=== PATIENT | female | born 1935 ===

== ENCOUNTER 2016-10-23 12:41 | Observation (INO) | payer MEDICARE ==
[2016-10-23 12:57] VITALS: BMI 21.4
[2016-10-23 13:02] VITALS: RESP 18; TEMP 98
--- NOTE | 2016-10-23 13:14 | ED PDOC ---
Arrival/HPI - General Historian: Patient - History of Present Illness Time/Duration: < week Symptom Onset: Gradual Symptom Course: Unchanged <Rikki White Jr. - Last Filed: 10/23/16 19:00> <Favian Nunes - Last Filed: 10/23/16 23:51> - General Chief Complaint: GI Problem Time Seen by Provider: 10/23/16 12:51 - History of Present Illness Narrative History of Present Illness (Text): 10/23/16 13:11 Patient is a 81 year old female whose past medical history includes hypertension , diabetes, hypothyroidism, neuropathy, anemia, and DVT presenting to the emergency department c/o nausea for the past two days. Patient also c/o having a decreased appetite. Denies vomiting, diarrhea, abdominal pain, chest pain, or fever. Patient also reports lower back pain; patient has a history of herniated discs (had surgery in the 1980s for the herniated discs). PMD: None (Rikki White Jr.) Modifying Factors (Text): None (Rikki White Jr.) Associated Symptoms (Text): None (Rikki White Jr.) Past Medical History - Provider Review Nursing Documentation Reviewed: Yes - Infectious Disease Hx of Infectious Diseases: None - Tetanus Immunization Tetanus Immunization: Unknown - Cardiac Hx Cardiac Disorders: Yes Hx Hypertension: Yes - Pulmonary Hx Respiratory Disorders: Yes Hx Chronic Obstructive Pulmonary Disease (COPD): Yes - Neurological Hx Neurological Disorder: Yes (NEUROPATHY, pain to both feet) Other/Comment: hand tremors - HEENT Hx HEENT Disorder: No - Renal Hx Renal Disorder: Yes Hx Renal Failure: Yes (CKD III) - Endocrine/Metabolic Hx Endocrine Disorders: Yes Hx Diabetes Mellitus Type 2: Yes Hx Hypothyroidism: Yes - Hematological/Oncological Hx Blood Disorders: Yes Hx Anemia: Yes - Integumentary Hx Dermatological Disorder: No - Musculoskeletal/Rheumatological Hx Musculoskeletal Disorders: Yes Hx Falls: Yes - Gastrointestinal Hx Gastrointestinal Disorders: Yes (gastroparesis/ constipation) Hx Gastroesophageal Reflux: Yes - Genitourinary/Gynecological Hx Genitourinary Disorders: No Hx Reproductive Disorders: No - Psychiatric Hx Psychophysiologic Disorder: Yes Hx Anxiety: Yes Hx Depression: No Hx Emotional Abuse: No Hx Physical Abuse: No Hx Substance Use: No - Surgical History Hx Appendectomy: Yes Hx Orthopedic Surgery: Yes (R/T HERNIATED DISC) - Anesthesia Hx Anesthesia: No Hx Anesthesia Reactions: No Hx Malignant Hyperthermia: No - Suicidal Assessment Feels Threatened In Home Enviroment: No <Rikki White Jr. - Last Filed: 10/23/16 19:00> Family/Social History - Physician Review Nursing Documentation Reviewed: Yes Family/Social History: Diabetes Smoking Status: Former Smoker Hx Alcohol Use: No Hx Substance Use: No Hx Substance Use Treatment: No <Rikki Wihte Jr. - Last Filed: 10/23/16 19:00> Allergies/Home Meds <Rikki White Jr. - Last Filed: 10/23/16 19:00> <Favian Nunes - Last Filed: 10/23/16 23:51> Allergies/Adverse Reactions: Allergies naproxen Allergy (Verified 10/23/16 13:00) RASH Home Medications: Home Meds Medication Instructions Recorded Confirmed Aspirin [Aspirin Chewable] 81 mg PO DAILY 08/28/16 08/28/16 Atorvastatin Calcium [Atorvastatin 10 mg PO DAILY 08/28/16 08/28/16 Calcium] Folic Acid [Folic Acid] 1 mg PO DAILY 08/28/16 08/28/16 Gabapentin [Neurontin] 400 mg PO HS 08/28/16 08/28/16 Levothyroxine [Synthroid] 75 mcg PO DAILY 08/28/16 08/28/16 Omeprazole [Omeprazole] 40 mg PO DAILY 08/28/16 08/28/16 Saxagliptin HCl/Metformin HCl 1 tab PO BID 08/28/16 08/28/16 [Kombiglyze Xr 2.5-1,000 mg Tab] Review of Systems - Physician Review All systems were reviewed & negative as marked: Yes - Review of Systems Constitutional: absent: Fevers Respiratory: absent: SOB Cardiovascular: absent: Chest Pain Gastrointestinal: Nausea. absent: Abdominal Pain, Diarrhea, Vomiting <Rikki White Jr. - Last Filed: 10/23/16 19:00> Physical Exam Vital Signs Reviewed: Yes Temperature: Afebrile Blood Pressure: Normal Pulse: Bradycardic Respiratory Rate: Normal Appearance: Positive for: Well-Appearing, Non-Toxic, Comfortable Pain Distress: None Mental Status: Positive for: Alert and Oriented X 3 - Systems Exam Head: Present: Atraumatic, Normocephalic Pupils: Present: PERRL Extroacular Muscles: Present: EOMI Conjunctiva: Present: Normal Mouth: Present: Moist Mucous Membranes Pharnyx: Present: Normal Nose (External): Present: Atraumatic Neck: Present: Normal Range of Motion Respiratory/Chest: Present: Clear to Auscultation, Good Air Exchange. No: Respiratory Distress, Accessory Muscle Use Cardiovascular: Present: Regular Rate and Rhythm, Normal S1, S2. No: Murmurs Abdomen: Present: Normal Bowel Sounds. No: Tenderness, Distention, Peritoneal Signs, Rebound, Guarding Back: Present: Normal Inspection Upper Extremity: Present: Normal Inspection. No: Cyanosis, Edema Lower Extremity: Present: Normal Inspection. No: Edema Neurological: Present: GCS=15, Speech Normal, Motor Func Grossly Intact, Normal Sensory Function Skin: Present: Warm, Dry, Normal Color. No: Rashes Psychiatric: Present: Alert, Oriented x 3, Normal Insight, Normal Concentration <Rikki White Jr. - Last Filed: 10/23/16 19:00> Vital Signs Temp Pulse Resp BP Pulse Ox 10/23/16 17:15 66 18 158/70 H 96 10/23/16 17:14 75 18 158/70 H 97 10/23/16 15:20 60 18 144/67 100 10/23/16 13:55 56 L 18 150/64 100 10/23/16 13:01 98.0 F 55 L 18 154/80 H 96 Medical Decision Making - RAD Interpretation [employer] Manager: Radiologist - EKG Interpretation Interpreted by ED Physician: Yes Type: 12 lead EKG <Rikki White Jr. - Last Filed: 10/23/16 19:00> <Favian Nunes - Last Filed: 10/23/16 23:51> ED Course and Treatment: Impression: Nausea Differential Diagnosis include but are not limited to: Dehydration, infection, electrolyte imbalance. Plan: -- Pepcid -- Labs -- Reassess and disposition -- Xrays Prior Visits: Notes and results from previous visits were reviewed. Patient last seen in ED on 08/28/16 for nausea/vomiting and discharged home. Pt has had CT scan in the past for her abdominal symptoms. Will not repeat CT right now; however, will order plain films. Progress Notes: 10/23/16 14:[address] Cabezas. He is familiar w/ the patient. He recommends treating in ED for hyperkalemia and he will come and evaluate the patient after his office hours. (Rikki White Jr.) - Lab Interpretations Lab Results: 10/23/16 13:40 10/23/16 14:22 Lab Results 10/23/16 14:22: Sodium 128 L, Potassium 5.8 H*, Chloride 97 L, Carbon Dioxide 21 , Anion Gap 16, BUN 19, Creatinine 1.7 H, Est GFR ( Amer) 35, Est GFR ( Non-Af Amer) 29, Random Glucose 84, Calcium 9.4 10/23/16 14:00: Urine Color Yellow, Urine Appearance Clear, Urine pH 6.5, Ur Specific Howe 1.010, Urine Protein Negative, Urine Glucose (UA) Negative, Urine Ketones Negative, Urine Blood Negative, Urine Nitrate Negative, Urine Bilirubin Negative, Urine Urobilinogen 0.2, Ur Leukocyte Esterase Negative 10/23/16 13:40: WBC 6.6, RBC 3.57, Hgb 11.6 L, Hct 33.3 L, MCV 93.3, MCH 32.5, MCHC 34.8, RDW 12.6, Plt Count 236, MPV 10.0, Gran % 53.4, Lymph % (Auto) 33.6, [place] % (Auto) 7.7 H, Eos % (Auto) 4.7, Baso % (Auto) 0.6, Gran # 3.53, Lymph # 2.2, [place] # 0.5, Eos # 0.3, Baso # 0.04, PT 11.3, INR 1.05, APTT 27.7, Sodium 131 L, Potassium 6.3 H* D, Chloride 95 L, Carbon Dioxide 25, Anion Gap 17, BUN 20, Creatinine 1.7 H, Est GFR ( Amer) 35, Est GFR (Non-Af Amer) 29, Random Glucose 85, Calcium 9.8, Total Bilirubin 0.6, AST 35, ALT 30, Alkaline Phosphatase 92, Lactate Dehydrogenase 431, Total Creatine Kinase 27 L, Troponin I < 0.01, Total Protein 8.6 H, Albumin 4.6, Globulin 4.0, Albumin/Globulin Ratio 1.2, Amylase 72, Lipase 56 - RAD Interpretation Narrative RAD Interpretations (Text): XR Abdomen Music Education Adjunct Professor: Tom Upton MD IMPRESSION: No active disease (Rikki White Jr.) Radiology Orders: 10/23/16 13:29 obstructive series [ABD 2 VIEWS (FLAT/UP OR DECUB)] [RAD] Stat - EKG Interpretation EKG Interpretation (Text): EKG shows sinus bradycardia at 52 BPM with sinus arrhythmia, no ST/T wave changes (Rikki White Jr.) - Medication Orders Current Medication Orders: Sodium Chloride (Sodium Chloride 0.9%) 1,000 mls @ 500 mls/hr IV .Q2H DIANA Last Admin: 10/23/16 14:45 Dose: 500 MLS/HR eMAR Start Stop Document 10/23/16 14:45 MMA (Rec: 10/23/16 14:45 MMA [email or web address] Intravenous Solution Start Date 10/23/16 Start Time 14:45 End Date 10/23/16 End time 16:45 Total Infusion Time 120 Discontinued Medications Albuterol Sulfate (Albuterol 0.083% Inhal Regina (2.5 Mg/3 Ml) Ud) 2.5 mg IH STAT STA Stop: 10/23/16 14:37 Last Admin: 10/23/16 15:00 Dose: 2.5 MG Dextrose (Dextrose 50% Inj) 50 ml IVP STAT STA Stop: 10/23/16 14:40 Last Admin: 10/23/16 15:00 Dose: 50 ML IVP Administration Document 10/23/16 15:00 MMA (Rec: 10/23/16 15:00 MMA [email or web address] Charges for Administration # of IVP Administrations 1 Famotidine (Pepcid) 20 mg IVP STAT STA Stop: 10/23/16 12:58 Last Admin: 10/23/16 13:32 Dose: 20 MG IVP Administration Document 10/23/16 13:32 MMA (Rec: 10/23/16 13:32 MMA [email or web address] Charges for Administration # of IVP Administrations 1 Sodium Chloride (Sodium Chloride 0.9%) 1,000 mls @ 100 mls/hr IV .Q10H DIANA Insulin Human Regular (Humulin R) 5 units IV STAT STA Stop: 10/23/16 14:40 Last Admin: 10/23/16 14:59 Dose: 5 UNITS eMAR Start Stop Document 10/23/16 14:59 MMA (Rec: 10/23/16 15:00 [email or web address]) Intravenous Solution Start Date 10/23/16 Start Time 14:59 End Date 10/23/16 End time 15:01 Total Infusion Time 2 Sodium Bicarbonate (Sodium Bicarbonate (8.4%) 50 Meq Syringe) 50 meq IVP ONCE ONE Stop: 10/23/16 14:39 Last Admin: 10/23/16 15:00 Dose: 50 MEQ IVP Administration Document 10/23/16 15:00 [facility] (Rec: 10/23/16 15:00 [email or web address]) Charges for Administration # of IVP Administrations 1 Sodium Polystyrene Sulfonate (Kayexalate Oral Susp) 15 gm PO STAT STA Stop: 10/23/16 14:18 Last Admin: 10/23/16 14:24 Dose: 15 GM Tramadol HCl (Ultram) 50 mg PO STAT STA Stop: 10/23/16 22:07 Last Admin: 10/23/16 22:45 Dose: 50 MG ED OBSERVATION Date of observation admission: 10/23/16 Time of observation admission: 14:41 <Rikki White Jr. - Last Filed: 10/23/16 19:00> Discharge: Yes <Favian Nunes - Last Filed: 10/23/16 23:51> - Observation admission statement Patient is being placed in observation because:: Pt's potassium is high. Will need to bring down potassium prior to sending the pt home. (Rikki White Jr.) - Goals of Observation Goals of observation are:: Improvement of hyperkalemia (Rikki White Jr.) - Progress Note Progress Note: 10/23/16 19:00 Case endorsed to me by Dr. White, pending re-evaluation by Dr. Cabezas. 10/23/16 22:[address] Cabezas, who states there is no reason to keep pt in hospital, potassium is now corrected. States he will follow-up outpt in his office tomorrow morning. (Favian Nunes) - Scribe Statement The provider has reviewed the documentation as recorded by the Scribe <Rikki Whtie Jr. - Last Filed: 10/23/16 19:00> <Favian Nunes - Last Filed: 10/23/16 23:51> - Scribe Statement Priyank Denton Provider Scribe Attestation: All medical record entries made by the Scribe were at my direction and personally dictated by me. I have reviewed the chart and agree that the record accurately reflects my personal performance of the history, physical exam, medical decision making, and the department course for this patient. I have also personally directed, reviewed, and agree with the discharge instructions and disposition. (Rikki White Jr.) Disposition/Present on Arrival - Present on Arrival Any Indicators Present on Arrival: No History of DVT/PE: No History of Uncontrolled Diabetes: No Urinary Catheter: No History of Decub. Ulcer: No History Surgical Site Infection Following: None - Disposition Have Diagnosis and Disposition been Completed?: Yes Disposition Time: 14:26 <Rikki White Jr. - Last Filed: 10/23/16 19:00> - Present on Arrival Any Indicators Present on Arrival: No - Disposition Have Diagnosis and Disposition been Completed?: Yes Disposition Time: 23:51 Patient Plan: Discharge <Favian Nunes - Last Filed: 10/23/16 23:51> - Disposition Diagnosis: Hyperkalemia, Nausea alone, Anorexia Disposition: HOME/ ROUTINE Patient Problems: Current Active Problems Problem Status Diagnosed Anorexia Acute Hyperkalemia Acute Nausea alone Acute Condition: GOOD Physician Patient Turnover - . Patient Signed Over To: Favian Nunes Handoff Comments: Pt s/o to Dr. Nunes at 7PM. Signout is to follow the recommendations of Dr. Cabezas. The plan is for Dr. Cabezas to come to the ED to assess the patient. <Rikki White Jr. - Last Filed: 10/23/16 19:00>
[2016-10-23 13:42] LABS: ADD MANUAL DIFF? NO
[2016-10-23 13:47] LABS: BASO # 0.04 K/mm3 (0.0-2.0); BASO % 0.6 % (0.0-3.0); EOS # 0.3 (0.0-0.7); EOS % 4.7 % (1.5-5.0); GRAN # 3.53 (1.4-6.5); GRAN % 53.4 % (50.0-68.0); HEMATOCRIT 33.3 % (36.0-48.0); LYMPH # 2.2 (1.2-3.4); LYMPH % 33.6 % (22.0-35.0); MEAN CELL VOLUME 93.3 fL (80.0-105.0); MEAN CORPUSCULAR HEMOGLOBIN 32.5 pg (25.0-35.0); MEAN CORPUSCULAR HGB CONC 34.8 g/dl (31.0-37.0); MONO # 0.5 (0.1-0.6); MONO % 7.7 % (1.0-6.0); PLATELET COUNT 236 10^3/uL (120.0-450.0); RED CELL DISTRIBUTION WIDTH 12.6 % (11.5-14.5); WHITE BLOOD COUNT 6.6 10^3/ul (4.5-11.0)
--- NOTE | 2016-10-23 13:54 | RAD ---
HISTORY: Pt c/o nausea COMPARISON: No prior. FINDINGS: BOWEL: Normal. No obstruction. No free air. Mild constipation left-sided: BONES: Normal. OTHER FINDINGS: None. IMPRESSION: No active disease.
[2016-10-23 13:57] LABS: INR 1.05 (0.93-1.08); PARTIAL THROMBOPLASTIN TIME 27.7 Seconds (23.7-30.8)
[2016-10-23 14:00] LABS: ALB/GLOB RATIO 1.2 (1.1-1.8); ALKALINE PHOSPHATASE 92 U/L (38-133); ALT/SGPT 30 U/L (7-56); AMYLASE 72 U/L (35-125); AST/SGOT 35 U/L (15-39); BILIRUBIN,TOTAL 0.6 mg/dL (0.2-1.3); BLOOD UREA NITROGEN 20 mg/dL (7-21); CALCIUM 9.8 mg/dL (8.4-10.5); CARBON DIOXIDE 25 mmol/L (21-33); CHLORIDE 95 mmol/L (98-107); GFR AFRICAN-AMERICAN 35; GLUCOSE,RANDOM 85 mg/dL (70-110); LIPASE 56 U/L (23-300); SODIUM 131 mmol/L (132-148); TOTAL PROTEIN 8.6 g/dL (5.8-8.3)
[2016-10-23 14:11] LABS: TROPONIN I < 0.01 ng/mL
[2016-10-23] MEDS ORDERED: Sod Polystyrene Sulf 15 gm/60 ml Oral Susp PO STA (14:17)
[2016-10-23 14:19] LABS: POTASSIUM 6.3 mmol/L (3.6-5.0)
[2016-10-23 14:26] LABS: PH,URINE 6.5 (4.7-8.0); URINE BILIRUBIN NEGATIVE (NEGATIVE); URINE BLOOD NEGATIVE (NEGATIVE); URINE GLUCOSE (UA) NEGATIVE (NEGATIVE); URINE KETONE NEGATIVE (NEGATIVE); URINE LEUKOCYTE ESTERASE NEGATIVE Leu/uL (NEGATIVE); URINE PROTEIN NEGATIVE mg/dL (<30 mg/dL); URINE UROBILINOGEN 0.2 E.U./dL (<1 E.U./dL)
[2016-10-23] MEDS ORDERED: Sodium Chloride 0.9% 1,000 ML IV SCH ×2 (14:30→14:37)
[2016-10-23] MEDS ORDERED: Albuterol 0.083% Inhal Sol (2.5 mg/3 mL) UD IH STA (14:36)
[2016-10-23] MEDS ORDERED: Sodium Bicarbonate (8.4%) 50 Meq Syringe IVP ONE (14:38)
[2016-10-23 14:39] LABS: URINE APPEARANCE CLEAR (CLEAR); URINE COLOR YELLOW (YELLOW)
[2016-10-23] MEDS ORDERED: Insulin Regular 1 UNITS/0.01 ML ML IV STA (14:39)
[2016-10-23] MEDS ORDERED: Dextrose 50% SYRINGE Inj (50 ml) IVP STA (14:39)
[2016-10-23 14:48] LABS: CALCIUM 9.4 mg/dL (8.4-10.5)
[2016-10-23 14:51] LABS: POTASSIUM 5.8 mmol/L (3.6-5.0)
[2016-10-23 17:16] VITALS: PULSE 66
[2016-10-23 17:27] LABS: BLOOD UREA NITROGEN 18 mg/dL (7-21); CALCIUM 9.1 mg/dL (8.4-10.5); CARBON DIOXIDE 24 mmol/L (21-33); CHLORIDE 99 mmol/L (98-107); GFR AFRICAN-AMERICAN 38; GLUCOSE,RANDOM 79 mg/dL (70-110); POTASSIUM 4.8 mmol/L (3.6-5.0); SODIUM 135 mmol/L (132-148)
[2016-10-23 17:40] LABS: TROPONIN I < 0.01 ng/mL
[2016-10-24 00:43] VITALS: BP 164/72; O2SAT 95
--- NOTE | 2016-10-24 08:59 | CARD ---
APPROVED REPORT EKG Measurement Heart [id number] <Conclusion> Sinus bradycardia with sinus arrhythmia Inferior infarct, age undetermined Abnormal ECG
== END 2016-10-23 23:51 | disposition home or self-care (01) ==
LOC: ED 12:41 → EROBSV 14:40
PROVIDERS: ADMIT Emergency Medicine; ATTEND Emergency Medicine
DX: K31.84 Gastroparesis (principal); E87.5 Hyperkalemia; R63.0 Anorexia; Z87.891 Personal history of nicotine dependence; I12.9 Hypertensive chronic kidney disease with stage 1 through stage 4 chronic kidney disease, or unspecified chronic kidney disease; N18.3 Chronic kidney disease, stage 3 (moderate); E11.9 Type 2 diabetes mellitus without complications
CPT/HCPCS: 74020; 80053; 81003; 82150; 82550; 82948; 83615; 83690; 84132; 84484; 85025; 85610; 85730; 93005; 94640; 96361; 96374; 96375; 99285; G0378; J7040

== ENCOUNTER 2017-01-25 09:21 | Emergency (ER) | payer MEDICARE ==
[2017-01-25 09:34] VITALS: BMI 23.4
[2017-01-25 09:36] VITALS: TEMP 98.7; O2SAT 99
--- NOTE | 2017-01-25 09:55 | ED PDOC ---
Arrival/HPI - General Chief Complaint: Hip Pain Time Seen by Provider: 01/25/17 09:47 Historian: Patient - History of Present Illness Narrative History of Present Illness (Text): 01/25/17 09:48 Mirela Guadalupe is a 81 year old female, with a history of CAD, COPD, hypertension , diabetes, hypothyroidism, and neuropathy, presents to the emergency department complaining of 1 week duration of intermittent right hip pain radiating down right leg. Describes symptoms as "sticking with needle." Patient used to be on Gabapentin for neuropathy, but is currently not taking it. States she took Tramadol for minimal symptomatic relief. Denies any numbness/weakness of extremity. No history of trauma. Denies any fever, chills, headache, chest pain, shortness of breath, abdominal pain, nausea, vomiting, diarrhea, or any other complaints at this time. Time/Duration: 1 week Symptom Onset: Gradual Symptom Course: Intermittent Severity Level: Mild Activities at Onset: Light Past Medical History - Provider Review Nursing Documentation Reviewed: Yes - Infectious Disease Hx of Infectious Diseases: None - Tetanus Immunization Tetanus Immunization: Unknown - Cardiac Hx Cardiac Disorders: Yes Hx Hypertension: Yes - Pulmonary Hx Respiratory Disorders: Yes Hx Chronic Obstructive Pulmonary Disease (COPD): Yes - Neurological Hx Neurological Disorder: Yes (NEUROPATHY, pain to both feet) Other/Comment: hand tremors - HEENT Hx HEENT Disorder: No - Renal Hx Renal Disorder: Yes Hx Renal Failure: Yes (CKD III) - Endocrine/Metabolic Hx Endocrine Disorders: Yes Hx Diabetes Mellitus Type 2: Yes Hx Hypothyroidism: Yes - Hematological/Oncological Hx Blood Disorders: Yes Hx Anemia: Yes - Integumentary Hx Dermatological Disorder: No - Musculoskeletal/Rheumatological Hx Musculoskeletal Disorders: Yes Hx Falls: Yes - Gastrointestinal Hx Gastrointestinal Disorders: Yes (gastroparesis/ constipation) Hx Gastroesophageal Reflux: Yes - Genitourinary/Gynecological Hx Genitourinary Disorders: No Hx Reproductive Disorders: No - Psychiatric Hx Psychophysiologic Disorder: Yes Hx Anxiety: Yes Hx Depression: No Hx Emotional Abuse: No Hx Physical Abuse: No Hx Substance Use: No - Surgical History Hx Appendectomy: Yes Hx Orthopedic Surgery: Yes (R/T HERNIATED DISC) - Anesthesia Hx Anesthesia: No Hx Anesthesia Reactions: No Hx Malignant Hyperthermia: No - Suicidal Assessment Feels Threatened In Home Enviroment: No Family/Social History - Physician Review Nursing Documentation Reviewed: Yes Family/Social History: No Known Family HX Smoking Status: Former Smoker Hx Alcohol Use: No Hx Substance Use: No Hx Substance Use Treatment: No Allergies/Home Meds Allergies/Adverse Reactions: Allergies naproxen Allergy (Verified 01/25/17 09:31) RASH Home Medications: Home Meds Medication Instructions Recorded Confirmed Aspirin [Aspirin Chewable] 81 mg PO DAILY 08/28/16 01/25/17 Folic Acid [Folic Acid] 1 mg PO DAILY 08/28/16 01/25/17 Gabapentin [Neurontin] 400 mg PO HS 08/28/16 01/25/17 Levothyroxine [Synthroid] 75 mcg PO DAILY 08/28/16 01/25/17 Omeprazole [Omeprazole] 40 mg PO DAILY 08/28/16 01/25/17 Atorvastatin Calcium 10 mg PO DAILY 01/25/17 01/25/17 Saxagliptin HCl/Metformin HCl 1 ter PO DAILY 01/25/17 01/25/17 [Kombiglyze Xr 1000 mg-2.5 mg] traMADol [Ultram] 50 mg PO TID PRN 01/25/17 01/25/17 Review of Systems - Physician Review All systems were reviewed & negative as marked: Yes - Review of Systems Constitutional: Normal. absent: Fatigue, Fevers Respiratory: Normal. absent: SOB, Cough, Sputum Cardiovascular: Normal. absent: Chest Pain, Palpitations Gastrointestinal: Normal. absent: Abdominal Pain, Diarrhea, Nausea Genitourinary Female: Normal Musculoskeletal: Other (Right hip pain radiating down right leg ) Neurological: Normal. absent: Headache, Dizziness Psychiatric: Normal Physical Exam Vital Signs Reviewed: Yes Vital Signs Temp Pulse Resp BP Pulse Ox 01/25/17 10:52 62 18 179/74 H 99 01/25/17 09:35 98.7 F 60 17 185/85 H 99 Temperature: Afebrile Blood Pressure: Hypertensive Pulse: Regular Respiratory Rate: Normal Appearance: Positive for: Well-Appearing, Non-Toxic, Comfortable Pain Distress: None Mental Status: Positive for: Alert and Oriented X 3 - Systems Exam Head: Present: Atraumatic, Normocephalic Pupils: Present: PERRL Extroacular Muscles: Present: EOMI Conjunctiva: Present: Normal Mouth: Present: Moist Mucous Membranes Respiratory/Chest: Present: Clear to Auscultation, Good Air Exchange. No: Respiratory Distress, Accessory Muscle Use Cardiovascular: Present: Regular Rate and Rhythm, Normal S1, S2. No: Murmurs Abdomen: Present: Normal Bowel Sounds. No: Tenderness, Distention, Peritoneal Signs, Rebound, Guarding Upper Extremity: Present: Normal Inspection. No: Cyanosis, Edema Lower Extremity: Present: Normal Inspection, NORMAL PULSES, Normal ROM, Neurovascularly Intact, Capillary Refill < 2 s. No: Edema, CALF TENDERNESS, Cyanosis, Tenderness, Swelling, Erythema, Deformity, Temperature Abnormalties Neurological: Present: GCS=15, CN II-XII Intact, Speech Normal Skin: Present: Warm, Dry, Normal Color. No: Rashes Psychiatric: Present: Alert, Oriented x 3, Normal Insight, Normal Concentration Medical Decision Making ED Course and Treatment: 01/25/17 09:57 Impression: A 81 year old female who presents to the emergency department complaining of 1 week duration intermittent right hip pain radiating down right leg. Differential Diagnosis included but are not limited to: Plan: -- Tylenol -- R.Hip X-ray -- Reassess and disposition Progress Notes: 01/25/17 11:20 Patient's blood glucose level was elevated in the emergency department. She admits she is not compliant with her diabetic medication at home. Denies any fever, polydipsia, polyuria, or polyphagia. Will discharge patient home with pain medication for right hip pain and diabetic medication that is on the computer system. Patient is stable for discharge. Advised to f/u with PMD within 3-4 days and present to emergency department for new/worsening symptoms. - RAD Interpretation Radiology Orders: 01/25/17 09:54 HIP MIN 2V W/ PELVIS RT [RAD] Stat - Medication Orders Current Medication Orders: Discontinued Medications Acetaminophen (Tylenol 325mg Tab) 975 mg PO STAT STA Stop: 01/25/17 09:55 Last Admin: 01/25/17 10:04 Dose: 975 mg Metformin HCl (Glucophage) 500 mg PO STAT STA Stop: 01/25/17 10:36 Last Admin: 01/25/17 10:49 Dose: 500 mg - Scribe Statement The provider has reviewed the documentation as recorded by the Kay Domingo Provider Attestation: Provider Scribe Attestation: All medical record entries made by the Kay were at my direction and personally dictated by me. I have reviewed the chart and agree that the record accurately reflects my personal performance of the history, physical exam, medical decision making, and the department course for this patient. I have also personally directed, reviewed, and agree with the discharge instructions and disposition. Disposition/Present on Arrival - Present on Arrival Any Indicators Present on Arrival: Yes History of DVT/PE: No History of Uncontrolled Diabetes: Yes Urinary Catheter: No History of Decub. Ulcer: No History Surgical Site Infection Following: None - Disposition Have Diagnosis and Disposition been Completed?: Yes Diagnosis: Osteoarthritis (arthritis due to wear and tear of joints), Hyperglycemia due to type 2 diabetes mellitus Disposition: HOME/ ROUTINE Disposition Time: 10:45 Condition: IMPROVED Discharge Instructions (ExitCare): Osteoarthritis (ED), Diabetic Hyperglycemia (ED) Additional Instructions: Thank you for letting us take care of you today. Your provider was Dr. Avery. You were treated for arthritis of the hip and elevated blood sugar. The emergency medical care you received today was directed at your acute symptoms. If you were prescribed any medication, please fill it and take as directed. It may take several days for your symptoms to resolve. Return to the Emergency Department if your symptoms worsen, do not improve, or if you have any other problems. Please contact your doctor or call one of the physicians/clinics you have been referred to that are listed on the Patient Visit Information form that is included in your discharge packet. Bring any paperwork you were given at discharge with you along with any medications you are taking to your follow up visit. Our treatment cannot replace ongoing medical care by a primary care provider (PCP) outside of the emergency department. Thank you for allowing the [facility] team to be part of your care today. Take the prescription medications as directed. Follow up with your primary doctor in 2-3 days for re-evaluation and management. Prescriptions: Gabapentin [Neurontin] 300 mg PO DAILY #7 capsule metFORMIN [glucOPHAGE] 500 mg PO DAILY #10 tab traMADol [Ultram] 50 mg PO Q6 PRN #15 tab PRN Reason: Pain, Severe (8-10) Referrals: PCP,NO [Primary Care Provider] - Follow up with primary
--- NOTE | 2017-01-25 10:41 | RAD ---
PROCEDURE: Radiographs of the Pelvis and right hip INDICATION: COMPARISON: None. FINDINGS: AP view of the pelvis and frog-lateral view of the right hip were obtained. The pelvic ring is intact. There is no evidence of fracture, dislocation or other significant bony abnormality. There is mild degenerative osteoarthrosis in the hip joints. The sacroiliac joints are normal. . There is diffuse bone demineralization.. The visualized soft tissues are unremarkable. IMPRESSION: No acute displaced fracture or dislocation. Please note occult fractures cannot be excluded on plain radiographs. If there is a persistent clinical concern, an MRI of the hip may be performed for further evaluation.
[2017-01-25 10:59] VITALS: BP 179/74; PULSE 62; RESP 18
== END 2017-01-25 12:00 | disposition home or self-care (01) ==
LOC: ED 09:21
DX: E11.65 Type 2 diabetes mellitus with hyperglycemia (principal); M19.90 Unspecified osteoarthritis, unspecified site; I12.9 Hypertensive chronic kidney disease with stage 1 through stage 4 chronic kidney disease, or unspecified chronic kidney disease; N18.3 Chronic kidney disease, stage 3 (moderate); E03.9 Hypothyroidism, unspecified; J44.9 Chronic obstructive pulmonary disease, unspecified

== ENCOUNTER 2017-08-30 11:58 | Emergency (ER) | payer MEDICARE ==
[2017-08-30 12:01] VITALS: BMI 23.6
[2017-08-30] MEDS ORDERED: Famotidine 20mg/50ml 20 MG/50 ML BAG IVPB STA (12:34)
--- NOTE | 2017-08-30 12:41 | ED PDOC ---
Arrival/HPI - General Chief Complaint: GI Problem Time Seen by Provider: 08/30/17 12:23 Historian: Patient - History of Present Illness Narrative History of Present Illness (Text): 08/30/17 12:37 82 year old female, with past medical history of CAD, COPD, hypertension, diabetes, hypothyroidism and neuropathy, presents to the Emergency department complaining of abdominal discomfort since few days. Patient informs burning sensation in her stomach, making it difficult to comply with her diet. Patient denies any stomach ulcer in the past. Patient additionally informs associated chronic bilateral leg discomfort and diarrhea. Patient denies any fever, chills , nausea, vomiting, hematochezia, chest pain, shortness of breath or any other complaints. PMD: NO PMD Time/Duration: < week Symptom Onset: Gradual Symptom Course: Unchanged Quality: Burning Activities at Onset: Light Context: Home Past Medical History - Provider Review Nursing Documentation Reviewed: Yes - Infectious Disease Hx of Infectious Diseases: None - Tetanus Immunization Tetanus Immunization: Unknown - Cardiac Hx Cardiac Disorders: Yes Hx Hypertension: Yes - Pulmonary Hx Respiratory Disorders: Yes Hx Chronic Obstructive Pulmonary Disease (COPD): Yes - Neurological Hx Neurological Disorder: Yes (NEUROPATHY, pain to both feet) Other/Comment: hand tremors - HEENT Hx HEENT Disorder: No - Renal Hx Renal Disorder: Yes Hx Renal Failure: Yes (CKD III) - Endocrine/Metabolic Hx Endocrine Disorders: Yes Hx Diabetes Mellitus Type 2: Yes Hx Hypothyroidism: Yes - Hematological/Oncological Hx Blood Disorders: Yes Hx Anemia: Yes - Integumentary Hx Dermatological Disorder: No - Musculoskeletal/Rheumatological Hx Musculoskeletal Disorders: Yes Hx Falls: Yes - Gastrointestinal Hx Gastrointestinal Disorders: Yes (gastroparesis/ constipation) Hx Gastroesophageal Reflux: Yes - Genitourinary/Gynecological Hx Genitourinary Disorders: No Hx Reproductive Disorders: No - Psychiatric Hx Psychophysiologic Disorder: Yes Hx Anxiety: Yes Hx Depression: No Hx Emotional Abuse: No Hx Physical Abuse: No Hx Substance Use: No - Surgical History Hx Appendectomy: Yes Hx Orthopedic Surgery: Yes (R/T HERNIATED DISC) - Anesthesia Hx Anesthesia: Yes Hx Anesthesia Reactions: No Hx Malignant Hyperthermia: No - Suicidal Assessment Feels Threatened In Home Enviroment: No Family/Social History - Physician Review Nursing Documentation Reviewed: Yes Family/Social History: No Known Family HX Smoking Status: Former Smoker Hx Alcohol Use: No Hx Substance Use: No Hx Substance Use Treatment: No Allergies/Home Meds Allergies/Adverse Reactions: Allergies naproxen Allergy (Verified 01/25/17 09:31) RASH Home Medications: Home Meds Medication Instructions Recorded Confirmed Aspirin [Aspirin Chewable] 81 mg PO DAILY 08/28/16 08/30/17 Levothyroxine [Synthroid] 75 mcg PO DAILY 08/28/16 08/30/17 Omeprazole [Omeprazole] 40 mg PO DAILY 08/28/16 08/30/17 traMADol [Ultram] 50 mg PO TID PRN 01/25/17 08/30/17 ALPRAZolam [Xanax] 1 tab PO QID 08/30/17 08/30/17 Gabapentin [Neurontin] 300 mg PO TID 08/30/17 08/30/17 GlipiZIDE [Glucotrol] 1 tab PO BID 08/30/17 08/30/17 Metoprolol Tartrate [Lopressor] 1 tab PO BID 08/30/17 08/30/17 Mirtazapine [Remeron] 1 tab PO HS 08/30/17 08/30/17 Multivitamin [Honey Bears] 1 tab PO DAILY 08/30/17 08/30/17 SITagliptin [Januvia] 1 tab PO DAILY 08/30/17 08/30/17 Zolpidem [Ambien] 1 tab PO HS 08/30/17 08/30/17 metFORMIN [glucOPHAGE] 1,000 mg PO BID 08/30/17 08/30/17 Review of Systems - Physician Review All systems were reviewed & negative as marked: Yes - Review of Systems Constitutional: Normal. absent: Fevers Eyes: Normal ENT: Normal Respiratory: Normal. absent: SOB Cardiovascular: Normal. absent: Chest Pain Gastrointestinal: Abdominal Pain (burning sensation of stomach), Diarrhea, Appetite Changes. absent: Nausea, Vomiting, Hematochezia Genitourinary Female: Normal Musculoskeletal: Other (chronic bilateral leg discomfort) Skin: Normal Neurological: Normal Endocrine: Normal Hemo/Lymphatic: Normal Psychiatric: Normal Physical Exam Vital Signs Reviewed: Yes Vital Signs Temp Pulse Resp BP Pulse Ox 08/30/17 15:41 97.8 F 63 19 130/57 L 96 08/30/17 14:19 59 L 18 122/72 97 08/30/17 12:04 97.5 F L 66 18 157/93 H 100 Temperature: Afebrile Blood Pressure: Hypertensive Pulse: Regular Respiratory Rate: Normal Appearance: Positive for: Non-Toxic, Comfortable, Other (pale) Pain Distress: None Mental Status: Positive for: Alert and Oriented X 3 - Systems Exam Head: Present: Atraumatic, Normocephalic Pupils: Present: PERRL Extroacular Muscles: Present: EOMI Conjunctiva: Present: Normal Mouth: Present: Moist Mucous Membranes Neck: Present: Normal Range of Motion Respiratory/Chest: Present: Clear to Auscultation, Good Air Exchange. No: Respiratory Distress, Accessory Muscle Use Cardiovascular: Present: Regular Rate and Rhythm, Normal S1, S2. No: Murmurs Abdomen: Present: Normal Bowel Sounds. No: Tenderness, Distention, Peritoneal Signs Back: Present: Normal Inspection Upper Extremity: Present: Normal Inspection. No: Cyanosis, Edema Lower Extremity: Present: Normal Inspection, Other (mild discomfort upon elevation of right leg). No: Edema Neurological: Present: GCS=15, CN II-XII Intact, Speech Normal Skin: Present: Warm, Dry, Pale. No: Rashes Psychiatric: Present: Alert, Oriented x 3, Normal Insight, Normal Concentration Medical Decision Making ED Course and Treatment: 08/30/17 12:44 Impression: 82 year old female presents to the Emergency department for burning sensation to stomach. Plan: -- Labs -- Famotidine -- Reassess and disposition Progress Notes: 08/30/17 17:21 labs much better; feels better; stable for discharge - Lab Interpretations Lab Results: 08/30/17 12:30 08/30/17 15:55 Lab Results 08/30/17 15:55: Potassium 4.3 08/30/17 15:36: POC Glucose (mg/dL) 132 H 08/30/17 12:30: Sodium 130 L, Potassium 5.6 H*, Chloride 91 L, Carbon Dioxide 23 , Anion Gap 22 H, BUN 22 H, Creatinine 1.6 H, Est GFR ( Amer) 38, Est GFR (Non-Af Amer) 31, Random Glucose 303 H* D, Calcium 9.8, Total Bilirubin 0.3 , AST 27, ALT 28, Alkaline Phosphatase 78, Total Protein 7.5, Albumin 4.1, Globulin 3.5, Albumin/Globulin Ratio 1.2, Amylase 46, Lipase 84 08/30/17 12:30: WBC 7.8, RBC 3.76, Hgb 11.0 L, Hct 33.7 L, MCV 89.6, MCH 29.3, MCHC 32.6, RDW 14.0, Plt Count 267, MPV 10.4, Gran % 67.6, Lymph % (Auto) 24.6, [place] % (Auto) 5.3, Eos % (Auto) 2.2, Baso % (Auto) 0.3, Gran # 5.26, Lymph # ( Auto) 1.9, [place] # (Auto) 0.4, Eos # (Auto) 0.2, Baso # (Auto) 0.02 - Medication Orders Current Medication Orders: Discontinued Medications Famotidine (Pepcid 20mg/50ml Premix) 20 mg in 50 mls @ 100 mls/hr IVPB STAT STA Stop: 08/30/17 13:03 Last Admin: 08/30/17 12:58 Dose: 100 mls/hr eMAR Start Stop Document 08/30/17 12:58 EAR (Rec: 08/30/17 12:59 EAR [id number]) Intravenous Solution Start Date 08/30/17 Start Time 12:58 End Date 08/30/17 End time 13:25 Total Infusion Time 27 Sodium Chloride (Sodium Chloride 0.9%) 1,000 mls @ 999 mls/hr IV .Q1H1M STA Stop: 08/30/17 14:23 Last Admin: 08/30/17 14:13 Dose: 999 mls/hr eMAR Start Stop Document 08/30/17 14:13 EAR (Rec: 08/30/17 14:14 EAR [id number]) Intravenous Solution Start Date 08/30/17 Start Time 14:13 End Date 08/30/17 End time 15:15 Total Infusion Time 62 Insulin Human Regular (Humulin R) 10 units SC STAT STA Stop: 08/30/17 13:25 Last Admin: 08/30/17 14:09 Dose: 10 units Subcutaneous Administrations Document 08/30/17 14:09 EAR (Rec: 08/30/17 14:10 EAR [id number]) Injection Site MAR Injection Site Left Deltoid Charges for Administration # of Subcutaneous Administrations 1 Sodium Polystyrene Sulfonate (Kayexalate Susp) 15 gm PO STAT STA Stop: 08/30/17 13:25 Last Admin: 08/30/17 14:11 Dose: 15 gm - Scribe Statement The provider has reviewed the documentation as recorded by the Scribe Wilmer Melo. All medical record entries made by the Scribe were at my direction and personally dictated by me. I have reviewed the chart and agree that the record accurately reflects my personal performance of the history, physical exam, medical decision making, and the department course for this patient. I have also personally directed, reviewed, and agree with the discharge instructions and disposition. Disposition/Present on Arrival - Present on Arrival Any Indicators Present on Arrival: No History of DVT/PE: No History of Uncontrolled Diabetes: Yes Urinary Catheter: No History of Decub. Ulcer: No History Surgical Site Infection Following: None - Disposition Have Diagnosis and Disposition been Completed?: Yes Diagnosis: Hyperglycemia, Hyperkalemia, Gastritis Disposition: HOME/ ROUTINE Disposition Time: 17:30 Patient Plan: Discharge Condition: IMPROVED Discharge Instructions (ExitCare): Gastritis, Hyperglycemia, Adult, Hyperkalemia Referrals: Shellcatchjose g Dunbar, [Primary Care Provider] - Follow up with primary Forms: [employer] (Setswana)
[2017-08-30 13:20] LABS: ALB/GLOB RATIO 1.2 (1.1-1.8)
[2017-08-30] MEDS ORDERED: Sodium Chloride 0.9% 1,000 ML IV STA (13:23)
[2017-08-30] MEDS ORDERED: Insulin Regular 1 UNITS/0.01 ML ML SC STA (13:24)
[2017-08-30] MEDS ORDERED: Sod Polystyrene Sulf 15 gm/60 ml Susp PO STA (13:24)
[2017-08-30 13:29] LABS: BASO # 0.02 K/mm3 (0.0-2.0); BASO % 0.3 % (0.0-3.0); EOS # 0.2 (0.0-0.7); EOS % 2.2 % (1.5-5.0); GRAN # 5.26 (1.4-6.5); GRAN % 67.6 % (50.0-68.0); LYMPH # 1.9 (1.2-3.4); LYMPH % 24.6 % (22.0-35.0); MEAN CELL VOLUME 89.6 fl (80.0-105.0); MEAN CORPUSCULAR HEMOGLOBIN 29.3 pg (25.0-35.0); MEAN CORPUSCULAR HGB CONC 32.6 g/dl (31.0-37.0); MEAN PLATELET VOLUME 10.4 fl (7.0-11.0); MONO # 0.4 (0.1-0.6); MONO % 5.3 % (1.0-6.0); RBC 3.76 10^6/uL (3.5-6.1); WHITE BLOOD COUNT 7.8 10^3/ul (4.5-11.0)
[2017-08-30 13:38] LABS: ALBUMIN 4.1 g/dL (3.0-4.8); CALCIUM 9.8 mg/dL (8.4-10.5)
[2017-08-30 15:42] VITALS: BP 130/57; PULSE 63; RESP 19; TEMP 97.8
[2017-08-30 17:48] VITALS: O2SAT 99
== END 2017-08-30 17:48 | disposition home or self-care (01) ==
LOC: ED 11:58
DX: K29.70 Gastritis, unspecified, without bleeding (principal); E11.65 Type 2 diabetes mellitus with hyperglycemia; E87.5 Hyperkalemia; I25.10 Atherosclerotic heart disease of native coronary artery without angina pectoris; I12.9 Hypertensive chronic kidney disease with stage 1 through stage 4 chronic kidney disease, or unspecified chronic kidney disease; E11.22 Type 2 diabetes mellitus with diabetic chronic kidney disease; N18.3 Chronic kidney disease, stage 3 (moderate); Z87.891 Personal history of nicotine dependence
CPT/HCPCS: 80053; 82150; 82948; 83690; 84132; 85025; 96361; 96365; 99284; J7040

== ENCOUNTER 2017-10-14 12:16 | Emergency (ER) | payer MEDICARE ==
[2017-10-14 12:17] VITALS: BMI 23.6
[2017-10-14 12:28] VITALS: TEMP 98.3
[2017-10-14 12:40] VITALS: RESP 18
[2017-10-14] MEDS ORDERED: Famotidine 20mg/50ml 20 MG in Premixed IV 50 EA IVPB STA (12:42)
[2017-10-14] MEDS ORDERED: Alum-Mag Hydrox-Simethicone Susp (30 mL) PO STA (12:50)
[2017-10-14] MEDS ORDERED: Famotidine 20mg/50ml 20 MG/50 ML BAG IVPB STA (12:51)
--- NOTE | 2017-10-14 12:56 | ED PDOC ---
Arrival/HPI - General Chief Complaint: Abdominal Pain Time Seen by Provider: 10/14/17 12:22 Historian: Patient - History of Present Illness Narrative History of Present Illness (Text): 10/14/17 12:50 A 82 year old female presents to the emergency department complaining of epigastric burning radiating into the since last night. She reports that she has a sour taste in her mouth. Patient notes 1 episode of vomiting this morning. Patient was seen 3 weeks ago for same symptoms and was instructed to see a cost estimating manager. She reports that she made the initial appt but when she called today for a follow-up appt, because he was on vacation she came to the ED instead. Denies any new symptoms. Denies abdominal pain. Denies urinary complaints. Reports normal bowel and bladder habits. Denies chest pain or shortness of breath. Denies fever. reports that symptoms are always related to food intake. 10/14/17 16:24 Time/Duration: Other (last night) Symptom Course: Unchanged Quality: Burning Context: Home Past Medical History - Provider Review Nursing Documentation Reviewed: Yes - Infectious Disease Hx of Infectious Diseases: None - Tetanus Immunization Tetanus Immunization: Unknown - Cardiac Hx Cardiac Disorders: Yes Hx Hypertension: Yes - Pulmonary Hx Respiratory Disorders: Yes Hx Chronic Obstructive Pulmonary Disease (COPD): Yes - Neurological Hx Neurological Disorder: Yes (NEUROPATHY) Other/Comment: hand tremors - HEENT Hx HEENT Disorder: No - Renal Hx Renal Disorder: Yes Hx Renal Failure: Yes (CKD III) - Endocrine/Metabolic Hx Endocrine Disorders: Yes Hx Diabetes Mellitus Type 2: Yes Hx Hypothyroidism: Yes - Hematological/Oncological Hx Blood Disorders: Yes Hx Anemia: Yes - Integumentary Hx Dermatological Disorder: No - Musculoskeletal/Rheumatological Hx Musculoskeletal Disorders: Yes Hx Falls: Yes - Gastrointestinal Hx Gastrointestinal Disorders: Yes (gastroparesis/ constipation) Hx Gastroesophageal Reflux: Yes - Genitourinary/Gynecological Hx Genitourinary Disorders: No Hx Reproductive Disorders: No - Psychiatric Hx Psychophysiologic Disorder: Yes Hx Anxiety: Yes Hx Depression: No Hx Emotional Abuse: No Hx Physical Abuse: No Hx Substance Use: No - Surgical History Hx Appendectomy: Yes Hx Orthopedic Surgery: Yes (R/T HERNIATED DISC) - Anesthesia Hx Anesthesia: Yes Hx Anesthesia Reactions: No Hx Malignant Hyperthermia: No - Suicidal Assessment Feels Threatened In Home Enviroment: No Family/Social History - Physician Review Nursing Documentation Reviewed: Yes Family/Social History: No Known Family HX Smoking Status: Former Smoker Hx Alcohol Use: No Hx Substance Use: No Hx Substance Use Treatment: No Allergies/Home Meds Allergies/Adverse Reactions: Allergies naproxen Allergy (Verified 10/14/17 12:21) RASH Home Medications: Home Meds Medication Instructions Recorded Confirmed Aspirin [Aspirin Chewable] 81 mg PO DAILY 08/28/16 10/14/17 Levothyroxine [Synthroid] 75 mcg PO DAILY 08/28/16 10/14/17 Omeprazole [Omeprazole] 40 mg PO DAILY 08/28/16 10/14/17 traMADol [Ultram] 50 mg PO TID PRN 01/25/17 10/14/17 ALPRAZolam [Xanax] 1 tab PO QID 08/30/17 10/14/17 Gabapentin [Neurontin] 300 mg PO TID 08/30/17 10/14/17 GlipiZIDE [Glucotrol] 1 tab PO BID 08/30/17 10/14/17 Metoprolol Tartrate [Lopressor] 1 tab PO BID 08/30/17 10/14/17 Mirtazapine [Remeron] 1 tab PO HS 08/30/17 10/14/17 Multivitamin [Honey Bears] 1 tab PO DAILY 08/30/17 10/14/17 SITagliptin [Januvia] 1 tab PO DAILY 08/30/17 10/14/17 Zolpidem [Ambien] 1 tab PO HS 08/30/17 10/14/17 metFORMIN [glucOPHAGE] 1,000 mg PO BID 08/30/17 10/14/17 Review of Systems - Physician Review All systems were reviewed & negative as marked: Yes - Review of Systems Constitutional: absent: Fevers, Night Sweats Respiratory: absent: SOB, Cough, Sputum, Wheezing Cardiovascular: absent: Chest Pain, Palpitations, Edema, Calf Pain, LOPEZ, Orthopnea, Syncope Gastrointestinal: Abdominal Pain (epigastric burning after food intake), Vomiting. absent: Constipation, Diarrhea Genitourinary Female: absent: Dysuria, Frequency, Hematuria Skin: absent: Rash Neurological: absent: Headache, Dizziness Physical Exam Vital Signs Reviewed: Yes Vital Signs Temp Pulse Resp BP Pulse Ox 10/14/17 15:52 72 18 164/82 H 99 10/14/17 14:00 68 18 162/69 H 100 10/14/17 13:30 65 18 168/75 H 100 10/14/17 12:39 98.3 F 67 18 178/81 H 100 10/14/17 12:24 98.3 F 67 17 178/81 H 99 Temperature: Afebrile Blood Pressure: Hypertensive Pulse: Regular Respiratory Rate: Normal Appearance: Positive for: Well-Appearing, Non-Toxic, Comfortable Pain Distress: None Mental Status: Positive for: Alert and Oriented X 3 - Systems Exam Head: Present: Atraumatic, Normocephalic Pupils: Present: PERRL Extroacular Muscles: Present: EOMI Conjunctiva: Present: Normal Mouth: Present: Moist Mucous Membranes Neck: Present: Normal Range of Motion Respiratory/Chest: Present: Clear to Auscultation, Good Air Exchange. No: Respiratory Distress, Accessory Muscle Use Cardiovascular: Present: Regular Rate and Rhythm, Normal S1, S2. No: Murmurs Abdomen: No: Tenderness, Distention, Peritoneal Signs Back: Present: Normal Inspection Upper Extremity: Present: Normal Inspection. No: Cyanosis, Edema Lower Extremity: Present: Normal Inspection. No: Edema Neurological: Present: GCS=15, CN II-XII Intact, Speech Normal Skin: Present: Warm, Dry, Normal Color. No: Rashes Psychiatric: Present: Alert, Oriented x 3, Normal Insight, Normal Concentration Medical Decision Making ED Course and Treatment: 10/14/17 12:50 Impression: A 82 year old female with epigastric burning with sour taste in mouth, related to food intake. Abdomen soft NT/ND. Plan: -- EKG -- Labs -- Maalox and pepcid -- Reassess and disposition Progress Notes: 10/14/17 14:18 Labs show baseline anemia. 10/14/17 15:29 Patient tolerating po and continues to have soft NT/ND abdomen. Patient has had similar presentation in the past and has GI follow-up. Patient requesting additional GI referral and medicine referral. Patient aware of need to follow- up for endoscopy - Lab Interpretations Lab Results: 10/14/17 13:25 10/14/17 13:25 Lab Results 10/14/17 13:26: POC Glucose (mg/dL) 194 H 10/14/17 13:25: Sodium 139, Potassium 5.2 H, Chloride 100, Carbon Dioxide 25, Anion Gap 19, BUN 14, Creatinine 1.3 H, Est GFR ( Amer) 48, Est GFR (Non- Af Amer) 39, Random Glucose 214 H, Calcium 10.3, Phosphorus 3.6, Magnesium 1.7, Total Bilirubin 0.4, AST 33, ALT 36, Alkaline Phosphatase 78, Troponin I < 0.01 , Total Protein 7.6, Albumin 4.2, Globulin 3.5, Albumin/Globulin Ratio 1.2, Lipase 117 10/14/17 13:25: WBC 7.3, RBC 3.50, Hgb 10.2 L, Hct 31.3 L, MCV 89.4, MCH 29.1, MCHC 32.6, RDW 14.2, Plt Count 223, MPV 10.0, Gran % 64.0, Lymph % (Auto) 26.4, [place] % (Auto) 5.3, Eos % (Auto) 3.8, Baso % (Auto) 0.5, Gran # 4.69, Lymph # ( Auto) 1.9, [place] # (Auto) 0.4, Eos # (Auto) 0.3, Baso # (Auto) 0.04 I have reviewed the lab results: Yes - Medication Orders Current Medication Orders: Discontinued Medications Al Hydrox/Mg Hydrox/Simethicone (Maalox Plus 30 Ml) 30 ml PO STAT STA Stop: 10/14/17 12:51 Last Admin: 10/14/17 13:21 Dose: 30 ml Famotidine 20 mg/ (Miscellaneous) 50 mls @ 100 mls/hr IVPB STAT STA Stop: 10/14/17 13:11 Last Admin: 10/14/17 13:30 Dose: Famotidine (Pepcid 20mg/50ml Premix) 20 mg in 50 mls @ 100 mls/hr IVPB STAT STA Stop: 10/14/17 13:11 Last Admin: 10/14/17 13:21 Dose: 100 mls/hr eMAR Start Stop Document 10/14/17 13:21 HI (Rec: 10/14/17 13:21 HI [id number]) Intravenous Solution Start Date 10/14/17 Start Time 13:21 - Scribe Statement The provider has reviewed the documentation as recorded by the Duyiblotus Aldridge Provider Scribe Attestation: All medical record entries made by the Scribe were at my direction and personally dictated by me. I have reviewed the chart and agree that the record accurately reflects my personal performance of the history, physical exam, medical decision making, and the department course for this patient. I have also personally directed, reviewed, and agree with the discharge instructions and disposition. Disposition/Present on Arrival - Present on Arrival Any Indicators Present on Arrival: No History of DVT/PE: No History of Uncontrolled Diabetes: Yes Urinary Catheter: No History of Decub. Ulcer: No History Surgical Site Infection Following: None - Disposition Have Diagnosis and Disposition been Completed?: Yes Diagnosis: Anemia, Hyperglycemia, Gastritis Disposition: HOME/ ROUTINE Disposition Time: 15:30 Patient Plan: Discharge Condition: GOOD Discharge Instructions (ExitCare): Gastritis, Hyperglycemia, Adult (DC), Diabetes and Diet Additional Instructions: Follow-up with GI for recurrent gastritis. Return to ED if condition worsens. Follow-up with PMD within 2 days. Follow-up with GI within 1 week Referrals: Nancy Penn MD [Staff Provider] - Follow up with primary Dimas Cabrera MD [Medical Doctor] - Follow up with primary Forms: [employer] (Swedish)
[2017-10-14 13:41] LABS: BASO # 0.04 K/mm3 (0.0-2.0); BASO % 0.5 % (0.0-3.0); EOS # 0.3 (0.0-0.7); EOS % 3.8 % (1.5-5.0); GRAN # 4.69 (1.4-6.5); HEMOGLOBIN 10.2 g/dL (12.0-16.0); LYMPH # 1.9 (1.2-3.4); LYMPH % 26.4 % (22.0-35.0); MEAN CELL VOLUME 89.4 fl (80.0-105.0); MEAN CORPUSCULAR HEMOGLOBIN 29.1 pg (25.0-35.0); MEAN CORPUSCULAR HGB CONC 32.6 g/dl (31.0-37.0); MONO # 0.4 (0.1-0.6); MONO % 5.3 % (1.0-6.0); RBC 3.5 10^6/uL (3.5-6.1); RED CELL DISTRIBUTION WIDTH 14.2 % (11.5-14.5); WHITE BLOOD COUNT 7.3 10^3/ul (4.5-11.0)
[2017-10-14 13:52] LABS: ALB/GLOB RATIO 1.2 (1.1-1.8); ALBUMIN 4.2 g/dL (3.0-4.8); ALT/SGPT 36 U/L (7-56); AST/SGOT 33 U/L (14-36); BLOOD UREA NITROGEN 14 mg/dL (7-21); CALCIUM 10.3 mg/dL (8.4-10.5); GFR AFRICAN-AMERICAN 48; GFR NON-AFRICAN AMERICAN 39; LIPASE 117 U/L (23-300)
[2017-10-14 14:08] LABS: TROPONIN I < 0.01 ng/mL
--- NOTE | 2017-10-14 14:16 | CARD ---
APPROVED REPORT EKG Measurement Heart [id number] <Conclusion> Sinus rhythm with 1st degree AV block Possible inferior infarct, age undetermined
[2017-10-14 15:54] VITALS: BP 164/82; PULSE 72; O2SAT 99
== END 2017-10-14 15:52 | disposition home or self-care (01) ==
LOC: ED 12:16
DX: E11.65 Type 2 diabetes mellitus with hyperglycemia (principal); K29.70 Gastritis, unspecified, without bleeding; D64.9 Anemia, unspecified; I12.9 Hypertensive chronic kidney disease with stage 1 through stage 4 chronic kidney disease, or unspecified chronic kidney disease; E11.22 Type 2 diabetes mellitus with diabetic chronic kidney disease; N18.3 Chronic kidney disease, stage 3 (moderate); Z87.891 Personal history of nicotine dependence

== ENCOUNTER 2018-02-07 08:47 | Inpatient (IN) | payer MEDICARE ==
[2018-02-07] MEDS ORDERED: MethylPREDNISolone Depo 40 mg/ml Inj IM STA (09:15)
--- NOTE | 2018-02-07 09:19 | ED PDOC ---
Arrival/HPI - General Chief Complaint: Back Pain Time Seen by Provider: 02/07/18 09:09 Historian: Patient - History of Present Illness Narrative History of Present Illness (Text): 02/07/18 09:15 Mirela Guadalupe is an 82 year old female, whose past medical history includes CAD, COPD, hypertension, diabetes, hypothyroidism, hypercholesterolemia, neuropathy, appendectomy, ovarian cyst, and back surgery for r/t herniated disc in 1988, who presents to the emergency department complaining of intermittent sharp, aching lower back pain for 1 month, worse last night. Patient notes she had intermittent pain after the back surgery that would go away, but the intermittent pain that began 1 month ago has not gone away. Patient states pain worsened last night and she could not sleep. Patient notes she saw her PMD ([employer]) who gave her Tramadol, with no significant relief. Patient notes she takes Ambien for sleep, Tramadol for pain, and does not know names of other medications. Patient denies drinking or smoking. Patient denies any fever, chills, chest pain, shortness of breath, nausea, vomiting, diarrhea, urinary symptoms, neck pain, headache, dizziness, or any other complaints. Time/Duration: < month (intermittent back pain) Symptom Onset: Gradual Symptom Course: Unchanged Quality: Aching, Other (Sharp) Activities at Onset: Light Context: Home Past Medical History - Provider Review Nursing Documentation Reviewed: Yes - Infectious Disease Hx of Infectious Diseases: None - Tetanus Immunization Tetanus Immunization: Unknown - Cardiac Hx Cardiac Disorders: Yes Hx Hypertension: Yes - Pulmonary Hx Respiratory Disorders: Yes Hx Chronic Obstructive Pulmonary Disease (COPD): Yes - Neurological Hx Neurological Disorder: Yes (NEUROPATHY) Other/Comment: hand tremors - HEENT Hx HEENT Disorder: No - Renal Hx Renal Disorder: Yes Hx Renal Failure: Yes (CKD III) - Endocrine/Metabolic Hx Endocrine Disorders: Yes Hx Diabetes Mellitus Type 2: Yes Hx Hypothyroidism: Yes - Hematological/Oncological Hx Blood Disorders: Yes Hx Anemia: Yes - Integumentary Hx Dermatological Disorder: No - Musculoskeletal/Rheumatological Hx Musculoskeletal Disorders: Yes Hx Falls: Yes - Gastrointestinal Hx Gastrointestinal Disorders: Yes (gastroparesis/ constipation) Hx Gastroesophageal Reflux: Yes - Genitourinary/Gynecological Hx Genitourinary Disorders: No Hx Reproductive Disorders: No - Psychiatric Hx Psychophysiologic Disorder: Yes Hx Anxiety: Yes Hx Depression: No Hx Emotional Abuse: No Hx Physical Abuse: No Hx Substance Use: No - Surgical History Hx Appendectomy: Yes Hx Orthopedic Surgery: Yes (R/T HERNIATED DISC) - Anesthesia Hx Anesthesia: Yes Hx Anesthesia Reactions: No Hx Malignant Hyperthermia: No - Suicidal Assessment Feels Threatened In Home Enviroment: No Family/Social History - Physician Review Nursing Documentation Reviewed: Yes Family/Social History: Unknown Family HX Smoking Status: Former Smoker Hx Alcohol Use: No Hx Substance Use: No Hx Substance Use Treatment: No Allergies/Home Meds Allergies/Adverse Reactions: Allergies naproxen Allergy (Verified 02/07/18 15:20) RASH Home Medications: Home Meds Medication Instructions Recorded Confirmed Aspirin [Aspirin Chewable] 81 mg PO DAILY 08/28/16 02/07/18 Levothyroxine [Synthroid] 100 mcg PO ACB 08/28/16 02/07/18 Omeprazole [Omeprazole] 40 mg PO DAILY 08/28/16 02/07/18 traMADol [Ultram] 50 mg PO TID PRN 01/25/17 02/07/18 ALPRAZolam [Xanax] 0.25 mg PO TID 08/30/17 02/07/18 Gabapentin [Neurontin] 300 mg PO TID 08/30/17 02/07/18 GlipiZIDE [Glucotrol] 10 mg PO BID 08/30/17 02/07/18 Metoprolol Tartrate [Lopressor] 25 mg PO BID 08/30/17 02/07/18 Mirtazapine [Remeron] 15 mg PO HS 08/30/17 02/07/18 Multivitamin [Honey Bears] 1 tab PO DAILY 08/30/17 02/07/18 SITagliptin [Januvia] 100 mg PO DAILY 08/30/17 02/07/18 Zolpidem [Ambien] 10 mg pe PO HS 08/30/17 02/07/18 metFORMIN [glucOPHAGE] 1,000 mg PO BID 08/30/17 02/07/18 ALPRAZolam [Xanax] 0.25 mg PO HS 02/07/18 02/07/18 Lisinopril [Zestril] 10 mg PO DAILY 02/07/18 02/07/18 Ranitidine HCl [Zantac] 150 mg PO DAILY 02/07/18 02/07/18 Review of Systems - Physician Review All systems were reviewed & negative as marked: Yes - Review of Systems Constitutional: Normal. absent: Fevers Eyes: Normal ENT: Normal Respiratory: Normal. absent: SOB, Cough Cardiovascular: Normal. absent: Chest Pain Gastrointestinal: Normal. absent: Diarrhea, Nausea, Vomiting Genitourinary Female: Normal Musculoskeletal: Back Pain (intermittent aching, sharp lower back pain for 1 month), Other (intermittent back pain radiating to right hip and right leg) Skin: Normal Neurological: Normal. absent: Headache, Dizziness, Gait Changes (ambulates normally with walker) Endocrine: Normal. absent: Diaphoresis Hemo/Lymphatic: Normal Psychiatric: Normal Physical Exam Vital Signs Reviewed: Yes Vital Signs Temp Pulse Resp BP Pulse Ox 02/07/18 14:00 98 F 72 20 180/88 H 98 02/07/18 13:40 98.4 F 70 18 144/74 96 02/07/18 11:21 98.5 F 62 20 132/65 96 02/07/18 09:04 98.9 F 92 H 18 179/74 H 95 Temperature: Afebrile Blood Pressure: Hypertensive (at 179/74) Pulse: Tachycardic (at 92) Respiratory Rate: Normal Appearance: Positive for: Well-Appearing, Non-Toxic Pain Distress: Mild Mental Status: Positive for: Alert and Oriented X 3 - Systems Exam Head: Present: Atraumatic, Normocephalic Pupils: Present: PERRL Extroacular Muscles: Present: EOMI Conjunctiva: Present: Normal Mouth: Present: Moist Mucous Membranes Respiratory/Chest: Present: Clear to Auscultation, Good Air Exchange. No: Respiratory Distress, Accessory Muscle Use Cardiovascular: Present: Regular Rate and Rhythm, Normal S1, S2. No: Murmurs Back: Present: Other (Some tenderness to muscles in lumbar area and pain at palpation of sciatic notch). No: Normal Inspection Upper Extremity: Present: Normal Inspection. No: Cyanosis, Edema Lower Extremity: Present: Normal Inspection. No: Edema Neurological: Present: GCS=15, CN II-XII Intact, Speech Normal, Motor Func Grossly Intact, Normal Sensory Function Skin: Present: Warm, Dry, Normal Color. No: Rashes Psychiatric: Present: Alert, Oriented x 3, Normal Insight, Normal Concentration Medical Decision Making ED Course and Treatment: 02/07/18 09:15 Impression: Mirela Guadalupe is an 82 year old female who presents to the emergency department for intermittent lower back pain for 1 month, radiating to right hip and right leg. Plan: -- CT Lumbar Spine w/o contrast -- DEPO-Medrol -- Toradol -- Reassess and disposition Prior Visits: Notes and results from previous visits were reviewed. Progress Notes: 02/07/18 12:[address] Jade, who has previously admitted patient many times before, for admission of patient. Dr. Jade is aware of and agrees with plan. Patient admitted for out of control diabetes and hyperglycemia. - Lab Interpretations Lab Results: 02/07/18 11:15 02/07/18 11:15 Lab Results 02/07/18 11:15: pO2 78 H, VBG pH 7.32, VBG pCO2 53.0, VBG HCO3 27.3, VBG Total CO2 28.9 H, VBG O2 Sat (Calc) 95.2 H, VBG Base Excess 0.3, VBG Potassium 6.1 H, Sodium 132.0, Chloride 98.0, Glucose 588 H*, Lactate 3.0 H, FiO2 21.0, Venous Blood Potassium 6.1 H 02/07/18 11:15: Sodium 133, Chloride 97 L, Potassium 5.9 H*, Carbon Dioxide 24, Anion Gap 18, BUN 13, Creatinine 1.3 H, Est GFR ( Amer) 48, Est GFR (Non- Af Amer) 39, Random Glucose 551 H* D, Calcium 8.7, Total Bilirubin 0.2, AST 30, ALT 26, Alkaline Phosphatase 91, Lactate Dehydrogenase 378, Total Creatine Kinase 31 L, Troponin I < 0.01, Total Protein 6.6, Albumin 3.7, Globulin 2.9, Albumin/Globulin Ratio 1.3, Lipase 71 02/07/18 11:15: PT 13.3 H, INR 1.15, APTT 27.5 02/07/18 11:15: WBC 6.5, RBC 3.29 L, Hgb 9.2 L, Hct 29.1 L, MCV 88.4, MCH 28.0, MCHC 31.6, RDW 14.1, Plt Count 208, MPV 10.1, Gran % 66.7, Lymph % (Auto) 24.7, [place] % (Auto) 4.9, Eos % (Auto) 3.5, Baso % (Auto) 0.2, Gran # 4.33, Lymph # ( Auto) 1.6, [place] # (Auto) 0.3, Eos # (Auto) 0.2, Baso # (Auto) 0.01 02/07/18 10:34: POC Glucose (mg/dL) 448 H* - RAD Interpretation Radiology Orders: 02/07/18 09:12 LUMBAR SPINE W/O CONTRAST [CT] Stat - Medication Orders Current Medication Orders: Alprazolam (Xanax) 0.25 mg PO HS DIANA PRN Reason: Protocol Stop: 02/14/18 22:01 Alprazolam (Xanax) 0.25 mg PO BID DIANA PRN Reason: Protocol Stop: 02/14/18 18:01 Aspirin (Aspirin Chewable) 81 mg PO DAILY DIANA Gabapentin (Neurontin) 300 mg PO TID DIANA PRN Reason: Protocol Glipizide (Glucotrol) 10 mg PO BID DIANA Heparin Sodium (Porcine) (Heparin) 5,000 units SC Q12 DIANA PRN Reason: Protocol Sodium Chloride (Sodium Chloride 0.9%) 1,000 mls @ 100 mls/hr IV .Q10H DIANA Last Admin: 02/07/18 13:37 Dose: 100 mls/hr eMAR Start Stop Document 02/07/18 13:37 LA (Rec: 02/07/18 13:37 ITA [id number]) Intravenous Solution Start Date 02/07/18 Start Time 13:37 Insulin Detemir (Levemir) 10 unit SC HS [facility] Insulin Human Regular (Humulin R Med) 0 units SC ACHS DIANA PRN Reason: Protocol Levothyroxine Sodium (Synthroid) 100 mcg PO ACB DIANA Lidocaine (Lidoderm) 1 ea TD DAILY DIANA Lisinopril (Zestril) 10 mg PO DAILY DIANA Metoprolol Tartrate (Lopressor) 25 mg PO BID DIANA Mirtazapine (Remeron) 15 mg PO HS [facility] Morphine Sulfate (Morphine) 1 mg IVP Q4H PRN PRN Reason: Pain, severe (8-10) Non-Formulary Medication (Multivitamin [Honey Bears]) 1 tab PO DAILY [facility] Pantoprazole Sodium (Protonix Ec Tab) 40 mg PO 0600 DIANA Zolpidem Tartrate (Ambien) 5 mg PO HS DIANA PRN Reason: Protocol Discontinued Medications Alprazolam (Xanax) 0.25 mg PO TID DIANA PRN Reason: Protocol Stop: 02/14/18 18:01 Alprazolam (Xanax) 0.25 mg PO STAT STA PRN Reason: Protocol Stop: 02/07/18 15:07 Last Admin: 02/07/18 15:21 Dose: 0.25 mg Behavioural Document 02/07/18 15:21 [facility] [place] (Rec: 02/07/18 15:22 [id number][facility] Maintenance Maintenance Dose No Nonmedicinal Nonmedicinal Interventions See nurse's notes Comment pre MRI Behavior Behavior for Medication: Anxiety Hydralazine HCl (Apresoline) 5 mg IVP ONCE ONE Stop: 02/07/18 15:09 Last Admin: 02/07/18 15:22 Dose: 5 mg IVP Administration Document 02/07/18 15:22 [facility] [place] (Rec: 02/07/18 15:22 [id number]) Charges for Administration # of IVP Administrations 1 MAR Pulse and Blood Pressure Document 02/07/18 15:22 [facility] [place] (Rec: 02/07/18 15:22 [id number]) Blood Pressure Blood Pressure (100/60-150/90) 180/88 Sodium Chloride (Sodium Chloride 0.9%) 1,000 mls @ 999 mls/hr IV .Q1H1M STA Stop: 02/07/18 12:07 Last Admin: 02/07/18 11:17 Dose: 999 mls/hr eMAR Start Stop Document 02/07/18 11:17 GMD (Rec: 02/07/18 11:17 GMD [id number]) Intravenous Solution Start Date 02/07/18 Start Time 11:17 End Date 02/07/18 End time 12:18 Total Infusion Time 61 Sodium Chloride (Sodium Chloride 0.9%) 1,000 mls @ 999 mls/hr IV .Q1H1M STA Stop: 02/07/18 12:07 Last Admin: 02/07/18 12:04 Dose: 999 mls/hr eMAR Start Stop Document 02/07/18 12:04 LA (Rec: 02/07/18 12:04 LA [id number]) Intravenous Solution Start Date 02/07/18 Start Time 12:04 End Date 02/07/18 End time 13:05 Total Infusion Time 61 Calcium Gluconate 1,000 mg/ (Sodium Chloride) 110 mls @ 110 mls/hr IVPB ONCE ONE Stop: 02/07/18 13:40 Last Admin: 02/07/18 12:53 Dose: 110 mls/hr eMAR Start Stop Document 02/07/18 12:53 LA (Rec: 02/07/18 12:54 LA [id number]) Intravenous Solution Start Date 02/07/18 Start Time 12:53 End Date 02/07/18 End time 13:53 Total Infusion Time 60 Insulin Human Regular (Humulin R) 3 units SC STAT STA Stop: 02/07/18 12:42 Last Admin: 02/07/18 12:55 Dose: 3 units MAR Blood Glucose Document 02/07/18 12:55 LA (Rec: 02/07/18 12:55 LA [id number]) Blood Glucose Finger Stick Blood Glucose (70-120) 340 Subcutaneous Administrations Document 02/07/18 12:55 LA (Rec: 02/07/18 12:55 LA [id number]) Injection Site MAR Injection Site Left Deltoid Charges for Administration # of Subcutaneous Administrations 1 Ketorolac Tromethamine (Toradol) 15 mg IM STAT STA Stop: 02/07/18 09:16 Last Admin: 02/07/18 09:31 Dose: 15 mg MAR Pain Assessment Document 02/07/18 09:31 GMD (Rec: 02/07/18 09:31 GMD [id number]) Pain Reassessment Is this a pain reassessment? No Presence of Pain Presence of Pain Yes Location Left, Right or Bilateral Right Upper or Lower Lower Pain Location Body Site Back IM Administration Charges Document 02/07/18 09:31 GMD (Rec: 02/07/18 09:31 GMD [id number]) Injection Site MAR Injection Site Left Deltoid Charges for Administration # of IM Administrations 1 Re-Assess: CINDA Pain Assessment Document 02/07/18 10:31 LA (Rec: 02/07/18 12:30 LA [id number]) Pain Reassessment Is this a pain reassessment? Yes Sleep Is patient sleeping during reassessment? No Presence of Pain Presence of Pain Yes Pain Scale Used Pain Scale Used Numeric Location Pain Location Body Site Back Description Description Intermittent Intensity of Pain at present 4 Methylprednisolone Acetate (Depo-Medrol) 40 mg IM STAT STA Stop: 02/07/18 09:16 Last Admin: 02/07/18 09:31 Dose: 40 mg IM Administration Charges Document 02/07/18 09:31 GMD (Rec: 02/07/18 09:31 GMD [id number]) Injection Site MAR Injection Site Right Deltoid Charges for Administration # of IM Administrations 1 Morphine Sulfate (Morphine) 1 mg IM Q4H PRN PRN Reason: Pain, severe (8-10) Sodium Bicarbonate (Sodium Bicarbonate 8.4% (50 Meq) Syringe) 50 meq IVP ONCE ONE Stop: 02/07/18 12:42 Last Admin: 02/07/18 13:06 Dose: 50 meq IVP Administration Document 02/07/18 13:06 LA (Rec: 02/07/18 13:06 LA [id number]) Charges for Administration # of IVP Administrations 1 - Scribe Statement The provider has reviewed the documentation as recorded by the Scribe Lisa Mominh All medical record entries made by the Scribe were at my direction and personally dictated by me. I have reviewed the chart and agree that the record accurately reflects my personal performance of the history, physical exam, medical decision making, and the department course for this patient. I have also personally directed, reviewed, and agree with the discharge instructions and disposition. Disposition/Present on Arrival - Present on Arrival Any Indicators Present on Arrival: Yes History of DVT/PE: No History of Uncontrolled Diabetes: Yes Urinary Catheter: No History of Decub. Ulcer: No History Surgical Site Infection Following: None - Disposition Have Diagnosis and Disposition been Completed?: Yes Diagnosis: Uncontrolled diabetes mellitus, Hyperkalemia Disposition: HOSPITALIZED Disposition Time: 12:00 Patient Plan: Admission Condition: FAIR
--- NOTE | 2018-02-07 10:10 | CT ---
Date of service: 02/07/2018 PROCEDURE: CT Lumbar Spine without contrast HISTORY: Right Sided Radiculopathy L4-5 COMPARISON: None available. TECHNIQUE: Axial computed tomography images were obtained of the lumbar spine without the use of intravenous contrast. Coronal and sagittal reformatted images were created and reviewed. Radiation dose: Total exam DLP = 384 mGy-cm. This CT exam was performed using one or more of the following dose reduction techniques: Automated exposure control, adjustment of the mA and/or kV according to patient size, and/or use of iterative reconstruction technique. FINDINGS: VERTEBRAE: Unremarkable. No fracture. Normal alignment. DISCS/SPINAL CANAL/NEURAL FORAMINA: L1-2: Unremarkable. L2-3: Unremarkable. L3-4: Mild disc degeneration and disc bulging L4-5: There is severe disc degeneration. There is a Schmorl's node on the left that is filled with air. There is mild foraminal stenosis L5-S1: There is a right-sided hemilaminectomy. PARASPINAL SOFT TISSUES: Unremarkable. OTHER FINDINGS: None. IMPRESSION: Multilevel degenerative changes with no significant central stenosis or focal herniation. No evidence of vertebral compression fracture
[2018-02-07] MEDS ORDERED: Sodium Chloride 0.9% 1,000 ML IV STA ×2 (11:07)
[2018-02-07 11:26] LABS: VENOUS BLOOD GAS BASE EXCESS 0.3 mmol/L (0.0-2.0); VENOUS BLOOD GAS PO2 78 mm/Hg (30-55); VENOUS BLOOD PH 7.32 (7.32-7.43)
[2018-02-07 11:28] LABS: BASO # 0.01 K/mm3 (0.0-2.0); BASO % 0.2 % (0.0-3.0); EOS # 0.2 (0.0-0.7); EOS % 3.5 % (1.5-5.0); GRAN # 4.33 (1.4-6.5); GRAN % 66.7 % (50.0-68.0); HEMOGLOBIN 9.2 g/dL (12.0-16.0); LYMPH # 1.6 (1.2-3.4); LYMPH % 24.7 % (22.0-35.0); MEAN CELL VOLUME 88.4 fl (80.0-105.0); MEAN CORPUSCULAR HGB CONC 31.6 g/dl (31.0-37.0); MEAN PLATELET VOLUME 10.1 fl (7.0-11.0); MONO # 0.3 (0.1-0.6); MONO % 4.9 % (1.0-6.0); RBC 3.29 10^6/uL (3.5-6.1); RED CELL DISTRIBUTION WIDTH 14.1 % (11.5-14.5); WHITE BLOOD COUNT 6.5 10^3/ul (4.5-11.0)
[2018-02-07 11:37] LABS: INR 1.15; PROTHROMBIN TIME 13.3 SECONDS (9.4-12.5)
[2018-02-07 11:40] LABS: PARTIAL THROMBOPLASTIN TIME 27.5 Seconds (25.1-36.5)
[2018-02-07 11:48] LABS: TROPONIN I < 0.01 ng/mL
[2018-02-07 11:59] LABS: ALB/GLOB RATIO 1.3 (1.1-1.8); ALBUMIN 3.7 g/dL (3.0-4.8); ALT/SGPT 26 U/L (7-56); AST/SGOT 30 U/L (14-36); BLOOD UREA NITROGEN 13 mg/dL (7-21); CALCIUM 8.7 mg/dL (8.4-10.5); GFR AFRICAN-AMERICAN 48; GFR NON-AFRICAN AMERICAN 39; LIPASE 71 U/L (23-300)
--- NOTE | 2018-02-07 12:36 | CP.PCM.HP ---
History of Present Illness - History of Present Illness History of Present Illness: PGY-[address] Jade Admitted: intractable back pain with radiation; out of control diabetes and hyperglycemia. Ms Guadalupe, 82F, PMHx of CAD/HTN/HLD, COPD, DM and diabetic neuropathy, herniated discs, CKD3, and back surgery for r/t herniated disc in 1988, C/O intermittent sharp, aching lower back pain for 1 month, worse last night. Patient notes she had intermittent pain after the back surgery more than 10 years ago that would go away, but the intermittent pain that began 1 month ago has not gone away. The pain started lower back, radiating to R hip, R thigh, R leg, and R dorsal foot. The pain 8-9/10 in the morning. Then she take tramadol which only brings mild relief to 6/10. Patient states pain worsened at night and just waking up and she could not sleep. For her diabetes, she could not afford januvia and did not take it in 2 days. She prepare her own food which sometimes rich in carbohydrates. She enjoys her candies too, some of which are sugar free. ROS - denies any trauma, falls, incontinent, fever, chills, chest pain, shortness of breath, nausea, vomiting, diarrhea, urinary symptoms, neck pain, headache, dizziness, or any other complaints. PMH HTN/HLD DM 2, A1C___7.8 (3 years ago)___, diabetic neuropathy, gastroparesis/ constipation CKD 3 Anemia GERD herniated discs anxiety hypothyroidism, Ovarian cyst Hx falls (last fall 4 years ago) PSH appendectomy back surgery for r/t herniated disc in 1988 x 2 FH - brother [place], mom [place], dad - etoh/tobacco abuse, stomach cancer SH - live alone, [id number] live upstairs, who help sort her meds. denies ever drink, smoke, drugs All Naproxen-rash Med: reviewed PMD; Dr Clif Tolentino Present on Admission - Present on Admission Any Indicators Present on Admission: Yes History of Uncontrolled Diabetes: Yes Past Patient History - Infectious Disease Hx of Infectious Diseases: None - Tetanus Immunizations Tetanus Immunization: Unknown - Past Social History Smoking Status: Former Smoker - CARDIAC Hx Cardiac Disorders: Yes Hx Hypertension: Yes - PULMONARY Hx Respiratory Disorders: Yes Hx Chronic Obstructive Pulmonary Disease (COPD): Yes - NEUROLOGICAL Hx Neurological Disorder: Yes (NEUROPATHY) Other/Comment: hand tremors - HEENT Hx HEENT Problems: No - RENAL Hx Chronic Kidney Disease: Yes Hx Renal Failure: Yes (CKD III) - ENDOCRINE/METABOLIC Hx Endocrine Disorders: Yes Hx Diabetes Mellitus Type 2: Yes Hx Hypothyroidism: Yes - HEMATOLOGICAL/ONCOLOGICAL Hx Blood Disorders: Yes Hx Anemia: Yes - INTEGUMENTARY Hx Dermatological Problems: No - MUSCULOSKELETAL/RHEUMATOLOGICAL Hx Musculoskeletal Disorders: Yes Hx Falls: Yes - GASTROINTESTINAL Hx Gastrointestinal Disorders: Yes (gastroparesis/ constipation) Hx Gastroesophageal Reflux: Yes - GENITOURINARY/GYNECOLOGICAL Hx Genitourinary Disorders: No Hx Reproductive Disorders: No - PSYCHIATRIC Hx Psychophysiologic Disorder: Yes Hx Anxiety: Yes Hx Depression: No Hx Emotional Abuse: No Hx Physical Abuse: No Hx Substance Use: No - SURGICAL HISTORY Hx Appendectomy: Yes Hx Orthopedic Surgery: Yes (R/T HERNIATED DISC) - ANESTHESIA Hx Anesthesia: Yes Hx Anesthesia Reactions: No Hx Malignant Hyperthermia: No Meds Allergies/Adverse Reactions: Allergies Allergy/AdvReac Type Severity Reaction Status Date / Time naproxen Allergy RASH Verified 02/07/18 15:20 Physical Exam - Constitutional Appears: No Acute Distress - Head Exam Head Exam: ATRAUMATIC, NORMAL INSPECTION, NORMOCEPHALIC - Eye Exam Eye Exam: EOMI, Normal appearance, PERRL. absent: Scleral icterus Pupil Exam: NORMAL ACCOMODATION - ENT Exam ENT Exam: Mucous Membranes Moist - Neck Exam Additional comments: supple - Respiratory Exam Respiratory Exam: Clear to Auscultation Bilateral. absent: Rales, Rhonchi, Wheezes - Cardiovascular Exam Cardiovascular Exam: REGULAR RHYTHM, +S1, +S2 - GI/Abdominal Exam GI & Abdominal Exam: Normal Bowel Sounds, Soft. absent: Rigid, Tenderness - Back Exam Back exam: vertebral tenderness (L4-5; Tenderness R hip, thigh, leg, foot.). absent: CVA tenderness (L), CVA tenderness (R), paraspinal tenderness - Neurological Exam Neurological exam: Alert, Oriented x3 Additional comments: No saddle anesthesia No B&B incontinent - Psychiatric Exam Psychiatric exam: Normal Affect, Normal Mood - Skin Skin Exam: Dry, Warm Results - Vital Signs Recent Vital Signs: Last Vital Signs Temp 98.5 F 02/07/18 11:21 Pulse 62 02/07/18 11:21 Resp 20 02/07/18 11:21 BP 132/65 02/07/18 11:21 Pulse Ox 96 02/07/18 11:21 - Labs Result Diagrams: 02/07/18 11:15 02/07/18 11:15 Assessment & Plan - Assessment and Plan (Free Text) Plan: Ms Dietz is admitted for intractable back pain with radiation and HHS Intractable hip/lower back pain. Had ruled out obstruction/stenosis from CT lumbar. Need to r/o entrapment - f/u MRI hip and lumbar spine to r/o entrapment - Gabapentin. Lidoderm patch. morphine PRN. Physical therapy - Add occupation therapy for essential tremors of hands HHS, hyperglycemia 500s, uncontrolled DM, likely due to food non-compliance, skip meds due to cost, r/o ischemia/infection - Follow EKG, culture to r/o ischemic or infectious causes - Levemir 10 HS, ISSS-med, A1C, Diabetic education/recipes - Continue glipizide 10 BID. Hold Januvia/metfomin - Due to elevated Cre, elevated lactate, and cost, consider switching hypoglycemic regimen and off metformin Hyperkalemia at 5.9, Asymptomatic - Current insulin regimen suffice. Will recheck tomorrow. Lactate elevated at 3, likely from hip/back/muscle problem/may be lactic acidosis from metformin GERD - Use protonix. Hold home med (ranitidine and omeprazole) HTN - Continue lisinopril, metoprolol, ASA, for CV risk reduction. hydralazine IV x 1 for SBP > 180. hypothyrodism - continue Synthroid Anxiety - During the day, Decreased Xanax from home TID to BID; observe mood; During the night, Xanax/Ambien/Remeron HS Anemia likely from CKD - Creatinine 1.3 - continue to trend, follow Fe study s/r/d/w Dr Jade
[2018-02-07] MEDS ORDERED: Sodium Bicarbonate (8.4%) 50 Meq Syringe IVP ONE ×2 (12:41→13:06)
[2018-02-07] MEDS ORDERED: Insulin Regular 1 UNITS/0.01 ML ML SC STA (12:41)
[2018-02-07] MEDS: Sodium Chloride 0.9% 1,000 ML IV SCH (13:37)
[2018-02-07 14:07] LABS: URINE BILIRUBIN NEGATIVE (NEGATIVE); URINE BLOOD NEGATIVE (NEGATIVE); URINE GLUCOSE (UA) >=1000 mg/dL (NEGATIVE); URINE LEUKOCYTE ESTERASE TRACE Leu/uL (NEGATIVE); URINE PROTEIN TRACE mg/dL (<30 mg/dL); URINE UROBILINOGEN 0.2 E.U./dL (<1 E.U./dL)
[2018-02-07 14:09] LABS: URINE APPEARANCE SL CLOUDY (CLEAR); URINE COLOR YELLOW (YELLOW)
[2018-02-07 14:10] LABS: URINE RBC NEGATIVE /hpf (0-2)
[2018-02-07] MEDS ORDERED: Morphine 2 mg/ml ISec IM PRN (15:07)
[2018-02-07 16:00] LABS: VENOUS BLOOD GAS BASE EXCESS 0.6 mmol/L (0.0-2.0); VENOUS BLOOD GAS PO2 49 mm/Hg (30-55); VENOUS BLOOD PH 7.33 (7.32-7.43)
[2018-02-07] MEDS: Insulin Reg-MEDIUM-Coverage SC SCH (17:13)
[2018-02-07] MEDS: Lidocaine 5% Patch TD SCH (17:14)
--- NOTE | 2018-02-07 18:04 | MRI ---
EXAM: MR Lumbar Spine Without Intravenous Contrast CLINICAL HISTORY: 82 years old, female; Pain; back pain and lumbago with sciatica; Right; Additional info: R/O nerve entrapment TECHNIQUE: Magnetic resonance images of the lumbar spine without intravenous contrast in multiple planes. COMPARISON: MR - SPINAL LUMBAR W/WO FER 2015-06-20 12:28 FINDINGS: Vertebrae: See below. Spinal cord: Unremarkable. Normal signal. Soft tissues: Unremarkable. DISCS/SPINAL CANAL/NEURAL FORAMINA: L1-L2: Unremarkable. No significant disc disease. No stenosis. L2-L3: Unremarkable. No significant disc disease. No stenosis. L3-L4: There is mild disc bulging. Disc bulging extends into both neural foramen causing mild bilateral neural foraminal narrowing, right worse than left. There is facet arthropathy and ligamentum flavum hypertrophy. There is mild transverse spinal canal stenosis. L4-L5: There is disc space narrowing and desiccation. There are moderate degenerative end plate changes at this level. There is moderate disc bulging. Disc bulging extends into both neural foramen causing moderate bilateral neural foraminal narrowing. There is evidence of prior laminectomy at this level, please correlate with surgical history. L5-S1: Unremarkable. No significant disc disease. No stenosis. IMPRESSION: 1. Mild degenerative changes at the L3/4 and L4/5 levels as described above. 2. Postsurgical changes as described above.
[2018-02-07 19:50] VITALS: BMI 20.5
[2018-02-07] MEDS ORDERED: Pneumococcal 23-Valent Vaccine IM ONE (19:50)
[2018-02-07] MEDS ORDERED: Insulin Detemir 100 units/ml Vial (Levemir) SC SCH (22:00)
[2018-02-08] MEDS: Morphine 2 mg/ml ISec IVP PRN ×3 (01:45→16:35)
[2018-02-08] MEDS: Insulin Reg-MEDIUM-Coverage SC SCH ×5 (03:37→21:55)
[2018-02-08] MEDS: Sodium Chloride 0.9% 1,000 ML IV SCH ×2 (04:28→17:23)
[2018-02-08] MEDS: Pantoprazole 40 mg EC Tab PO SCH (06:31)
[2018-02-08] MEDS: Levothyroxine 100 MCG TAB PO SCH (06:31)
[2018-02-08 07:51] LABS: BASO # 0.02 K/mm3 (0.0-2.0); BASO % 0.3 % (0.0-3.0); EOS # 0.2 (0.0-0.7); EOS % 2.4 % (1.5-5.0); GRAN # 4.65 (1.4-6.5); GRAN % 65.5 % (50.0-68.0); LYMPH % 27.7 % (22.0-35.0); MEAN CELL VOLUME 86.5 fl (80.0-105.0); MEAN CORPUSCULAR HEMOGLOBIN 27.6 pg (25.0-35.0); MEAN CORPUSCULAR HGB CONC 31.9 g/dl (31.0-37.0); MEAN PLATELET VOLUME 10.2 fl (7.0-11.0); MONO # 0.3 (0.1-0.6); MONO % 4.1 % (1.0-6.0); RBC 3.62 10^6/uL (3.5-6.1); RED CELL DISTRIBUTION WIDTH 14.1 % (11.5-14.5); WHITE BLOOD COUNT 7.1 10^3/ul (4.5-11.0)
[2018-02-08 07:57] LABS: IRON 40 ug/dL (45-180)
[2018-02-08 08:06] LABS: % IRON SATURATION 10 % (20-55); TOTAL IRON BINDING CAPACITY 380 ug/dL (265-497)
[2018-02-08 08:15] LABS: ALB/GLOB RATIO 1.2 (1.1-1.8); ALT/SGPT 29 U/L (7-56); AST/SGOT 30 U/L (14-36); BLOOD UREA NITROGEN 10 mg/dL (7-21); CALCIUM 9.2 mg/dL (8.4-10.5); GFR AFRICAN-AMERICAN > 60; GFR NON-AFRICAN AMERICAN 53
--- NOTE | 2018-02-08 09:07 | CARD ---
APPROVED REPORT Date of service: 02/07/2018 EKG Measurement Heart [id number] <Conclusion> Sinus rhythm with 1st degree AV block Otherwise normal ECG
[2018-02-08] MEDS: POLYETHYLENE GLYCOL 3350 17 GM/Dose PACKET PO SCH ×2 (09:28→17:24)
[2018-02-08] MEDS: Lidocaine 5% Patch TD SCH (09:29)
[2018-02-08] MEDS: MULTIVITAMIN PO SCH (11:01)
--- NOTE | 2018-02-08 19:19 | CON ---
Copied To: Nita Arguelles MD Attending MD: Nita Arguelles MD DATE: 02/08/2018 ENDOCRINOLOGY CONSULT LOCATION: In room 577. HISTORY OF PRESENT ILLNESS: This is an 82-year-old female with known history of type 2 diabetes and hypertension with severe lower back pain and arthralgias, presenting here with intractable lower back pain and radiculopathy refractory to outpatient pain management and is now being referred for diabetic evaluation because of supervening hyperglycemic accelerations as noted thereof. PAST MEDICAL HISTORY: As mentioned above, history of type 2 diabetes, currently on a combination of metformin given as 1 g b.i.d. with glipizide at 10 mg b.i.d. and Januvia at 100 mg daily, which has not been taken lately because of the formidable expense of the medications. History of hypertension and dyslipidemia, history of coronary artery disease and peripheral arterial disease and vasculopathy. History of chronic obstructive lung disease and had previous admissions for acute exacerbations of the same. History of diabetic retinopathy and polyneuropathy as noted. She also has significant history of lumbar disk disease and multiple back surgeries for herniated disks and yet has continued to have persistent lower back pain over the last few months with radicular pain radiating to her hip and right lower leg area. History of diabetic gastroparesis as noted with habitual constipation. History of hypothyroidism, on levothyroxine replacement therapy. History of generalized anxiety and insomnia with disruptive sleep patterns. History of chronic anemia as noted. FAMILY HISTORY: Positive for diabetes and hypertension. SOCIAL HISTORY: The patient lives alone, but has supportive family, otherwise no known substance use. REVIEW OF SYSTEMS: As mentioned above, admits to generalized body weakness with easy fatigability and tiredness and worsening dizziness and lightheadedness, especially in the last few days prior to admission with bifrontal headaches and disrupted sleep patterns and insomnia as noted. No chest pains or palpitations or PNDs, but admits to episodic shortness of breath especially on exertion. Her oral intakes have been variable with nausea, dyspepsia and vague upper abdominal pains with habitual constipation. She also admits to occasional bouts of nocturia and polyuria as noted. PHYSICAL EXAMINATION: GENERAL: This is an average-built female, in no apparent distress. VITAL SIGNS: Blood pressure of 150/90; pulse of 80 beats per minute, regular; temperature 98; respirations 20; height is 5 feet 4 inches; weight is 120 pounds. HEENT: Head normocephalic. Eyes anicteric with pink conjunctivae. Funduscopy not possible at this time. Ears, nose and throat otherwise normal. NECK: Supple. Thyroid gland is normal in size. No carotid bruits or cervical adenopathy. CARDIOPULMONARY: With an adynamic precordium. S1, S2 is rapid and regular. LUNGS: Clear to auscultation. ABDOMEN: Flat, soft with positive bowel sounds. EXTREMITIES: No peripheral edema. Pulses are +2 bilaterally. LABORATORY DATA: Her initial chemistries actually showed a BUN of 13, sodium 133, potassium 5.9, chloride 97, CO2 of 24, glucose 551 and creatinine 1.3. The latest glucose levels today are 230-297 mg/dL. ASSESSMENT: This is a an 82-year-old female with uncontrolled and decompensated type 2 insulin-requiring diabetes, presenting here with severe intractable lower back pain with radiculopathy and also concomitant uncontrolled type 2 insulin-requiring diabetes with recent hyperglycemic accelerations despite a combination of oral hypoglycemic therapy given in triple combination as noted. She clearly is insulin requiring at this time, but because of her multiple medical conditions, the patient is reluctant to go home on insulin at this time and also because of the expensive cost of the medications as noted. PLAN OF MANAGEMENT: As discussed with the patient and the staff, we will at least start her on basal insulin and titrate incrementally as indicated to optimize metabolic control. We will add glipizide given as 10 mg b.i.d. and Januvia at 100 mg once daily as ordered. However, we will hold off on the metformin especially with her advanced age and slight renal compromise at this time. We will obtain serial chemistries and supplement accordingly as needed. We will also repeat the thyroid studies and adjust her dose regimen accordingly. We will continue the IV hydration as given and supplement accordingly as needed. We will follow. Nita Arguelles MD
[2018-02-08] MEDS: Morphine 4 mg/ml ISec IVP PRN (21:53)
[2018-02-08] MEDS: Insulin Detemir 100 units/ml Vial (Levemir) SC SCH (21:56)
--- NOTE | 2018-02-09 03:37 | PN ---
Copied To: Jon Jade MD Attending MD: Jon Jade MD DATE: 02/08/2018 SUBJECTIVE: The patient has no complaints of any chest pain. No shortness of breath. No headaches. PHYSICAL EXAMINATION: VITAL SIGNS: Temperature is 98.3, pulse of 68, blood pressure is 154/83, respirations 18, O2 saturation 96%. GENERAL: The patient is lying in bed, flat, comfortable. HEENT: No oral lesion. Anicteric sclerae. Moist mucosa. NECK: No JVD, adenopathy, or thyromegaly. CARDIOVASCULAR: S1 and S2, regular. No murmurs, rubs, or gallops. LUNGS: Clear to auscultation bilaterally. No wheeze, rales, or rhonchi. ABDOMEN: Bowel sounds are positive, soft, nontender and nondistended. EXTREMITIES: No cyanosis, clubbing or edema. ASSESSMENT: 1. Diabetes type 2, uncontrolled. 2. Hyperkalemia. 3. Acute on chronic back pain. 4. Hypothyroidism. 5. Anxiety. 6. Hypertension. 7. Spinal stenosis. 8. Degenerative joint disease of back. PLAN: The patient is going to be on aspirin. She is going to continue with glipizide for her diabetes. She is on heparin for DVT prophylaxis. The patient is on Januvia for her diabetes as well. She is on Levemir. She is on metoprolol. She is going to be on morphine for pain. She is receiving Protonix. She is going to continue with Remeron. She is on IV fluids. I will discontinue the patient's IV fluid at this point. The patient is on Xanax as needed. She is on Synthroid for hypothyroidism. She had a lumbar spine MRI that showed mild degenerative changes at L3-L4 and L4-L5. The patient was seen by Dr. Arguelles to help with diabetes management. The patient is going to have a difficult time using a pen because of her poor vision from her diabetes and her retinopathy, and also she has arthritis in her hands as well as tremor. We will wait for the input from Dr. Luo regarding this. Jon Jade MD [facility] # [id number]
[2018-02-09] MEDS: Pantoprazole 40 mg EC Tab PO SCH (06:50)
[2018-02-09] MEDS: Levothyroxine 100 MCG TAB PO SCH (06:50)
[2018-02-09 07:14] LABS: BASO # 0.03 K/mm3 (0.0-2.0); BASO % 0.5 % (0.0-3.0); EOS # 0.3 (0.0-0.7); EOS % 4.4 % (1.5-5.0); GRAN # 3.19 (1.4-6.5); GRAN % 55.6 % (50.0-68.0); LYMPH # 1.9 (1.2-3.4); LYMPH % 33.9 % (22.0-35.0); MEAN CELL VOLUME 87.2 fl (80.0-105.0); MEAN CORPUSCULAR HEMOGLOBIN 27.5 pg (25.0-35.0); MEAN CORPUSCULAR HGB CONC 31.6 g/dl (31.0-37.0); MEAN PLATELET VOLUME 10.1 fl (7.0-11.0); MONO # 0.3 (0.1-0.6); MONO % 5.6 % (1.0-6.0); RBC 3.27 10^6/uL (3.5-6.1); RED CELL DISTRIBUTION WIDTH 14.4 % (11.5-14.5); WHITE BLOOD COUNT 5.7 10^3/ul (4.5-11.0)
[2018-02-09] MEDS: Morphine 4 mg/ml ISec IVP PRN ×3 (07:15→20:54)
[2018-02-09 07:40] LABS: T4 7.6 ug/dL (5.5-11.0)
[2018-02-09 07:44] LABS: ALB/GLOB RATIO 1.1 (1.1-1.8); ALBUMIN 3.4 g/dL (3.0-4.8); ALT/SGPT 29 U/L (7-56); AST/SGOT 27 U/L (14-36); BLOOD UREA NITROGEN 11 mg/dL (7-21); CALCIUM 8.8 mg/dL (8.4-10.5); GFR AFRICAN-AMERICAN > 60; GFR NON-AFRICAN AMERICAN 53
[2018-02-09] MEDS: Insulin Reg-MEDIUM-Coverage SC SCH ×4 (07:53→23:03)
[2018-02-09] MEDS: Lidocaine 5% Patch TD SCH (09:19)
[2018-02-09] MEDS: POLYETHYLENE GLYCOL 3350 17 GM/Dose PACKET PO SCH ×2 (09:20→17:27)
[2018-02-09] MEDS: MULTIVITAMIN PO SCH (10:10)
--- NOTE | 2018-02-09 21:03 | PN ---
Copied To: Jon Jade MD Attending MD: Jon Jade MD DATE: 02/09/2018 SUBJECTIVE: The patient has no complaints of any chest pain or shortness of breath. No headaches or dizziness. PHYSICAL EXAMINATION VITAL SIGNS: Temperature is 98.3, pulse of 61, blood pressure is 174/67, respirations 18. GENERAL: The patient is lying in bed, flat, comfortable. HEENT: No oral lesion. Anicteric sclerae. Moist mucosa. NECK: No JVD, adenopathy, or thyromegaly. CARDIOVASCULAR: S1 and S2, regular. No murmurs, rubs, or gallops. LUNGS: Clear to auscultation bilaterally. No wheeze, rales, or rhonchi. ABDOMEN: Bowel sounds are positive, soft, nontender and nondistended. EXTREMITIES: No cyanosis, clubbing or edema. LABORATORY DATA: White count of 5.7, hemoglobin is 9. Creatinine is 1. ASSESSMENT: 1. Diabetes type 2, uncontrolled. 2. Hyperkalemia, improved. 3. Acute on chronic back pain secondary to degenerative joint disease. 4. Hypothyroidism. 5. Anxiety. 6. Hypertension. 7. Spinal stenosis. 8. Iron deficiency anemia. PLAN: The patient is currently on Ambien for sleep. She is receiving aspirin daily. She is on Glucotrol for her dyslipidemia. She is on heparin for DVT prophylaxis. The patient is on Januvia for her diabetes. She is also receiving metoprolol. She is on Neurontin for her neuropathy. The patient is on Xanax. She is on Levemir units in the evening. She has iron deficiency anemia. The patient will get IV iron. Her hemoglobin A1c is uncontrolled at 12.8. Jon Jade MD
[2018-02-09] MEDS ORDERED: Morphine 2 mg/ml ISec IVP PRN (21:52)
[2018-02-09] MEDS: Insulin Detemir 100 units/ml Vial (Levemir) SC SCH (23:05)
--- NOTE | 2018-02-10 04:30 | PN ---
Copied To: Nita Arguelles MD Attending MD: Nita Arguelles MD DATE: 02/09/2018 ENDOCRINOLOGY FOLLOWUP NOTE LOCATION: Room 577. SUBJECTIVE: This is an 82-year-old female with recent uncontrolled type 2 insulin-requiring diabetes, presenting here with marked hyperglycemic accelerations with concomitant severe intractable lower back pain and radiculopathy refractory to outpatient pain management and is now also being followed closely for metabolic management. Her oral intake remains variable as per the nursing staff and her glucose values are fluctuating, but improved as noted. LABORATORY DATA: Today's glucose levels have ranged from 136-145 and 344 mg/dL. Her latest chemistry showed a BUN of 11, sodium 144, potassium 4.3, chloride 108, CO2 of 26, glucose 127 and creatinine 1. Her thyroid study showed a T4 of 7.6 with a TSH of 0.64. ASSESSMENT AND PLAN: This is an 82-year-old female with uncontrolled and decompensated type 2 insulin-requiring diabetes with recent glycemic fluctuations and clearly insulin-requiring at this time despite the combination of oral hypoglycemic therapy as given, presenting here with marked hyperglycemic accelerations despite an outpatient usage of oral hypoglycemic therapy given in combination and is now being followed closely for metabolic management. So at this time, we will continue the same basal insulin given as 16 units subcu at bedtime daily as given. Moreover, we will continue her oral hypoglycemic therapy given as Januvia as 100 mg daily and glipizide given as 10 mg b.i.d. before meals as ordered. We will try to hold off giving extra insulin therapy during today to simplify her outpatient home insulin management especially with occasional lapses of forgetfulness at this time. However, if hyperglycemic levels persist by mid day especially preprandially before lunch, then may consider the addition of a premixed insulin regimen as indicated. So at this time, we will continue the Levemir given as 16 units subcu at bedtime daily as given. We will also continue the Januvia given as 100 mg daily with glipizide given as 10 mg b.i.d. before meals as ordered. We will also continue the levothyroxine at the same dose of 100 mcg daily as she remains clinically and biochemically euthyroid at this time with the current regimen. We will obtain serial chemistries and supplement accordingly as needed. We will follow. Nita Arguelles MD
[2018-02-10] MEDS: Pantoprazole 40 mg EC Tab PO SCH (06:26)
[2018-02-10 07:19] LABS: BASO # 0.02 K/mm3 (0.0-2.0); BASO % 0.3 % (0.0-3.0); EOS # 0.2 (0.0-0.7); EOS % 3.1 % (1.5-5.0); GRAN # 3.51 (1.4-6.5); HEMOGLOBIN 9.9 g/dL (12.0-16.0); LYMPH % 32.7 % (22.0-35.0); MEAN CELL VOLUME 87.3 fl (80.0-105.0); MEAN CORPUSCULAR HEMOGLOBIN 27.9 pg (25.0-35.0); MEAN CORPUSCULAR HGB CONC 31.9 g/dl (31.0-37.0); MEAN PLATELET VOLUME 9.8 fl (7.0-11.0); MONO # 0.4 (0.1-0.6); MONO % 5.9 % (1.0-6.0); RBC 3.55 10^6/uL (3.5-6.1); RED CELL DISTRIBUTION WIDTH 14.4 % (11.5-14.5); WHITE BLOOD COUNT 6.1 10^3/ul (4.5-11.0)
--- NOTE | 2018-02-10 07:40 | CP.PCM.PN ---
Subjective - Date & Time of Evaluation Date of Evaluation: 02/10/18 Time of Evaluation: 06:55 - Subjective Subjective: Endocrinology progress note for Dr. Arguelles: Patient was seen and examined at bedside. Patient resting in bed comfortably. Complains of mild back pain but states the pain is well controlled at this time. No other complaints. 12 point ROS performed and negative other than stated above. Objective - Vital Signs/Intake and Output Vital Signs (last 24 hours): Temp Pulse Resp BP Pulse Ox 98 F 59 L 18 146/59 L 98 02/09/18 15:08 02/09/18 15:08 02/09/18 15:08 02/09/18 15:08 02/09/18 15:08 Intake and Output: 02/10/18 02/10/18 06:59 18:59 Intake Total 360 Balance 360 - Medications Medications: Current Medications Alprazolam (Xanax) 0.25 mg PO HS DIANA PRN Reason: Protocol Stop: 02/14/18 22:01 Last Admin: 02/09/18 23:03 Dose: 0.25 mg Alprazolam (Xanax) 0.25 mg PO BID DIANA PRN Reason: Protocol Stop: 02/14/18 18:01 Last Admin: 02/09/18 17:28 Dose: 0.25 mg Aspirin (Aspirin Chewable) 81 mg PO DAILY [facility] Last Admin: 02/09/18 09:21 Dose: 81 mg Gabapentin (Neurontin) 300 mg PO TID DIANA PRN Reason: Protocol Last Admin: 02/09/18 17:28 Dose: 300 mg Glipizide (Glucotrol) 10 mg PO ACBD [facility] Last Admin: 02/09/18 17:29 Dose: 10 mg Heparin Sodium (Porcine) (Heparin) 5,000 units SC Q12 DIANA PRN Reason: Protocol Last Admin: 02/09/18 23:04 Dose: 5,000 units Iron Sucrose 200 mg/ Sodium (Chloride) 110 mls @ 110 mls/hr IVPB DAILY [facility] Stop: 02/12/18 15:01 Last Admin: 02/09/18 17:27 Dose: 110 mls/hr Insulin Detemir (Levemir) 16 unit SC HS DIANA Last Admin: 02/09/18 23:05 Dose: 16 units Insulin Human Regular (Humulin R Med) 0 units SC ACHS DIAAN PRN Reason: Protocol Last Admin: 02/09/18 23:03 Dose: 3 units Levothyroxine Sodium (Synthroid) 100 mcg PO ACB [facility] Last Admin: 02/09/18 06:50 Dose: 100 mcg Lidocaine (Lidoderm) 1 ea TD DAILY [facility] Last Admin: 02/09/18 09:19 Dose: 1 ea Lisinopril (Zestril) 10 mg PO DAILY [facility] Last Admin: 02/09/18 09:22 Dose: 10 mg Metoprolol Tartrate (Lopressor) 25 mg PO BID [facility] Last Admin: 02/09/18 09:22 Dose: 25 mg Mirtazapine (Remeron) 15 mg PO HS [facility] Last Admin: 02/09/18 23:03 Dose: 15 mg Morphine Sulfate (Morphine) 1 mg IVP Q4H PRN PRN Reason: Pain, severe (8-10) Stop: 02/10/18 15:21 Non-Formulary Medication (Multivitamin [Honey Bears]) 1 tab PO DAILY [facility] Last Admin: 02/09/18 10:10 Dose: Not Given Pantoprazole Sodium (Protonix Ec Tab) 40 mg PO 0600 [facility] Last Admin: 02/10/18 06:26 Dose: 40 mg Polyethylene Glycol (Miralax) 17 gm PO BID [facility] Last Admin: 02/09/18 17:27 Dose: 17 gm Sitagliptin Phosphate (Januvia) 100 mg PO DAILY [facility] Last Admin: 02/09/18 10:00 Dose: 100 mg Zolpidem Tartrate (Ambien) 5 mg PO HS [facility] PRN Reason: Protocol Last Admin: 02/09/18 23:02 Dose: 5 mg - Labs Labs: 02/10/18 06:45 02/09/18 06:40 PT 13.3 SECONDS (9.4-12.5) H 02/07/18 11:15 INR 1.15 02/07/18 11:15 APTT 27.5 Seconds (25.1-36.5) 02/07/18 11:15 - Constitutional Appears: No Acute Distress - Head Exam Head Exam: ATRAUMATIC, NORMOCEPHALIC - Eye Exam Eye Exam: EOMI - ENT Exam ENT Exam: Mucous Membranes Moist - Respiratory Exam Respiratory Exam: Clear to Ausculation Bilateral. absent: Wheezes - Cardiovascular Exam Cardiovascular Exam: REGULAR RHYTHM, +S1, +S2 - GI/Abdominal Exam GI & Abdominal Exam: Soft. absent: Tenderness - Extremities Exam Extremities Exam: absent: Calf Tenderness - Neurological Exam Neurological Exam: Alert, Awake, Oriented x3 - Psychiatric Exam Psychiatric exam: Normal Mood - Skin Skin Exam: Dry, Intact, Warm Assessment and Plan - Assessment and Plan (Free Text) Assessment: 82 F with uncontrolled type 2 insulin requiring diabetes with recent glycemic fluctuations, insulin requiring at this time despite of oral hypoglycemic agents. Carb consistent diet Continue Basal insulin of Levemir 20 HS Continue Januvia 100mg daily Cont glipizide 10mg BID before meals Continue Levothyroxine 10mmcg daily Daily CMPs Fingersticks ACHS Case and plan was reviewed and discussed with Dr Blane Lehman, PGY3
[2018-02-10 07:46] LABS: ALB/GLOB RATIO 1.2 (1.1-1.8); ALBUMIN 3.9 g/dL (3.0-4.8); CALCIUM 9.2 mg/dL (8.4-10.5)
[2018-02-10] MEDS: Insulin Reg-MEDIUM-Coverage SC SCH ×4 (08:14→22:12)
[2018-02-10] MEDS: Lidocaine 5% Patch TD SCH (10:21)
[2018-02-10] MEDS: POLYETHYLENE GLYCOL 3350 17 GM/Dose PACKET PO SCH ×2 (10:21→18:02)
[2018-02-10] MEDS: MULTIVITAMIN PO SCH (10:24)
--- NOTE | 2018-02-10 10:41 | PN ---
Copied To: Nita Arguelles MD Attending MD: Nita Arguelles MD DATE: 02/10/2018 ENDO FOLLOWUP NOTE SUBJECTIVE: This is an 82-year-old female with recent uncontrolled type 2 insulin-requiring diabetes, now being followed closely for metabolic management. Her oral intake has been quite variable as per the nursing staff with glycemic fluctuations as expected. Her glucose levels overnight have ranged from 232-399 at bedtime last night. Her latest chemistry showed a BUN of 15, sodium 139, potassium 4.4, chloride 103, CO2 of 27, glucose 245 and creatinine 1.1. So at this time, we will modify once again her basal insulin and increase the Levemir to 20 units subcu at bedtime daily to start tonight. We will continue the same low-dose correction scale using Humalog insulin as given. We will titrate incrementally as indicated to optimize metabolic control. We will also continue the dual oral hypoglycemic drug therapy to simplify her morning and daytime regimen especially with the recent lapses of memory. We will continue the glipizide given as 10 mg b.i.d. before meals and Januvia given as 100 mg once daily as ordered. We will also continue her levothyroxine given as 100 mcg daily as ordered as she remains clinically and biochemically euthyroid at this time. We will obtain serial chemistries and supplement accordingly as needed. We will follow. Nita Arguelles MD
--- NOTE | 2018-02-10 12:31 | CP.PCM.DIS ---
Provider - Provider Date of Admission: 02/07/18 15:47 Attending physician: Jno Jade MD [facility] Course - Lab Results Lab Results: Most Recent Lab Values WBC 6.1 10^3/ul (4.5-11.0) 02/10/18 06:45 RBC 3.55 10^6/uL (3.5-6.1) 02/10/18 06:45 Hgb 9.9 g/dL (12.0-16.0) L 02/10/18 06:45 Hct 31.0 % (36.0-48.0) L 02/10/18 06:45 MCV 87.3 fl (80.0-105.0) 02/10/18 06:45 MCH 27.9 pg (25.0-35.0) 02/10/18 06:45 MCHC 31.9 g/dl (31.0-37.0) 02/10/18 06:45 RDW 14.4 % (11.5-14.5) 02/10/18 06:45 Plt Count 226 10^3/uL (120.0-450.0) 02/10/18 06:45 MPV 9.8 fl (7.0-11.0) 02/10/18 06:45 Gran % 58.0 % (50.0-68.0) 02/10/18 06:45 Lymph % (Auto) 32.7 % (22.0-35.0) 02/10/18 06:45 [place] % (Auto) 5.9 % (1.0-6.0) 02/10/18 06:45 Eos % (Auto) 3.1 % (1.5-5.0) 02/10/18 06:45 Baso % (Auto) 0.3 % (0.0-3.0) 02/10/18 06:45 Gran # 3.51 (1.4-6.5) 02/10/18 06:45 Lymph # (Auto) 2.0 (1.2-3.4) 02/10/18 06:45 [place] # (Auto) 0.4 (0.1-0.6) 02/10/18 06:45 Eos # (Auto) 0.2 (0.0-0.7) 02/10/18 06:45 Baso # (Auto) 0.02 K/mm3 (0.0-2.0) 02/10/18 06:45 PT 13.3 SECONDS (9.4-12.5) H 02/07/18 11:15 INR 1.15 02/07/18 11:15 APTT 27.5 Seconds (25.1-36.5) 02/07/18 11:15 pO2 49 mm/Hg (30-55) 02/07/18 15:50 VBG pH 7.33 (7.32-7.43) 02/07/18 15:50 VBG pCO2 52.0 (40-60) 02/07/18 15:50 VBG HCO3 27.4 mmol/l (21-28) 02/07/18 15:50 VBG Total CO2 29.0 mmol.L (22-28) H 02/07/18 15:50 VBG O2 Sat (Calc) 85.9 % (40-65) H 02/07/18 15:50 VBG Base Excess 0.6 mmol/L (0.0-2.0) 02/07/18 15:50 VBG Potassium 5.0 mmol/L (3.6-5.2) 02/07/18 15:50 Sodium 137.0 mmol/L (132-148) 02/07/18 15:50 Chloride 103.0 mmol/L (98-107) 02/07/18 15:50 Glucose 379 mg/dl (65-105) H 02/07/18 15:50 Lactate 2.6 mmol/L (0.7-2.1) H 02/07/18 15:50 FiO2 21.0 % 02/07/18 15:50 Sodium 139 mmol/L (132-148) 02/10/18 06:45 Potassium 4.4 mmol/L (3.6-5.0) 02/10/18 06:45 Chloride 103 mmol/L (98-107) 02/10/18 06:45 Carbon Dioxide 27 mmol/L (21-33) 02/10/18 06:45 Anion Gap 14 (10-20) 02/10/18 06:45 BUN 15 mg/dL (7-21) 02/10/18 06:45 Creatinine 1.1 mg/dl (0.7-1.2) 02/10/18 06:45 Est GFR ( Amer) 58 02/10/18 06:45 Est GFR (Non-Af Amer) 48 02/10/18 06:45 POC Glucose (mg/dL) 299 mg/dL (65-110) H 02/10/18 11:10 Random Glucose 245 mg/dL (70-110) H 02/10/18 06:45 Hemoglobin A1c 12.8 % (4.2-6.5) H D 02/08/18 07:00 Calcium 9.2 mg/dL (8.4-10.5) 02/10/18 06:45 Iron 40 ug/dL (45-180) L 02/08/18 07:00 TIBC 380 ug/dL (265-497) 02/08/18 07:00 % Saturation 10 % (20-55) L 02/08/18 07:00 Ferritin 10.0 ng/mL 02/08/18 07:00 Total Bilirubin 0.3 mg/dL (0.2-1.3) 02/10/18 06:45 AST 37 U/L (14-36) H D 02/10/18 06:45 ALT 25 U/L (7-56) 02/10/18 06:45 Alkaline Phosphatase 99 U/L (38-126) 02/10/18 06:45 Lactate Dehydrogenase 378 U/L (333-699) 02/07/18 11:15 Total Creatine Kinase 31 U/L (35-230) L 02/07/18 11:15 Troponin I < 0.01 ng/mL 02/07/18 11:15 Total Protein 7.2 g/dL (5.8-8.3) 02/10/18 06:45 Albumin 3.9 g/dL (3.0-4.8) 02/10/18 06:45 Globulin 3.3 gm/dL 02/10/18 06:45 Albumin/Globulin Ratio 1.2 (1.1-1.8) 02/10/18 06:45 Lipase 71 U/L (23-300) 02/07/18 11:15 Thyroxine (T4) 7.6 ug/dL (5.5-11.0) 02/09/18 06:40 TSH 3rd Generation 0.64 mIU/mL (0.46-4.68) 02/09/18 06:40 Venous Blood Potassium 5.0 mmol/L (3.6-5.2) 02/07/18 15:50 Urine Color Yellow (YELLOW) 02/07/18 13:45 Urine Appearance Sl cloudy (CLEAR) 02/07/18 13:45 Urine pH 6.0 (4.7-8.0) 02/07/18 13:45 Ur Specific [place] 1.010 (1.005-1.035) 02/07/18 13:45 Urine Protein Trace mg/dL (<30 mg/dL) H 02/07/18 13:45 Urine Glucose (UA) >=1000 mg/dL (NEGATIVE) 02/07/18 13:45 Urine Ketones Negative mg/dL (NEGATIVE) 02/07/18 13:45 Urine Blood Negative (NEGATIVE) 02/07/18 13:45 Urine Nitrate Negative (NEGATIVE) 02/07/18 13:45 Urine Bilirubin Negative (NEGATIVE) 02/07/18 13:45 Urine Urobilinogen 0.2 E.U./dL (<1 E.U./dL) 02/07/18 13:45 Ur Leukocyte Esterase Trace [place]/uL (NEGATIVE) H 02/07/18 13:45 Urine RBC Negative /hpf (0-2) 02/07/18 13:45 Urine WBC 1 - 3 /hpf (0-6) 02/07/18 13:45 Ur Epithelial Cells 1 - 3 /hpf (0-5) 02/07/18 13:45 Discharge Exam - Head Exam Head Exam: ATRAUMATIC, NORMOCEPHALIC Discharge Plan - Follow Up Plan Condition: FAIR Disposition: HOME/ ROUTINE Additional Instructions: Follow up with primary care doctor and Dr Arguelles, endocrinology in 1 week Discontinue metformin because your kidney function has declined slightly and you developed lactic acidosis on this hospital admission You are on 2 antiacid drug for GERD, discontinue zantac and only take omeprazole. Take omeprazole empty stomach, 30 minutes before breakfast Use levemir 20 units subcutaneous before bed Suggested to decrease Xanax from 4 times a day to 3 times a day Please check blood sugar at least daily ONCE AGAIN, DISCONTINUE METFORMIN AND ZANTAC Referrals: Randa Menezes APN, APN [Non-Staff] - 1 Week Nita Arguelles MD [Medical Doctor] - 1 Week
--- NOTE | 2018-02-10 14:20 | MRI ---
Date of service: 02/07/2018 PROCEDURE: MRI of the right hip without contrast HISTORY: R/O nerve entrapment COMPARISON: TECHNIQUE: MRI of the right hip was performed in multiple planes using multiple pulse sequences. FINDINGS: There is no marrow edema to suggest fracture or avascular necrosis. There is a minimal joint effusion in the right hip. There is no evidence of metastatic disease. The pelvis is unremarkable. There is no soft tissue mass along the pathway of the sciatic nerve. There is no muscular abnormality. The report concurs with the preliminary [facility] report IMPRESSION: Negative study
[2018-02-10 14:51] VITALS: O2SAT 97
--- NOTE | 2018-02-10 17:32 | CP.PCM.PN ---
<SoniaAna - Last Filed: 02/10/18 17:42> Subjective - Date & Time of Evaluation Date of Evaluation: 02/10/18 Time of Evaluation: 17:23 - Subjective Subjective: PGY-[address] Jade Pt cannot use levemir. [id number] refuses to learn and said she was extremely uncomfortable with needles. Per RN, daughter refuses to come to hospital to warp picker patient and learn how to use the levemir pen. She also complained that she cannot januvia. Case management/RN concern unsafe discharge Objective - Vital Signs/Intake and Output Vital Signs (last 24 hours): Temp Pulse Resp BP Pulse Ox 98.3 F 66 18 129/75 97 02/10/18 14:00 02/10/18 14:00 02/10/18 14:00 02/10/18 14:00 02/10/18 14:00 Intake and Output: 02/10/18 02/10/18 06:59 18:59 Intake Total 360 Balance 360 - Medications Medications: Current Medications Alprazolam (Xanax) 0.25 mg PO HS [facility] PRN Reason: Protocol Stop: 02/14/18 22:01 Last Admin: 02/09/18 23:03 Dose: 0.25 mg Alprazolam (Xanax) 0.25 mg PO BID [facility] PRN Reason: Protocol Stop: 02/14/18 18:01 Last Admin: 02/10/18 10:23 Dose: 0.25 mg Aspirin (Aspirin Chewable) 81 mg PO DAILY [facility] Last Admin: 02/10/18 10:20 Dose: 81 mg Gabapentin (Neurontin) 300 mg PO TID [facility] PRN Reason: Protocol Last Admin: 02/10/18 15:43 Dose: 300 mg Glipizide (Glucotrol) 10 mg PO ACBD [facility] Last Admin: 02/10/18 08:14 Dose: 10 mg Heparin Sodium (Porcine) (Heparin) 5,000 units SC Q12 [facility] PRN Reason: Protocol Last Admin: 02/10/18 10:21 Dose: 5,000 units Iron Sucrose 200 mg/ Sodium (Chloride) 110 mls @ 110 mls/hr IVPB DAILY [facility] Stop: 02/12/18 15:01 Last Admin: 02/10/18 10:23 Dose: 110 mls/hr Insulin Detemir (Levemir) 20 unit SC HS [facility] Insulin Human Regular (Humulin R Med) [address] [facility] PRN Reason: Protocol Last Admin: 02/10/18 17:11 Dose: 5 units Levothyroxine Sodium (Synthroid) 100 mcg PO ACB [facility] Last Admin: 02/09/18 06:50 Dose: 100 mcg Lidocaine (Lidoderm) 1 ea TD DAILY [facility] Last Admin: 02/10/18 10:21 Dose: 1 ea Lisinopril (Zestril) 10 mg PO DAILY [facility] Last Admin: 02/10/18 10:19 Dose: 10 mg Metoprolol Tartrate (Lopressor) 25 mg PO BID [facility] Last Admin: 02/10/18 10:22 Dose: 25 mg Mirtazapine (Remeron) 15 mg PO HS [facility] Last Admin: 02/09/18 23:03 Dose: 15 mg Non-Formulary Medication (Multivitamin [Honey Bears]) 1 tab PO DAILY [facility] Last Admin: 02/10/18 10:24 Dose: Not Given Pantoprazole Sodium (Protonix Ec Tab) 40 mg PO 0600 [facility] Last Admin: 02/10/18 06:26 Dose: 40 mg Polyethylene Glycol (Miralax) 17 gm PO BID [facility] Last Admin: 02/10/18 10:21 Dose: 17 gm Sitagliptin Phosphate (Januvia) 100 mg PO DAILY [facility] Last Admin: 02/10/18 10:20 Dose: 100 mg Zolpidem Tartrate (Ambien) 5 mg PO [facility] PRN Reason: Protocol Last Admin: 02/09/18 23:02 Dose: 5 mg - Labs Labs: 02/10/18 06:45 02/10/18 06:45 PT 13.3 SECONDS (9.4-12.5) H 02/07/18 11:15 INR 1.15 02/07/18 11:15 APTT 27.5 Seconds (25.1-36.5) 02/07/18 11:15 - Constitutional Appears: No Acute Distress - Head Exam Head Exam: ATRAUMATIC, NORMAL INSPECTION, NORMOCEPHALIC - Eye Exam Eye Exam: EOMI, Normal appearance, PERRL Pupil Exam: NORMAL ACCOMODATION - ENT Exam ENT Exam: Mucous Membranes Moist - Neck Exam Additional comments: supple - Respiratory Exam Respiratory Exam: Clear to Ausculation Bilateral. absent: Rales, Rhonchi, Wheezes - Cardiovascular Exam Cardiovascular Exam: REGULAR RHYTHM, +S1, +S2 - GI/Abdominal Exam GI & Abdominal Exam: Soft, Normal Bowel Sounds. absent: Rigid, Tenderness, Hyperactive Bowel Sounds - Extremities Exam Extremities Exam: Pedal Edema. absent: Calf Tenderness - Back Exam Back Exam: absent: CVA tenderness (L), CVA tenderness (R) - Neurological Exam Neurological Exam: Alert, Awake. absent: Normal Gait (slow and wide-step due to pain) Neuro motor strength exam: Left Upper Extremity: 5, Right Upper Extremity: 5, Left Lower Extremity: 5, Right Lower Extremity: 5 Additional comments: b/l hand tremors - Psychiatric Exam Psychiatric exam: Normal Affect, Normal Mood - Skin Skin Exam: Dry, Warm Assessment and Plan - Assessment and Plan (Free Text) Plan: Ms Dietz is admitted for intractable back pain with radiation and HHS, uncontrolled DM Intractable hip/lower back pain. Had ruled out obstruction/stenosis from CT lumbar. Need to r/o entrapment - MRI lumbar spine: Mild Degenerative changes L3/4, L4/5 with post surgical changes - MRI R hip: negative - Gabapentin. Lidoderm patch. morphine PRN. 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 Due to elevated Cre, elevated lactate, and cost, consider switching hypoglycemic regimen and off metformin GERD - Use protonix. Hold home med (ranitidine and omeprazole) HTN - Continue lisinopril, metoprolol, ASA, for CV risk reduction. hypothyrodism - continue Synthroid Anxiety - During the day, Decreased Xanax from home TID to BID; observe mood; During the night, Xanax/Ambien/Remeron HS Anemia, Fe deficient - Need outpatient workup, such as heme occult in stool Discharge planning - PT recommend home with services. VNA consult - pt cannot use levemir pen. 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 txt dr holt to revise hypoglycemic regimen. pt said she cannot affort januvia. printed a copy of [employer] discount drug application s/r/d/w Dr Jade <Jon Jade S - Last Filed: 02/10/18 21:59> Objective - Vital Signs/Intake and Output Vital Signs (last 24 hours): Temp Pulse Resp BP Pulse Ox 98.3 F 74 18 162/88 H 97 02/10/18 14:00 02/10/18 18:08 02/10/18 14:00 02/10/18 18:58 02/10/18 14:00 - Medications Medications: Current Medications Alprazolam (Xanax) 0.25 mg PO HS [facility] PRN Reason: Protocol Stop: 02/14/18 22:01 Last Admin: 02/09/18 23:03 Dose: 0.25 mg Alprazolam (Xanax) 0.25 mg PO BID [facility] PRN Reason: Protocol Stop: 02/14/18 18:01 Last Admin: 02/10/18 18:06 Dose: 0.25 mg Aspirin (Aspirin Chewable) 81 mg PO DAILY [facility] Last Admin: 02/10/18 10:20 Dose: 81 mg Gabapentin (Neurontin) 300 mg PO TID [facility] PRN Reason: Protocol Last Admin: 02/10/18 18:07 Dose: 300 mg Glipizide (Glucotrol) 10 mg PO ACBD [facility] Last Admin: 02/10/18 18:06 Dose: 10 mg Heparin Sodium (Porcine) (Heparin) 5,000 units SC Q12 [facility] PRN Reason: Protocol Last Admin: 02/10/18 10:21 Dose: 5,000 units Iron Sucrose 200 mg/ Sodium (Chloride) 110 mls @ 110 mls/hr IVPB DAILY [facility] Stop: 02/12/18 15:01 Last Admin: 02/10/18 10:23 Dose: 110 mls/hr Insulin Detemir (Levemir) 20 unit SC HS [facility] Insulin Human Regular (Humulin R Med) 0 units SC ACHS [facility] PRN Reason: Protocol Last Admin: 02/10/18 17:11 Dose: 5 units Levothyroxine Sodium (Synthroid) 100 mcg PO ACB [facility] Last Admin: 02/09/18 06:50 Dose: 100 mcg Lidocaine (Lidoderm) 1 ea TD DAILY [facility] Last Admin: 02/10/18 10:21 Dose: 1 ea Lisinopril (Zestril) 10 mg PO DAILY [facility] Last Admin: 02/10/18 10:19 Dose: 10 mg Metoprolol Tartrate (Lopressor) 25 mg PO BID [facility] Last Admin: 02/10/18 18:08 Dose: 25 mg Mirtazapine (Remeron) 15 mg PO HS [facility] Last Admin: 02/09/18 23:03 Dose: 15 mg Non-Formulary Medication (Multivitamin [Honey Bears]) 1 tab PO DAILY [facility] Last Admin: 02/10/18 10:24 Dose: Not Given Pantoprazole Sodium (Protonix Ec Tab) 40 mg PO 0600 [facility] Last Admin: 02/10/18 06:26 Dose: 40 mg Polyethylene Glycol (Miralax) 17 gm PO BID [facility] Last Admin: 02/10/18 18:02 Dose: Not Given Sitagliptin Phosphate (Januvia) 100 mg PO DAILY [facility] Last Admin: 02/10/18 10:20 Dose: 100 mg Zolpidem Tartrate (Ambien) 5 mg PO [facility] PRN Reason: Protocol Last Admin: 02/09/18 23:02 Dose: 5 mg - Labs Labs: 02/10/18 06:45 02/10/18 06:45 PT 13.3 SECONDS (9.4-12.5) H 02/07/18 11:15 INR 1.15 02/07/18 11:15 APTT 27.5 Seconds (25.1-36.5) 02/07/18 11:15 Assessment and Plan - Assessment and Plan (Free Text) Plan: Pt seen and examined. I have reviewed the note of the manager medical and agree with it. I have discussed the assessment and plan with the resident. I have reviewed the patient's labs and medications. Pt to be discharged. No one is availabe to pick her up until tomorrow. She will be on Levemir for her DM-2.
[2018-02-10] MEDS ORDERED: Insulin Detemir 100 units/ml Vial (Levemir) SC SCH (22:00)
[2018-02-10] MEDS ORDERED: Morphine 2 mg/ml ISec IVP PRN (23:53)
[2018-02-11] MEDS ORDERED: Morphine 2 mg/ml ISec IVP PRN (00:48)
[2018-02-11] MEDS: Pantoprazole 40 mg EC Tab PO SCH (06:59)
[2018-02-11] MEDS: Levothyroxine 100 MCG TAB PO SCH (07:58)
[2018-02-11] MEDS: Insulin Reg-MEDIUM-Coverage SC SCH ×2 (07:59→11:31)
--- NOTE | 2018-02-11 08:01 | CP.PCM.PN ---
Subjective - Date & Time of Evaluation Date of Evaluation: 02/11/18 Time of Evaluation: 07:45 - Subjective Subjective: Endocrinology progress note for Dr. Arguelles: Patient was seen and examined at bedside. Patient resting in bed comfortably. Patient blood sugars still elevated in the 200's. No other complaints. 12 point ROS performed and negative other than stated above. Objective - Vital Signs/Intake and Output Vital Signs (last 24 hours): Temp Pulse Resp BP Pulse Ox 98.4 F 65 18 157/69 H 97 02/10/18 22:09 02/10/18 22:09 02/10/18 22:09 02/10/18 22:09 02/10/18 22:09 - Medications Medications: Current Medications Alprazolam (Xanax) 0.25 mg PO HS [facility] PRN Reason: Protocol Stop: 02/14/18 22:01 Last Admin: 02/10/18 22:10 Dose: 0.25 mg Alprazolam (Xanax) 0.25 mg PO BID [facility] PRN Reason: Protocol Stop: 02/14/18 18:01 Last Admin: 02/10/18 18:06 Dose: 0.25 mg Aspirin (Aspirin Chewable) 81 mg PO DAILY [facility] Last Admin: 02/10/18 10:20 Dose: 81 mg Gabapentin (Neurontin) 300 mg PO TID [facility] PRN Reason: Protocol Last Admin: 02/10/18 18:07 Dose: 300 mg Glipizide (Glucotrol) 10 mg PO ACBD [facility] Last Admin: 02/10/18 18:06 Dose: 10 mg Heparin Sodium (Porcine) (Heparin) 5,000 units SC Q12 [facility] PRN Reason: Protocol Last Admin: 02/10/18 22:09 Dose: 5,000 units Iron Sucrose 200 mg/ Sodium (Chloride) 110 mls @ 110 mls/hr IVPB DAILY [facility] Stop: 02/12/18 15:01 Last Admin: 02/10/18 10:23 Dose: 110 mls/hr Insulin Detemir (Levemir) 20 unit SC HS [facility] Last Admin: 02/10/18 22:11 Dose: 20 units Insulin Human Regular (Humulin R Med) 0 units SC ACHS [facility] PRN Reason: Protocol Last Admin: 02/10/18 22:12 Dose: Not Given Levothyroxine Sodium (Synthroid) 100 mcg PO ACB [facility] Last Admin: 02/09/18 06:50 Dose: 100 mcg Lidocaine (Lidoderm) 1 ea TD DAILY [facility] Last Admin: 02/10/18 10:21 Dose: 1 ea Lisinopril (Zestril) 10 mg PO DAILY [facility] Last Admin: 02/10/18 10:19 Dose: 10 mg Metoprolol Tartrate (Lopressor) 25 mg PO BID [facility] Last Admin: 02/10/18 18:08 Dose: 25 mg Mirtazapine (Remeron) 15 mg PO HS [facility] Last Admin: 02/10/18 22:10 Dose: 15 mg Non-Formulary Medication (Multivitamin [Honey Bears]) 1 tab PO DAILY [facility] Last Admin: 02/10/18 10:24 Dose: Not Given Pantoprazole Sodium (Protonix Ec Tab) 40 mg PO 0600 [facility] Last Admin: 02/11/18 06:59 Dose: 40 mg Polyethylene Glycol (Miralax) 17 gm PO BID [facility] Last Admin: 02/10/18 18:02 Dose: Not Given Sitagliptin Phosphate (Januvia) 100 mg PO DAILY [facility] Last Admin: 02/10/18 10:20 Dose: 100 mg Zolpidem Tartrate (Ambien) 5 mg PO [facility] PRN Reason: Protocol Last Admin: 02/10/18 22:10 Dose: 5 mg - Labs Labs: 02/10/18 06:45 02/10/18 06:45 PT 13.3 SECONDS (9.4-12.5) H 02/07/18 11:15 INR 1.15 02/07/18 11:15 APTT 27.5 Seconds (25.1-36.5) 02/07/18 11:15 - Constitutional Appears: No Acute Distress - Eye Exam Eye Exam: EOMI - ENT Exam ENT Exam: Mucous Membranes Moist - Respiratory Exam Respiratory Exam: Clear to Ausculation Bilateral. absent: Rales, Wheezes - Cardiovascular Exam Cardiovascular Exam: REGULAR RHYTHM, +S1, +S2 - GI/Abdominal Exam GI & Abdominal Exam: Soft, Normal Bowel Sounds. absent: Distended, Tenderness - Extremities Exam Extremities Exam: absent: Calf Tenderness, Pedal Edema - Neurological Exam Neurological Exam: Alert, Awake, Oriented x3 - Psychiatric Exam Psychiatric exam: Normal Mood - Skin Skin Exam: Dry, Intact, Warm Assessment and Plan - Assessment and Plan (Free Text) Assessment: 82 F with uncontrolled type 2 insulin requiring diabetes with recent glycemic fluctuations, insulin requiring at this time despite of oral hypoglycemic agents. Carb consistent diet Continue Basal insulin of Levemir 20 HS Continue Januvia 100mg daily and glipizide 10mg BID before meals Continue Levothyroxine 100mcg daily Daily CMPs and Fingersticks ACHS F/u public health educator referral Case and plan was reviewed and discussed with Dr Blane Lehman, PGY3
--- NOTE | 2018-02-11 09:06 | CP.PCM.DIS ---
<Ana Scott - Last Filed: 02/11/18 14:28> Provider - Provider Date of Admission: 02/07/18 15:47 Attending physician: Jon Jade MD Consults: Dr Arguelles Time Spent in preparation of Discharge (in minutes): 30 Diagnosis - Discharge Diagnosis (1) Uncontrolled diabetes mellitus Status: Acute (2) Hyperglycemia due to type 2 diabetes mellitus Status: Acute (3) Acute right hip pain Status: Acute (4) Acute low back pain Status: Acute Hospital Course - Lab Results Lab Results: Most Recent Lab Values WBC 6.1 10^3/ul (4.5-11.0) 02/10/18 06:45 RBC 3.55 10^6/uL (3.5-6.1) 02/10/18 06:45 Hgb 9.9 g/dL (12.0-16.0) L 02/10/18 06:45 Hct 31.0 % (36.0-48.0) L 02/10/18 06:45 MCV 87.3 fl (80.0-105.0) 02/10/18 06:45 MCH 27.9 pg (25.0-35.0) 02/10/18 06:45 MCHC 31.9 g/dl (31.0-37.0) 02/10/18 06:45 RDW 14.4 % (11.5-14.5) 02/10/18 06:45 Plt Count 226 10^3/uL (120.0-450.0) 02/10/18 06:45 MPV 9.8 fl (7.0-11.0) 02/10/18 06:45 Gran % 58.0 % (50.0-68.0) 02/10/18 06:45 Lymph % (Auto) 32.7 % (22.0-35.0) 02/10/18 06:45 [place] % (Auto) 5.9 % (1.0-6.0) 02/10/18 06:45 Eos % (Auto) 3.1 % (1.5-5.0) 02/10/18 06:45 Baso % (Auto) 0.3 % (0.0-3.0) 02/10/18 06:45 Gran # 3.51 (1.4-6.5) 02/10/18 06:45 Lymph # (Auto) 2.0 (1.2-3.4) 02/10/18 06:45 [place] # (Auto) 0.4 (0.1-0.6) 02/10/18 06:45 Eos # (Auto) 0.2 (0.0-0.7) 02/10/18 06:45 Baso # (Auto) 0.02 K/mm3 (0.0-2.0) 02/10/18 06:45 PT 13.3 SECONDS (9.4-12.5) H 02/07/18 11:15 INR 1.15 02/07/18 11:15 APTT 27.5 Seconds (25.1-36.5) 02/07/18 11:15 pO2 49 mm/Hg (30-55) 02/07/18 15:50 VBG pH 7.33 (7.32-7.43) 02/07/18 15:50 VBG pCO2 52.0 (40-60) 02/07/18 15:50 VBG HCO3 27.4 mmol/l (21-28) 02/07/18 15:50 VBG Total CO2 29.0 mmol.L (22-28) H 02/07/18 15:50 VBG O2 Sat (Calc) 85.9 % (40-65) H 02/07/18 15:50 VBG Base Excess 0.6 mmol/L (0.0-2.0) 02/07/18 15:50 VBG Potassium 5.0 mmol/L (3.6-5.2) 02/07/18 15:50 Sodium 137.0 mmol/L (132-148) 02/07/18 15:50 Chloride 103.0 mmol/L (98-107) 02/07/18 15:50 Glucose 379 mg/dl (65-105) H 02/07/18 15:50 Lactate 2.6 mmol/L (0.7-2.1) H 02/07/18 15:50 FiO2 21.0 % 02/07/18 15:50 Sodium 139 mmol/L (132-148) 02/10/18 06:45 Potassium 4.4 mmol/L (3.6-5.0) 02/10/18 06:45 Chloride 103 mmol/L (98-107) 02/10/18 06:45 Carbon Dioxide 27 mmol/L (21-33) 02/10/18 06:45 Anion Gap 14 (10-20) 02/10/18 06:45 BUN 15 mg/dL (7-21) 02/10/18 06:45 Creatinine 1.1 mg/dl (0.7-1.2) 08 06:45 Est GFR ( Amer) 58 02/10/18 06:45 Est GFR (Non-Af Amer) 48 02/10/18 06:45 POC Glucose (mg/dL) 299 mg/dL (65-110) H 02/10/18 11:10 Random Glucose 245 mg/dL (70-110) H 02/10/18 06:45 Hemoglobin A1c 12.8 % (4.2-6.5) H D 02/08/18 07:00 Calcium 9.2 mg/dL (8.4-10.5) 02/10/18 06:45 Iron 40 ug/dL (45-180) L 02/08/18 07:00 TIBC 380 ug/dL (265-497) 02/08/18 07:00 % Saturation 10 % (20-55) L 02/08/18 07:00 Ferritin 10.0 ng/mL 02/08/18 07:00 Total Bilirubin 0.3 mg/dL (0.2-1.3) 02/10/18 06:45 AST 37 U/L (14-36) H D 02/10/18 06:45 ALT 25 U/L (7-56) 02/10/18 06:45 Alkaline Phosphatase 99 U/L (38-126) 02/10/18 06:45 Lactate Dehydrogenase 378 U/L (333-699) 02/07/18 11:15 Total Creatine Kinase 31 U/L (35-230) L 02/07/18 11:15 Troponin I < 0.01 ng/mL 02/07/18 11:15 Total Protein 7.2 g/dL (5.8-8.3) 02/10/18 06:45 Albumin 3.9 g/dL (3.0-4.8) 02/10/18 06:45 Globulin 3.3 gm/dL 02/10/18 06:45 Albumin/Globulin Ratio 1.2 (1.1-1.8) 02/10/18 06:45 Lipase 71 U/L (23-300) 02/07/18 11:15 Thyroxine (T4) 7.6 ug/dL (5.5-11.0) 02/09/18 06:40 TSH 3rd Generation 0.64 mIU/mL (0.46-4.68) 02/09/18 06:40 Venous Blood Potassium 5.0 mmol/L (3.6-5.2) 02/07/18 15:50 Urine Color Yellow (YELLOW) 02/07/18 13:45 Urine Appearance Sl cloudy (CLEAR) 02/07/18 13:45 Urine pH 6.0 (4.7-8.0) 02/07/18 13:45 Ur Specific [place] 1.010 (1.005-1.035) 02/07/18 13:45 Urine Protein Trace mg/dL (<30 mg/dL) H 02/07/18 13:45 Urine Glucose (UA) >=1000 mg/dL (NEGATIVE) 02/07/18 13:45 Urine Ketones Negative mg/dL (NEGATIVE) 02/07/18 13:45 Urine Blood Negative (NEGATIVE) 02/07/18 13:45 Urine Nitrate Negative (NEGATIVE) 02/07/18 13:45 Urine Bilirubin Negative (NEGATIVE) 02/07/18 13:45 Urine Urobilinogen 0.2 E.U./dL (<1 E.U./dL) 02/07/18 13:45 Ur Leukocyte Esterase Trace Tracey/uL (NEGATIVE) H 02/07/18 13:45 Urine RBC Negative /hpf (0-2) 02/07/18 13:45 Urine WBC 1 - 3 /hpf (0-6) 02/07/18 13:45 Ur Epithelial Cells 1 - 3 /hpf (0-5) 02/07/18 13:45 - Hospital Course Hospital Course: PGY-[address] Jade Ms Dietz is admitted for intractable back pain with radiation and HHS, uncontrolled DM Intractable hip/lower back pain. Had ruled out obstruction/stenosis from CT lumbar. had ruled out entrapment by MRI - MRI lumbar spine: Mild Degenerative changes L3/4, L4/5 with post surgical changes - MRI R hip: negative - Gabapentin. Lidoderm patch. morphine PRN. - Physical therapy - At discharge, pt is able to walk slowly with physical therapy. PT recommended home with services. 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 Family is not willing to use the pen despite counseling. - A1C 12.8 - Diabetic education/recipes - Per endo, Continue glipizide and Januvia. Given pt [employer] drug discount application to be filled out by PMD - Discontinue metfomin. Due to elevated Cre, elevated lactate, decreased renal function Decreased renal function, suspected CKD3 - out patient follow up GERD - Hold ranitidine. Educated to take omeprazole AM in empty stomach HTN - Continue lisinopril, metoprolol, ASA, for CV risk reduction. hypothyrodism - continue Synthroid Anxiety - During the day, Decreased Xanax from home TID to BID; observe mood; During the night, Xanax/Ambien/Remeron HS Anemia, Fe deficient - Need outpatient workup, such as heme occult in stool Discharge planning - Pt could not discharge home yesterday due to ride issue. Pt will receive 1 month supply of januvia from [facility], and will apply for januvia discount from [employer]. follow up with PMD and Dr Arguelles outpatient s/r/d/w Dr Jade Discharge Exam - Head Exam Head Exam: ATRAUMATIC, NORMAL INSPECTION, NORMOCEPHALIC - Eye Exam Eye Exam: EOMI, Normal appearance - ENT Exam ENT Exam: Mucous Membranes Moist - Neck Exam Additional comments: supple - Respiratory Exam Respiratory Exam: NORMAL BREATHING PATTERN. absent: Rales, Rhonchi, Wheezes - Cardiovascular Exam Cardiovascular Exam: REGULAR RHYTHM, +S1, +S2. absent: Systolic Murmur - GI/Abdominal Exam GI & Abdominal Exam: Normal Bowel Sounds, Soft, Unremarkable. absent: Tenderness - Extremities Exam Extremities exam: pedal pulses present Additional comments: no calf tenderness. hip pain improves - Back Exam Back exam: absent: CVA tenderness (L), CVA tenderness (R) - Neurological Exam Neurological exam: Alert, Oriented x3 - Psychiatric Exam Psychiatric exam: Normal Affect, Normal Mood - Skin Skin Exam: Dry, Warm Discharge Plan - Discharge Medications Prescriptions: SITagliptin [Januvia] 50 mg PO DAILY #30 tab - Follow Up Plan Condition: FAIR Disposition: HOME/ ROUTINE Instructions: Sciatica, Preventing Falls in the Older Adult, Hyperglycemia, Adult (DC), Why Vaccines Are Important for Everyone, Diabetic Meal Planning Additional Instructions: Follow up with primary care doctor re: (1) this hospital stay and decreased in kidney function, (2) outpatient workup of iron deficiency anemia, such as heme occult in stool, (3) prescription drug discount application Follow up Dr Arguelles, endocrinology in 1 week. Discontinue metformin because your kidney function has declined slightly and you developed lactic acidosis on this hospital admission Please note januvia has decreased dosage because it is adjusted for your decrease kidney function. For Diabetes, take januvia once daily and glipizide 10 twice daily You are on 2 antiacid drug for GERD, discontinue zantac and only take omeprazole. Take omeprazole empty stomach, 30 minutes before breakfast Suggested to decrease Xanax from 4 times a day to 3 times a day Please check blood sugar at least daily, and follow diabetic education advices ONCE AGAIN, DISCONTINUE METFORMIN AND ZANTAC Referrals: Randa Menezes APN, APN [Non-Staff] - 1 Week Nita Arguelles MD [Medical Doctor] - 1 Week <Jon Jade - Last Filed: 02/11/18 22:41> Provider - Provider Date of Admission: 02/07/18 15:47 Attending physician: Jon Jade MD Hospital Course - Lab Results Lab Results: Most Recent Lab Values WBC 6.1 10^3/ul (4.5-11.0) 02/10/18 06:45 RBC 3.55 10^6/uL (3.5-6.1) 02/10/18 06:45 Hgb 9.9 g/dL (12.0-16.0) L 02/10/18 06:45 Hct 31.0 % (36.0-48.0) L 02/10/18 06:45 MCV 87.3 fl (80.0-105.0) 02/10/18 06:45 MCH 27.9 pg (25.0-35.0) 02/10/18 06:45 MCHC 31.9 g/dl (31.0-37.0) 02/10/18 06:45 RDW 14.4 % (11.5-14.5) 02/10/18 06:45 Plt Count 226 10^3/uL (120.0-450.0) 02/10/18 06:45 MPV 9.8 fl (7.0-11.0) 02/10/18 06:45 Gran % 58.0 % (50.0-68.0) 02/10/18 06:45 Lymph % (Auto) 32.7 % (22.0-35.0) 02/10/18 06:45 [place] % (Auto) 5.9 % (1.0-6.0) 02/10/18 06:45 Eos % (Auto) 3.1 % (1.5-5.0) 02/10/18 06:45 Baso % (Auto) 0.3 % (0.0-3.0) 02/10/18 06:45 Gran # 3.51 (1.4-6.5) 02/10/18 06:45 Lymph # (Auto) 2.0 (1.2-3.4) 02/10/18 06:45 [place] # (Auto) 0.4 (0.1-0.6) 02/10/18 06:45 Eos # (Auto) 0.2 (0.0-0.7) 02/10/18 06:45 Baso # (Auto) 0.02 K/mm3 (0.0-2.0) 02/10/18 06:45 PT 13.3 SECONDS (9.4-12.5) H 02/07/18 11:15 INR 1.15 02/07/18 11:15 APTT 27.5 Seconds (25.1-36.5) 02/07/18 11:15 pO2 49 mm/Hg (30-55) 02/07/18 15:50 VBG pH 7.33 (7.32-7.43) 02/07/18 15:50 VBG pCO2 52.0 (40-60) 02/07/18 15:50 VBG HCO3 27.4 mmol/l (21-28) 02/07/18 15:50 VBG Total CO2 29.0 mmol.L (22-28) H 02/07/18 15:50 VBG O2 Sat (Calc) 85.9 % (40-65) H 02/07/18 15:50 VBG Base Excess 0.6 mmol/L (0.0-2.0) 02/07/18 15:50 VBG Potassium 5.0 mmol/L (3.6-5.2) 02/07/18 15:50 Sodium 137.0 mmol/L (132-148) 02/07/18 15:50 Chloride 103.0 mmol/L (98-107) 02/07/18 15:50 Glucose 379 mg/dl (65-105) H 02/07/18 15:50 Lactate 2.6 mmol/L (0.7-2.1) H 02/07/18 15:50 FiO2 21.0 % 02/07/18 15:50 Sodium 139 mmol/L (132-148) 02/10/18 06:45 Potassium 4.4 mmol/L (3.6-5.0) 02/10/18 06:45 Chloride 103 mmol/L (98-107) 02/10/18 06:45 Carbon Dioxide 27 mmol/L (21-33) 02/10/18 06:45 Anion Gap 14 (10-20) 02/10/18 06:45 BUN 15 mg/dL (7-21) 02/10/18 06:45 Creatinine 1.1 mg/dl (0.7-1.2) 02/10/18 06:45 Est GFR ( Amer) 58 02/10/18 06:45 Est GFR (Non-Af Amer) 48 02/10/18 06:45 POC Glucose (mg/dL) 457 mg/dL (65-110) H* 02/11/18 10:54 Random Glucose 245 mg/dL (70-110) H 02/10/18 06:45 Hemoglobin A1c 12.8 % (4.2-6.5) H D 02/08/18 07:00 Calcium 9.2 mg/dL (8.4-10.5) 02/10/18 06:45 Iron 40 ug/dL (45-180) L 02/08/18 07:00 TIBC 380 ug/dL (265-497) 02/08/18 07:00 % Saturation 10 % (20-55) L 02/08/18 07:00 Ferritin 10.0 ng/mL 02/08/18 07:00 Total Bilirubin 0.3 mg/dL (0.2-1.3) 02/10/18 06:45 AST 37 U/L (14-36) H D 02/10/18 06:45 ALT 25 U/L (7-56) 02/10/18 06:45 Alkaline Phosphatase 99 U/L (38-126) 02/10/18 06:45 Lactate Dehydrogenase 378 U/L (333-699) 02/07/18 11:15 Total Creatine Kinase 31 U/L (35-230) L 02/07/18 11:15 Troponin I < 0.01 ng/mL 02/07/18 11:15 Total Protein 7.2 g/dL (5.8-8.3) 02/10/18 06:45 Albumin 3.9 g/dL (3.0-4.8) 02/10/18 06:45 Globulin 3.3 gm/dL 02/10/18 06:45 Albumin/Globulin Ratio 1.2 (1.1-1.8) 02/10/18 06:45 Lipase 71 U/L (23-300) 02/07/18 11:15 Thyroxine (T4) 7.6 ug/dL (5.5-11.0) 02/09/18 06:40 TSH 3rd Generation 0.64 mIU/mL (0.46-4.68) 02/09/18 06:40 Venous Blood Potassium 5.0 mmol/L (3.6-5.2) 02/07/18 15:50 Urine Color Yellow (YELLOW) 02/07/18 13:45 Urine Appearance Sl cloudy (CLEAR) 02/07/18 13:45 Urine pH 6.0 (4.7-8.0) 02/07/18 13:45 Ur Specific [place] 1.010 (1.005-1.035) 02/07/18 13:45 Urine Protein Trace mg/dL (<30 mg/dL) H 02/07/18 13:45 Urine Glucose (UA) >=1000 mg/dL (NEGATIVE) 02/07/18 13:45 Urine Ketones Negative mg/dL (NEGATIVE) 02/07/18 13:45 Urine Blood Negative (NEGATIVE) 02/07/18 13:45 Urine Nitrate Negative (NEGATIVE) 02/07/18 13:45 Urine Bilirubin Negative (NEGATIVE) 02/07/18 13:45 Urine Urobilinogen 0.2 E.U./dL (<1 E.U./dL) 02/07/18 13:45 Ur Leukocyte Esterase Trace Tracey/uL (NEGATIVE) H 02/07/18 13:45 Urine RBC Negative /hpf (0-2) 02/07/18 13:45 Urine WBC 1 - 3 /hpf (0-6) 02/07/18 13:45 Ur Epithelial Cells 1 - 3 /hpf (0-5) 02/07/18 13:45 - Hospital Course Hospital Course: Pt seen and examined. I have reviewed the note of the medical laboratory specialist and agree with it. I have discussed the assessment and plan with the resident. I have reviewed the patient's labs and medications. Pt is going home today. The family was not able to supervisor opening and picking the pt yesterday. DM-2 was uncontrolled. Pt on Levemir for DM-2, new medications.
[2018-02-11 09:18] VITALS: RESP 20; TEMP 98.2
[2018-02-11] MEDS: POLYETHYLENE GLYCOL 3350 17 GM/Dose PACKET PO SCH (09:48)
[2018-02-11] MEDS: Lidocaine 5% Patch TD SCH (09:48)
[2018-02-11] MEDS: MULTIVITAMIN PO SCH (09:49)
[2018-02-11 09:54] VITALS: BP 136/69; PULSE 74
--- NOTE | 2018-02-11 14:25 | PN ---
Copied To: Nita Arguelles MD Attending MD: Nita Arguelles MD DATE: 02/11/2018 ENDOCRINOLOGY FOLLOWUP NOTE LOCATION: Room 577. This is an 82-year-old female with recent uncontrolled type 2 insulin requiring diabetes, now being followed here for metabolic management. which has ranged from 242 to 299 mg/dL last night. Today, the glucose levels are impaired overnight with a glucose value of 131 mg/dL. given overnight. So at this time, we will continue the same basal insulin given as Levemir at 20 units subcu at bedtime daily as ordered. However, this will only be for inpatient diabetic management and will be eventually discontinued upon discharge home since the patient cannot self inject her own insulin because of the above-mentioned reasons. We will, however, continue to give her dual oral hypoglycemic therapy given as glipizide at 10 mg b.i.d. and Januvia given as 100 mg once daily as ordered. We will also continue her levothyroxine given as 100 mcg daily as ordered. We will obtain serial chemistries and supplement accordingly as needed. We will follow with you. Nita Arguelles MD
== END 2018-02-11 14:57 | disposition home or self-care (01) | DRG 638 ==
LOC: ED 08:47 → ERH 12:05 → 5RSO 14:14 → OBSVTOIN 15:47
PROVIDERS: ADMIT Internal Medicine Nephrology; ATTEND Internal Medicine Nephrology
DX: E11.65 Type 2 diabetes mellitus with hyperglycemia (principal); E87.2 Acidosis; I25.10 Atherosclerotic heart disease of native coronary artery without angina pectoris; J44.9 Chronic obstructive pulmonary disease, unspecified; N18.3 Chronic kidney disease, stage 3 (moderate); E11.22 Type 2 diabetes mellitus with diabetic chronic kidney disease; I12.9 Hypertensive chronic kidney disease with stage 1 through stage 4 chronic kidney disease, or unspecified chronic kidney disease; K21.9 Gastro-esophageal reflux disease without esophagitis; K31.84 Gastroparesis; E11.43 Type 2 diabetes mellitus with diabetic autonomic (poly)neuropathy; E87.5 Hyperkalemia; E11.51 Type 2 diabetes mellitus with diabetic peripheral angiopathy without gangrene; G89.29 Other chronic pain; M51.16 Intervertebral disc disorders with radiculopathy, lumbar region; D50.9 Iron deficiency anemia, unspecified; E11.319 Type 2 diabetes mellitus with unspecified diabetic retinopathy without macular edema; E11.42 Type 2 diabetes mellitus with diabetic polyneuropathy; E78.00 Pure hypercholesterolemia, unspecified; E03.9 Hypothyroidism, unspecified; K59.00 Constipation, unspecified; F41.1 Generalized anxiety disorder; Z79.4 Long term (current) use of insulin; Z87.891 Personal history of nicotine dependence

== ENCOUNTER 2018-07-29 12:14 | Outpatient (CLI) | payer MEDICARE | END 2018-07-29 12:15 | disposition home or self-care (01) | LOC: RAD 12:15 ==

== ENCOUNTER 2018-09-20 09:31 | Emergency (ER) | payer MEDICARE ==
[2018-09-20 09:32] VITALS: BMI 20.5
[2018-09-20 09:42] VITALS: RESP 18; O2SAT 98
[2018-09-20] MEDS ORDERED: Lidocaine 5% Patch TD STA (10:18)
--- NOTE | 2018-09-20 10:21 | ED PDOC ---
Arrival/HPI - General Chief Complaint: Back Pain Time Seen by Provider: 09/20/18 09:49 Historian: Patient - History of Present Illness Narrative History of Present Illness (Text): 09/20/18 10:57 83 year old female, whose past medical history includes CAD, COPD, hypertension, diabetes, hypothyroidism, hypercholesterolemia, neuropathy, appendectomy, ovarian cyst, and back surgery for r/t herniated disc in 1988, presents to ED c/ o exacerbation of right sided back pain with sciatica and nausea. Has been experiencing nausea for several weeks but worsened yesterday. Last saw GI doctor Dr. Pierce last week, who told her that her nausea is secondary to gas, constipation, and GERD. Her back pain is typical of her chronic pain, but states she had more pain than usual yesterday when trying to play with her cat. Takes tramadol for pain, last 8am. States her PMD is Loren Perry NP, who visits her regularly at home. States she is compliant with her medications, and is supposed to be on insulin but no one ever set her up with supplies. Denies fevers, chills, chest pain, SOB, abdominal pain, neck pain/stiffness, saddle anesthesia, bowel/bladder incontinence, numbness, weakness, paresthesias, or any other associated symptoms. Past Medical History - Provider Review Nursing Documentation Reviewed: Yes - Infectious Disease Hx of Infectious Diseases: None - Tetanus Immunization Tetanus Immunization: Unknown - Cardiac Hx Cardiac Disorders: Yes Hx Hypertension: Yes - Pulmonary Hx Chronic Obstructive Pulmonary Disease (COPD): Yes - Neurological Hx Neurological Disorder: Yes (NEUROPATHY) Other/Comment: hand tremors - HEENT Hx HEENT Disorder: Yes Hx Cataracts: Yes (WITH SURGERY) - Renal Hx Renal Failure: Yes (CKD III) - Endocrine/Metabolic Hx Diabetes Mellitus Type 2: Yes - Hematological/Oncological Hx Blood Disorders: Yes Hx Anemia: Yes - Integumentary Hx Dermatological Disorder: No - Musculoskeletal/Rheumatological Hx Musculoskeletal Disorders: Yes (RADICULOPATHY) Hx Falls: Yes Hx Unsteady Gait: Yes - Gastrointestinal Hx Gastrointestinal Disorders: Yes (gastroparesis/ constipation) Hx Gastroesophageal Reflux: Yes - Genitourinary/Gynecological Hx Genitourinary Disorders: Yes (HAS CYST IN RIGHT OVARY) Hx Urinary Tract Infection: Yes - Psychiatric Hx Psychophysiologic Disorder: Yes Hx Anxiety: Yes Hx Depression: No Hx Emotional Abuse: No Hx Physical Abuse: No Hx Substance Use: No - Surgical History Hx Appendectomy: Yes Hx Orthopedic Surgery: Yes (R/T HERNIATED DISC) - Anesthesia Hx Anesthesia: Yes Hx Anesthesia Reactions: No Hx Malignant Hyperthermia: No - Suicidal Assessment Feels Threatened In Home Enviroment: No Family/Social History - Physician Review Nursing Documentation Reviewed: Yes Family/Social History: No Known Family HX Smoking Status: Former Smoker Hx Alcohol Use: No Hx Substance Use: No Hx Substance Use Treatment: No Allergies/Home Meds Allergies/Adverse Reactions: Allergies naproxen Allergy (Verified 09/20/18 09:42) RASH Home Medications: Home Meds Medication Instructions Recorded Confirmed Aspirin [Aspirin Chewable] 81 mg PO DAILY 08/28/16 02/07/18 Levothyroxine [Synthroid] 100 mcg PO ACB 08/28/16 02/07/18 Omeprazole 40 mg PO DAILY 08/28/16 02/07/18 traMADol [Ultram] 50 mg PO TID PRN 01/25/17 02/07/18 Gabapentin [Neurontin] 300 mg PO TID 08/30/17 02/07/18 GlipiZIDE [Glucotrol] 10 mg PO BID 08/30/17 02/07/18 Metoprolol Tartrate [Lopressor] 25 mg PO BID 08/30/17 02/07/18 Mirtazapine [Remeron] 15 mg PO HS 08/30/17 02/07/18 Multivitamin [Honey Bears] 1 tab PO DAILY 08/30/17 02/07/18 Zolpidem [Ambien] 10 mg pe PO HS 08/30/17 02/07/18 ALPRAZolam [Xanax] 0.25 mg PO HS 02/07/18 02/07/18 Lisinopril [Zestril] 10 mg PO DAILY 02/07/18 02/07/18 Review of Systems - Review of Systems Constitutional: Normal. absent: Fevers Eyes: Normal. absent: Vision Changes ENT: Normal. absent: Sore Throat, Epistaxis Respiratory: Normal. absent: SOB, Cough Cardiovascular: Normal. absent: Chest Pain, Palpitations Gastrointestinal: Nausea. absent: Abdominal Pain, Stool Changes, Vomiting, Appetite Changes Genitourinary Female: Normal. absent: Dysuria, Frequency Musculoskeletal: Back Pain, Other (leg pain). absent: Neck Pain Skin: Normal. absent: Rash Neurological: Normal. absent: Headache, Dizziness Endocrine: Normal Hemo/Lymphatic: Normal Psychiatric: Normal Physical Exam Vital Signs Reviewed: Yes Vital Signs Temp Pulse Resp BP Pulse Ox 09/20/18 09:33 97.6 F 83 18 191/84 H 98 Temperature: Afebrile Blood Pressure: Normal Pulse: Regular Respiratory Rate: Normal Appearance: Positive for: Well-Appearing, Non-Toxic, Comfortable Pain Distress: None Mental Status: Positive for: Alert and Oriented X 3 - Systems Exam Head: Present: Atraumatic, Normocephalic Pupils: Present: PERRL Extroacular Muscles: Present: EOMI Conjunctiva: Present: Normal Mouth: Present: Moist Mucous Membranes Neck: Present: Normal Range of Motion. No: MIDLINE TENDERNESS, Paraspinal Tenderness Respiratory/Chest: Present: Clear to Auscultation, Good Air Exchange. No: Re spiratory Distress, Accessory Muscle Use Cardiovascular: Present: Regular Rate and Rhythm, Normal S1, S2. No: Murmurs Abdomen: Present: Normal Bowel Sounds. No: Tenderness, Distention, Peritoneal Signs, Rebound, Guarding Back: Present: Normal Inspection, Paraspinal Tenderness (over right SI joint), Pain with Leg Raise (bilateral, R>L). No: CVA Tenderness, Midline Tenderness Upper Extremity: Present: Normal Inspection, Normal ROM, NORMAL PULSES, Neurovascularly Intact, Capillary Refill < 2s. No: Cyanosis, Edema, Tenderness, Swelling, Temperature Abnormalties Lower Extremity: Present: NORMAL PULSES, Normal ROM, Neurovascularly Intact, Capillary Refill < 2 s. No: Edema, Swelling, Deformity, Temperature Abnormalties Neurological: Present: GCS=15, CN II-XII Intact, Speech Normal, Motor Func Grossly Intact Skin: Present: Warm, Dry, Normal Color. No: Rashes Psychiatric: Present: Alert, Oriented x 3, Normal Insight, Normal Concentration, Normal Affect, Normal Mood Medical Decision Making ED Course and Treatment: 09/20/18 10:43 Initial Plan: * Fingerstick glucose * EKG * CBC, CMP * UA * Lipase * Troponin * Tylenol * Lidoderm patch Secondary to complaints of nausea, will obtain basic labs and ekg 10:50 Blood sugar 415, will order VBG to r/o DKA. IVF ordered. EKG shows NSR at 64, no STEMI 11:29 Notified of lactic acid of 4.8. Vitals stable, pt afebrile, normal WBC. No indication for code sepsis. Will continue IVF. Pt not in DKA based on laboratory findings. 12:07 Repeat blood sugar [address] Arvizu recommends Kayexelate to reduce potassium, with a repeat BMP. 14:45 Repeat potassium 5.0, Repeat lactate 2.8, trending down. Case discussed with ED attending, Dr. Arvizu, who recommends discharge home. Pt reports resolution of pain and nausea with medications. Pt is well appearing, comfortable, with stable vital signs, improved labs, established followup, and no physical complaints. Advised PMD followup. 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 Ortho referral and wrist brace provided. Diagnostic testing results and plan of care discussed with patient. Strict instructions given regarding prescription use, importance of followup, and signs/symptoms to return to ER including worsening pain, saddle anesthesia, bowel/bladder incontinence or any other new/worsening symptoms. Pt verbalized understanding of discussion. Patient is A&Ox3, ambulating with steady gait, with vital signs stable for discharge. - Lab Interpretations Lab Results: 09/20/18 10:20 09/20/18 10:20 Lab Results 09/20/18 11:15: pO2 82 H, VBG pH 7.31 L, VBG pCO2 50.0, VBG HCO3 25.2, VBG Total CO2 26.7, VBG O2 Sat (Calc) 94.3 H, VBG Base Excess -1.7 L, VBG Potassium 5.4 H , Glucose 403 H*, Lactate 4.8 H*, FiO2 21.0, Crit Value Called To Purvi patrick, Crit Value Called By Etq, Blood Gas Notified Time 1124, Sodium 133.0, Chloride 98.0, Venous Blood Potassium 5.4 H 09/20/18 10:49: POC Glucose (mg/dL) 415 H* 09/20/18 10:20: TSH 3rd Generation 0.96 09/20/18 10:20: Sodium 132, Potassium 5.4 H, Chloride 95 L, Carbon Dioxide 25, Anion Gap 17, BUN 13, Creatinine 1.2, Est GFR ( Amer) 52, Est GFR (Non-Af Amer) 43, Random Glucose 409 H* D, Calcium 9.1, Magnesium 1.7, Total Bilirubin 0.3, AST 32, ALT 10, Alkaline Phosphatase 86, Troponin I < 0.01, Total Protein 7.6, Albumin 3.9, Globulin 3.7, Albumin/Globulin Ratio 1.0 L 09/20/18 10:20: WBC 5.5, RBC 3.73, Hgb 10.5 L, Hct 33.6 L, MCV 90.1, MCH 28.2, MCHC 31.3, RDW 13.1, Plt Count 203, MPV 10.0, Neut % (Auto) 65.0, Lymph % (Auto) 24.5, [place] % (Auto) 4.9, Eos % (Auto) 4.9, Baso % (Auto) 0.7, Lymph # (Auto) 1.3, [place] # (Auto) 0.3, Eos # (Auto) 0.3, Baso # (Auto) 0.04, Absolute Neuts (auto) 3.56 09/20/18 10:20 09/20/18 14:00 Lab Results 09/20/18 14:44: pO2 42, VBG pH 7.27 L, VBG pCO2 59.0, VBG HCO3 27.1, VBG Total CO2 28.9 H, VBG O2 Sat (Calc) 75.6 H, VBG Base Excess -1.0 L, VBG Potassium 5.2, Glucose 222 H, Lactate 2.8 H, FiO2 21.0, Crit Value Called To Purvi patrick, Crit Value Called By Etq, Blood Gas Notified Time 1450, Sodium 138.0, Chloride 106.0, Venous Blood Potassium 5.2 09/20/18 14:00: Sodium 138, Potassium 5.0, Chloride 104, Carbon Dioxide 25, Anion Gap 15, BUN 11, Creatinine 1.0, Est GFR ( Amer) > 60, Est GFR (Non- Af Amer) 53, Random Glucose 208 H, Calcium 8.4 09/20/18 11:51: POC Glucose (mg/dL) 281 H 09/20/18 11:49: Urine Color Yellow, Urine Appearance Clear, Urine pH 7.5, Ur Specific [place] 1.020, Urine Protein 100 H, Urine Glucose (UA) >=1000, Urine Ketones Negative, Urine Blood Negative, Urine Nitrate Negative, Urine Bilirubin Negative, Urine Urobilinogen 0.2, Ur Leukocyte Esterase Negative, Urine RBC 0 - 2, Urine WBC 0 - 2, Ur Epithelial Cells 1 - 3, Urine Bacteria Few, Urine Other Fiber 09/20/18 11:32: Lipase 103 09/20/18 11:15: pO2 82 H, VBG pH 7.31 L, VBG pCO2 50.0, VBG HCO3 25.2, VBG Total CO2 26.7, VBG O2 Sat (Calc) 94.3 H, VBG Base Excess -1.7 L, VBG Potassium 5.4 H , Glucose 403 H*, Lactate 4.8 H*, FiO2 21.0, Crit Value Called To Purvi patrick, Crit Value Called By Etq, Blood Gas Notified Time 1124, Sodium 133.0, Chloride 98.0, Venous Blood Potassium 5.4 H 09/20/18 10:49: POC Glucose (mg/dL) 415 H* 09/20/18 10:20: TSH 3rd Generation 0.96 09/20/18 10:20: Sodium 132, Potassium 5.4 H, Chloride 95 L, Carbon Dioxide 25, Anion Gap 17, BUN 13, Creatinine 1.2, Est GFR ( Amer) 52, Est GFR (Non-Af Amer) 43, Random Glucose 409 H* D, Calcium 9.1, Magnesium 1.7, Total Bilirubin 0.3, AST 32, ALT 10, Alkaline Phosphatase 86, Troponin I < 0.01, Total Protein 7.6, Albumin 3.9, Globulin 3.7, Albumin/Globulin Ratio 1.0 L 09/20/18 10:20: WBC 5.5, RBC 3.73, Hgb 10.5 L, Hct 33.6 L, MCV 90.1, MCH 28.2, MCHC 31.3, RDW 13.1, Plt Count 203, MPV 10.0, Neut % (Auto) 65.0, Lymph % (Auto) 24.5, [place] % (Auto) 4.9, Eos % (Auto) 4.9, Baso % (Auto) 0.7, Lymph # (Auto) 1.3, [place] # (Auto) 0.3, Eos # (Auto) 0.3, Baso # (Auto) 0.04, Absolute Neuts (auto) 3.56 I have reviewed the lab results: Yes - EKG Interpretation EKG Interpretation (Text): Rate 64; NSR; Normal Intervals; No STEMI, nonspecific ST/T wave changes Interpreted by ED Physician: Yes Type: 12 lead EKG Disposition/Present on Arrival - Present on Arrival Any Indicators Present on Arrival: No History of DVT/PE: No History of Uncontrolled Diabetes: Yes Urinary Catheter: No History of Decub. Ulcer: No History Surgical Site Infection Following: None - Disposition Have Diagnosis and Disposition been Completed?: Yes Diagnosis: Hyperkalemia, Hyperglycemia due to type 2 diabetes mellitus, Sciatica Disposition: HOME/ ROUTINE Disposition Time: 15:30 Patient Plan: Discharge Condition: IMPROVED Discharge Instructions (ExitCare): Sciatica, Diabetes Diet , Sciatica Exercises Additional Instructions: Take diabetes medication as prescribed Take pepcid every 12 hours as needed for indigestion Tramadol as needed for pain Lidoderm patches daily, 12 hours on 12 hours off Followup with GI within 2 days Followup with orthopedic within 2 days Followup with primary within 2 days Return to ER with any new/worsening symptoms Prescriptions: Famotidine [Pepcid] 20 mg PO Q12 PRN #30 tab PRN Reason: Indigestion Lidocaine 5% [Lidoderm] 1 ea TD DAILY PRN #30 patch PRN Reason: Pain, Mild (1-3) Referrals: Lucho Pierce MD [Staff Provider] - Follow up with primary Loren Perry NP [Nurse Practitioner] - Follow up with primary Tom Aguayo DO [Staff Provider] - Follow up with primary Forms: [employer] (Thai), WORK NOTE
[2018-09-20 10:47] LABS: BASO # 0.04 K/mm3 (0.0-2.0); BASO % 0.7 % (0.0-3.0); EOS # 0.3 (0.0-0.7); EOS % 4.9 % (1.5-5.0); HEMOGLOBIN 10.5 g/dL (12.0-16.0); LYMPH # 1.3 (1.2-3.4); LYMPH % 24.5 % (22.0-35.0); MEAN CELL VOLUME 90.1 fl (80.0-105.0); MEAN CORPUSCULAR HEMOGLOBIN 28.2 pg (25.0-35.0); MEAN CORPUSCULAR HGB CONC 31.3 g/dl (31.0-37.0); MONO # 0.3 (0.1-0.6); MONO % 4.9 % (1.0-6.0); RBC 3.73 10^6/uL (3.5-6.1); RED CELL DISTRIBUTION WIDTH 13.1 % (11.5-14.5); WHITE BLOOD COUNT 5.5 10^3/uL (4.5-11.0)
[2018-09-20] MEDS ORDERED: Sodium Chloride 0.9% 1,000 ML IV STA ×2 (10:54→11:04)
[2018-09-20 11:11] LABS: ALBUMIN 3.9 g/dL (3.0-4.8); ALT/SGPT 10 U/L (7-56); AST/SGOT 32 U/L (14-36); BLOOD UREA NITROGEN 13 mg/dL (7-21); CALCIUM 9.1 mg/dL (8.4-10.5); GFR NON-AFRICAN AMERICAN 43
[2018-09-20 11:15] LABS: TROPONIN I < 0.01 ng/mL
[2018-09-20 11:24] LABS: VENOUS BLOOD GAS BASE EXCESS -1.7 mmol/L (0.0-2.0); VENOUS BLOOD GAS PO2 82 mm/Hg (30-55); VENOUS BLOOD PH 7.31 (7.32-7.43)
[2018-09-20 12:07] LABS: PH,URINE 7.5 (4.7-8.0); URINE BILIRUBIN NEGATIVE (NEGATIVE); URINE BLOOD NEGATIVE (NEGATIVE); URINE GLUCOSE (UA) >=1000 mg/dL (NEGATIVE); URINE LEUKOCYTE ESTERASE NEGATIVE Leu/uL (NEGATIVE); URINE PROTEIN 100 mg/dL (<30 mg/dL); URINE UROBILINOGEN 0.2 E.U./dL (<1 E.U./dL)
[2018-09-20 12:16] LABS: URINE APPEARANCE CLEAR (CLEAR); URINE COLOR YELLOW (YELLOW)
[2018-09-20 12:20] LABS: URINE BACTERIA FEW /hpf; URINE RBC 0 - 2 /hpf (0-2); URINE WBC 0 - 2 /hpf (0-6)
[2018-09-20] MEDS ORDERED: Sodium Chloride 0.9% 1,000 ML IV SCH (13:15)
[2018-09-20 14:47] LABS: BLOOD UREA NITROGEN 11 mg/dL (7-21); CALCIUM 8.4 mg/dL (8.4-10.5); GFR NON-AFRICAN AMERICAN 53
[2018-09-20 14:50] LABS: VENOUS BLOOD GAS PO2 42 mm/Hg (30-55); VENOUS BLOOD PH 7.27 (7.32-7.43)
[2018-09-20 16:02] VITALS: BP 149/59; PULSE 66; TEMP 98.1
--- NOTE | 2018-09-21 05:18 | CARD ---
APPROVED REPORT Date of service: 09/20/2018 EKG Measurement Heart [id number] <Conclusion> Sinus rhythm with premature atrial complexes Inferior infarct, age undetermined Abnormal ECG
== END 2018-09-20 16:01 | disposition home or self-care (01) ==
LOC: ED 09:31
DX: E11.65 Type 2 diabetes mellitus with hyperglycemia (principal); E87.5 Hyperkalemia; M54.30 Sciatica, unspecified side; I25.10 Atherosclerotic heart disease of native coronary artery without angina pectoris; I12.9 Hypertensive chronic kidney disease with stage 1 through stage 4 chronic kidney disease, or unspecified chronic kidney disease; N18.3 Chronic kidney disease, stage 3 (moderate); E11.22 Type 2 diabetes mellitus with diabetic chronic kidney disease; Z87.891 Personal history of nicotine dependence
CPT/HCPCS: 80053; 81001; 82803; 82948; 83690; 83735; 84443; 84484; 85025; 87086; 87181; 93005; 96361; 96374; 99285; J2405; J7030

== ENCOUNTER 2018-10-21 11:53 | Outpatient (CLI) | payer MEDICARE | END 2018-10-21 11:54 | disposition home or self-care (01) | LOC: RAD 11:53 ==

== ENCOUNTER 2018-10-26 13:08 | Emergency (ER) | payer MEDICARE ==
[2018-10-26 13:35] VITALS: RESP 18; TEMP 98.1
[2018-10-26 13:56] VITALS: BMI 22.3
[2018-10-26] MEDS ORDERED: Oxycodone/Acetaminophen 5/325 mg Tab PO STA (14:05)
[2018-10-26] MEDS ORDERED: Lidocaine 5% Patch TD ONE (14:30)
--- NOTE | 2018-10-26 15:12 | ED PDOC ---
Arrival/HPI - General Chief Complaint: Back Pain Time Seen by Provider: 10/26/18 13:51 Historian: Patient - History of Present Illness Narrative History of Present Illness (Text): 10/26/18 15:09 A 83 year old female, whose past medical history includes hypertension and COPD, presents to the emergency department complaining of worsening lower back and right hip pain, radiating to right leg. Patient reports experiencing a numbing sensation to area where pain occurs. States she has been taking Tramadol for pain, noting sometimes it works for the pain. Patient notes also experiencing head/neck pain with movement, however denies any fall/trauma, or any other complaints at this time. Past Medical History - Provider Review Nursing Documentation Reviewed: Yes - Infectious Disease Hx of Infectious Diseases: None - Tetanus Immunization Tetanus Immunization: Unknown - Reproductive Menopause: No - Cardiac Hx Cardiac Disorders: Yes Hx Hypertension: Yes - Pulmonary Hx Chronic Obstructive Pulmonary Disease (COPD): Yes - Neurological Hx Neurological Disorder: Yes (NEUROPATHY) Other/Comment: hand tremors - HEENT Hx HEENT Disorder: Yes Hx Cataracts: Yes (WITH SURGERY) - Renal Hx Renal Failure: Yes (CKD III) - Endocrine/Metabolic Hx Diabetes Mellitus Type 2: Yes - Hematological/Oncological Hx Blood Disorders: Yes Hx Anemia: Yes - Integumentary Hx Dermatological Disorder: No - Musculoskeletal/Rheumatological Hx Musculoskeletal Disorders: Yes (RADICULOPATHY) Hx Falls: Yes Hx Unsteady Gait: Yes - Gastrointestinal Hx Gastrointestinal Disorders: Yes (gastroparesis/ constipation) Hx Gastroesophageal Reflux: Yes - Genitourinary/Gynecological Hx Genitourinary Disorders: Yes (HAS CYST IN RIGHT OVARY) Hx Urinary Tract Infection: Yes - Psychiatric Hx Psychophysiologic Disorder: Yes Hx Anxiety: Yes Hx Depression: No Hx Emotional Abuse: No Hx Physical Abuse: No Hx Substance Use: No - Surgical History Hx Appendectomy: Yes Hx Orthopedic Surgery: Yes (R/T HERNIATED DISC) - Anesthesia Hx Anesthesia: Yes Hx Anesthesia Reactions: No Hx Malignant Hyperthermia: No - Suicidal Assessment Feels Threatened In Home Enviroment: No Family/Social History - Physician Review Nursing Documentation Reviewed: Yes Family/Social History: No Known Family HX Smoking Status: Former Smoker Hx Alcohol Use: No Hx Substance Use: No Hx Substance Use Treatment: No Allergies/Home Meds Allergies/Adverse Reactions: Allergies naproxen Allergy (Verified 09/20/18 09:42) RASH Home Medications: Home Meds Medication Instructions Recorded Confirmed Aspirin [Aspirin Chewable] 81 mg PO DAILY 08/28/16 02/07/18 Levothyroxine [Synthroid] 100 mcg PO ACB 08/28/16 02/07/18 Omeprazole 40 mg PO DAILY 08/28/16 10/26/18 traMADol [Ultram] 50 mg PO TID PRN 01/25/17 10/26/18 Gabapentin [Neurontin] 300 mg PO TID 08/30/17 02/07/18 GlipiZIDE [Glucotrol] 10 mg PO BID 08/30/17 02/07/18 Metoprolol Tartrate [Lopressor] 25 mg PO BID 08/30/17 10/26/18 Mirtazapine [Remeron] 15 mg PO HS 08/30/17 10/26/18 Multivitamin [Honey Bears] 1 tab PO DAILY 08/30/17 10/26/18 Zolpidem [Ambien] 10 mg pe PO HS 08/30/17 10/26/18 ALPRAZolam [Xanax] 0.25 mg PO HS 02/07/18 02/07/18 Lisinopril [Zestril] 10 mg PO DAILY 02/07/18 10/26/18 Review of Systems - Physician Review All systems were reviewed & negative as marked: Yes - Review of Systems Constitutional: absent: Other (no fall/trauma) Musculoskeletal: Back Pain (lower back pain and hip pain radiating to right leg), Neck Pain (and head pain with movement) Physical Exam Vital Signs Reviewed: Yes Vital Signs Temp Pulse Resp BP Pulse Ox 10/26/18 13:30 98.1 F 101 H 18 153/83 H 153 H 10/26/18 13:08 97.5 F L 91 H 18 125/91 H 98 Temperature: Afebrile Blood Pressure: Normal Pulse: Regular Respiratory Rate: Normal Appearance: Positive for: Well-Appearing, Non-Toxic, Comfortable Pain Distress: None Mental Status: Positive for: Alert and Oriented X 3 - Systems Exam Head: Present: Atraumatic, Normocephalic Pupils: Present: PERRL Extroacular Muscles: Present: EOMI Conjunctiva: Present: Normal Mouth: Present: Moist Mucous Membranes Neck: Present: Normal Range of Motion Respiratory/Chest: Present: Clear to Auscultation, Good Air Exchange. No: Respiratory Distress, Accessory Muscle Use Cardiovascular: Present: Regular Rate and Rhythm, Normal S1, S2. No: Murmurs Abdomen: No: Tenderness, Distention, Peritoneal Signs Back: Present: Paraspinal Tenderness (right SI joint tenderness) Upper Extremity: Present: Normal Inspection. No: Cyanosis, Edema Lower Extremity: Present: Normal Inspection, Other (straight leg test negative; no ecchymosis present to hip). No: Edema Neurological: Present: GCS=15, CN II-XII Intact, Speech Normal Skin: Present: Warm, Dry, Normal Color. No: Rashes Psychiatric: Present: Alert, Oriented x 3, Normal Insight, Normal Concentration Medical Decision Making ED Course and Treatment: 10/26/18 15:09 Impression: 83 year old female with worsening lower back and right hip pain radiating down to right leg. Plan: -- Lidoderm -- Percocet -- Reassess and disposition Progress Notes: - EKG Interpretation EKG Interpretation (Text): 10/26/18 13:54 EKG: Ordered, reviewed, and independently interpreted the EKG. Rate : 87 BPM Rhythm : NSR Interpretation : No ST elevations, no T-wave inversions. Comparison : No previous EKG for comparison. - Medication Orders Current Medication Orders: Discontinued Medications Lidocaine (Lidoderm) 1 ea TD ONCE ONE Stop: 10/26/18 14:31 Last Admin: 10/26/18 14:40 Dose: 1 ea MAR Transdermal Patch Site Document 10/26/18 14:40 BB (Rec: 10/26/18 14:[address] [facility] [place]-[id number]) Transdermal Patch Site Transdermal Patch Site Right Hip Oxycodone/Acetaminophen (Percocet 5/325 Mg Tab) 1 tab PO STAT STA Stop: 10/26/18 14:06 Last Admin: 10/26/18 14:38 Dose: 1 tab MAR Pain Assessment Document 10/26/18 14:38 BB (Rec: 10/26/18 14:[address] [facility] [place]-[id number]) Pain Reassessment Is this a pain reassessment? No Sleep Is patient sleeping during reassessment? No Presence of Pain Presence of Pain Yes Pain Scale Used Protocol: PSCALES Pain Scale Used Numeric Location Left, Right or Bilateral Right Pain Location Body Site Hip Description Description Constant Intensity of Pain at present 7 Pain Behavior Grasping Site Rubbing Site Restlessness - Scribe Statement The provider has reviewed the documentation as recorded by the Scribe Treva Calhoun Provider Scribe Attestation: All medical record entries made by the Scribe were at my direction and personally dictated by me. I have reviewed the chart and agree that the record accurately reflects my personal performance of the history, physical exam, medical decision making, and the department course for this patient. I have also personally directed, reviewed, and agree with the discharge instructions and disposition. Disposition/Present on Arrival - Present on Arrival Any Indicators Present on Arrival: Yes History of DVT/PE: No History of Uncontrolled Diabetes: Yes Urinary Catheter: No History of Decub. Ulcer: No History Surgical Site Infection Following: None - Disposition Have Diagnosis and Disposition been Completed?: Yes Diagnosis: Sciatica Disposition: HOME/ ROUTINE Disposition Time: 15:34 Patient Plan: Discharge Condition: IMPROVED Discharge Instructions (ExitCare): Sciatica (DC) Print Language: BENGALI Additional Instructions: All medical record entries made by the Scribe were at my direction and personally dictated by me. I have reviewed the chart and agree that the record accurately reflects my personal performance of the history, physical exam, medical decision making, and the department course for this patient. I have also personally directed, reviewed, and agree with the discharge instructions and disposition. Please follow up with your PCP in 1 week Referrals: Annie Servin MD [Medical Doctor] - Follow up with primary [facility] [place] [Outside] - Follow up with primary Forms: [employer] ([place])
[2018-10-26 16:16] VITALS: BP 151/83; PULSE 79; O2SAT 99
--- NOTE | 2018-10-27 19:13 | CARD ---
APPROVED REPORT Date of service: 10/26/2018 EKG Measurement Heart [id number] <Conclusion> Normal sinus rhythm Left axis deviation Inferior infarct, age undetermined Abnormal ECG
== END 2018-10-26 16:25 | disposition home or self-care (01) ==
LOC: ED 13:08
DX: M54.30 Sciatica, unspecified side (principal); I12.9 Hypertensive chronic kidney disease with stage 1 through stage 4 chronic kidney disease, or unspecified chronic kidney disease; N18.3 Chronic kidney disease, stage 3 (moderate); E11.9 Type 2 diabetes mellitus without complications; J44.9 Chronic obstructive pulmonary disease, unspecified; Z87.891 Personal history of nicotine dependence

== ENCOUNTER 2018-11-14 11:06 | Emergency (ER) | payer MEDICARE ==
[2018-11-14 11:17] VITALS: BMI 21.9
[2018-11-14 11:18] VITALS: RESP 18; TEMP 97.5
--- NOTE | 2018-11-14 11:34 | ED PDOC ---
Arrival/HPI - General Chief Complaint: Back Pain Time Seen by Provider: 11/14/18 11:10 Historian: Patient - History of Present Illness Time/Duration: Other (This morning) Symptom Onset: Gradual Symptom Course: Unchanged Quality: Aching Severity Level: Moderate Activities at Onset: Rest Associated Symptoms (Text): 11/14/18 11:32 Patient complains of chronic low back pain with radiation to bilateral lower extremities, but especially the right. No numbness tingling or paresthesias. There is generalized, but no focal weakness. She denies any injury or trauma. The pain is chronic in nature. No abdominal pain nausea vomiting or diarrhea. No genitourinary symptoms. She states that she took her tramadol this morning, but it did not help. Her pain is no different from usual. She had an MRI of her lumbar spine and right hip on February 07 of last year which were unremarkable. Seen by Dr. Pierce in the office yesterday for chronic abdominal discomfort and scheduled for an ultrasound next week. She is not complaining of her abdomen today. Past Medical History - Infectious Disease Hx of Infectious Diseases: None - Tetanus Immunization Tetanus Immunization: Unknown - Cardiac Hx Cardiac Disorders: Yes Hx Hypertension: Yes - Pulmonary Hx Chronic Obstructive Pulmonary Disease (COPD): Yes - Neurological Hx Neurological Disorder: Yes (NEUROPATHY) Other/Comment: hand tremors - HEENT Hx HEENT Disorder: Yes Hx Cataracts: Yes (WITH SURGERY) - Renal Hx Renal Failure: Yes (CKD III) - Endocrine/Metabolic Hx Diabetes Mellitus Type 2: Yes - Hematological/Oncological Hx Blood Disorders: Yes Hx Anemia: Yes - Integumentary Hx Dermatological Disorder: No - Musculoskeletal/Rheumatological Hx Musculoskeletal Disorders: Yes (RADICULOPATHY) Hx Falls: Yes Hx Unsteady Gait: Yes - Gastrointestinal Hx Gastrointestinal Disorders: Yes (gastroparesis/ constipation) Hx Gastroesophageal Reflux: Yes - Genitourinary/Gynecological Hx Genitourinary Disorders: Yes (HAS CYST IN RIGHT OVARY) Hx Urinary Tract Infection: Yes - Psychiatric Hx Psychophysiologic Disorder: Yes Hx Anxiety: Yes Hx Depression: No Hx Emotional Abuse: No Hx Physical Abuse: No Hx Substance Use: No - Surgical History Hx Appendectomy: Yes Hx Orthopedic Surgery: Yes (R/T HERNIATED DISC) - Anesthesia Hx Anesthesia: Yes Hx Anesthesia Reactions: No Hx Malignant Hyperthermia: No - Suicidal Assessment Feels Threatened In Home Enviroment: No Family/Social History - Physician Review Nursing Documentation Reviewed: Yes Family/Social History: Unknown Family HX Smoking Status: Former Smoker Hx Alcohol Use: No Hx Substance Use: No Hx Substance Use Treatment: No Allergies/Home Meds Allergies/Adverse Reactions: Allergies naproxen Allergy (Verified 11/14/18 11:17) RASH Home Medications: Home Meds Medication Instructions Recorded Confirmed Aspirin [Aspirin Chewable] 81 mg PO DAILY 08/28/16 02/07/18 Levothyroxine [Synthroid] 100 mcg PO ACB 08/28/16 02/07/18 Omeprazole 40 mg PO DAILY 08/28/16 10/26/18 traMADol [Ultram] 50 mg PO TID PRN 01/25/17 10/26/18 Gabapentin [Neurontin] 300 mg PO TID 08/30/17 02/07/18 GlipiZIDE [Glucotrol] 10 mg PO BID 08/30/17 02/07/18 Metoprolol Tartrate [Lopressor] 25 mg PO BID 08/30/17 10/26/18 Mirtazapine [Remeron] 15 mg PO HS 08/30/17 10/26/18 Multivitamin [Honey Bears] 1 tab PO DAILY 08/30/17 10/26/18 Zolpidem [Ambien] 10 mg pe PO HS 08/30/17 10/26/18 ALPRAZolam [Xanax] 0.25 mg PO HS 02/07/18 02/07/18 Lisinopril [Zestril] 10 mg PO DAILY 02/07/18 10/26/18 Review of Systems - Physician Review All systems were reviewed & negative as marked: Yes - Review of Systems Constitutional: Fatigue. absent: Fevers Respiratory: absent: SOB, Cough Cardiovascular: absent: Chest Pain, Palpitations, Syncope Gastrointestinal: absent: Abdominal Pain, Diarrhea, Vomiting Genitourinary Female: absent: Hematuria Neurological: absent: Headache, Dizziness, Focal Weakness Physical Exam Vital Signs Temp Pulse Resp BP Pulse Ox 11/14/18 11:17 97.5 F L 91 H 18 174/89 H 98 Temperature: Afebrile Blood Pressure: Hypertensive Pulse: Regular Respiratory Rate: Normal Appearance: Positive for: Well-Appearing, Non-Toxic, Uncomfortable, Other (Chronically ill-appearing.) Pain Distress: None Mental Status: Positive for: Alert and Oriented X 3 - Systems Exam Head: Present: Atraumatic, Normocephalic Respiratory/Chest: Present: Clear to Auscultation, Good Air Exchange. No: Respiratory Distress, Accessory Muscle Use Cardiovascular: Present: Regular Rate and Rhythm, Normal S1, S2. No: Murmurs Abdomen: No: Tenderness, Distention, Peritoneal Signs, Rebound, Guarding Back: Present: Normal Inspection, Paraspinal Tenderness. No: CVA Tenderness, Midline Tenderness, Pain with Leg Raise, Decubitus Ulcer Lower Extremity: Present: Normal Inspection. No: Edema Neurological: Present: GCS=15, CN II-XII Intact, Speech Normal, Motor Func Grossly Intact, Normal Cerebellar Funct, Other (Walks with a walker) Skin: Present: Warm, Dry, Normal Color. No: Rashes Psychiatric: Present: Alert, Oriented x 3, Normal Insight, Normal Concentration Medical Decision Making ED Course and Treatment: 11/14/18 11:34 No injury or trauma. Her pain is chronic in nature. Therefore, I do not feel that any imaging is indicated at this time. We will treat her symptomatically with pain medication. 11/14/18 12:27 Pain has improved. Requesting Tylenol with codeine.. - Medication Orders Current Medication Orders: Ketorolac Tromethamine (Toradol) 15 mg IM ONCE ONE Stop: 11/14/18 11:31 Disposition/Present on Arrival - Present on Arrival Any Indicators Present on Arrival: No History of DVT/PE: No History of Uncontrolled Diabetes: Yes Urinary Catheter: No History of Decub. Ulcer: No History Surgical Site Infection Following: None - Disposition Have Diagnosis and Disposition been Completed?: Yes Diagnosis: Chronic low back pain Disposition: HOME/ ROUTINE Disposition Time: 12:28 Patient Plan: Discharge Condition: IMPROVED Discharge Instructions (ExitCare): Low Back Pain in Adults Additional Instructions: Moist heat. Follow-up with PMD. Follow-up in ER as needed. Prescriptions: Acetaminophen with Codeine [Tylenol with Codeine #3 Tablet] 1 each PO Q6 #10 tablet Forms: [employer] ([place])
[2018-11-14 12:47] VITALS: BP 164/75; PULSE 89; O2SAT 100
== END 2018-11-14 12:44 | disposition home or self-care (01) ==
LOC: ED 11:06
DX: M54.5 Low back pain (principal); G89.29 Other chronic pain
CPT/HCPCS: 96372; 99283; J1885

== ENCOUNTER 2018-12-04 18:33 | Inpatient (IN) | payer MEDICARE ==
--- NOTE | 2018-12-04 19:12 | ED PDOC ---
Arrival/HPI <Reji Barreto - Last Filed: 12/04/18 20:13> - General Historian: Patient - History of Present Illness Narrative History of Present Illness (Text): 12/04/18 19:13 Patient is an 83 yo female with poorly controlled T2DM, HTN, GERD, CKD, hypothyroidism, iron deficiency anemia, anxiety, essential tremor, and chronic back pain who presents with nausea and vomiting. Patient states that she started vomiting early this morning. She took her medications, but after that, she has not been able to keep anything down. She states vomit is bright yellow and clear mucus. She denies blood. She has vomited multiple times, most recently about 30 minutes ago. She is presently feeling nauseated. She denies abdominal pain and diarrhea. She says this has happened before, most recently about 2 months ago. She denies headache, chest pain, SOB, palpitations. Time/Duration: Other (12 hours) Symptom Course: Unchanged <Honey Munoz - Last Filed: 12/04/18 23:21> - General Chief Complaint: GI Problem Time Seen by Provider: 12/04/18 19:09 Past Medical History - Provider Review Nursing Documentation Reviewed: Yes - Infectious Disease Hx of Infectious Diseases: None - Tetanus Immunization Tetanus Immunization: Unknown - Cardiac Hx Cardiac Disorders: Yes Hx Hypertension: Yes - Pulmonary Hx Chronic Obstructive Pulmonary Disease (COPD): Yes - Neurological Hx Neurological Disorder: Yes (NEUROPATHY) Other/Comment: hand tremors - HEENT Hx HEENT Disorder: Yes Hx Cataracts: Yes (WITH SURGERY) - Renal Hx Renal Failure: Yes (CKD III) - Endocrine/Metabolic Hx Diabetes Mellitus Type 2: Yes - Hematological/Oncological Hx Blood Disorders: Yes Hx Anemia: Yes - Integumentary Hx Dermatological Disorder: No - Musculoskeletal/Rheumatological Hx Musculoskeletal Disorders: Yes (RADICULOPATHY) Hx Falls: Yes Hx Unsteady Gait: Yes - Gastrointestinal Hx Gastrointestinal Disorders: Yes (gastroparesis/ constipation) Hx Gastroesophageal Reflux: Yes - Genitourinary/Gynecological Hx Genitourinary Disorders: Yes (HAS CYST IN RIGHT OVARY) Hx Urinary Tract Infection: Yes - Psychiatric Hx Psychophysiologic Disorder: Yes Hx Anxiety: Yes Hx Depression: No Hx Emotional Abuse: No Hx Physical Abuse: No Hx Substance Use: No - Surgical History Hx Appendectomy: Yes Hx Orthopedic Surgery: Yes (R/T HERNIATED DISC) - Anesthesia Hx Anesthesia: Yes Hx Anesthesia Reactions: No Hx Malignant Hyperthermia: No - Suicidal Assessment Feels Threatened In Home Enviroment: No <Honey Munoz - Last Filed: 12/04/18 23:21> Family/Social History - Physician Review Nursing Documentation Reviewed: Yes Family/Social History: Unknown Family HX Smoking Status: Former Smoker Hx Alcohol Use: No Hx Substance Use: No Hx Substance Use Treatment: No <Honey Munoz - Last Filed: 12/04/18 23:21> Allergies/Home Meds <Reji Barreto - Last Filed: 12/04/18 20:13> <Honey Munoz - Last Filed: 12/04/18 23:21> Allergies/Adverse Reactions: Allergies naproxen Allergy (Verified 11/14/18 11:17) RASH Home Medications: Home Meds Medication Instructions Recorded Confirmed Aspirin [Aspirin Chewable] 81 mg PO DAILY 08/28/16 02/07/18 Levothyroxine [Synthroid] 100 mcg PO ACB 08/28/16 02/07/18 Omeprazole 40 mg PO DAILY 08/28/16 10/26/18 traMADol [Ultram] 50 mg PO TID PRN 01/25/17 10/26/18 Gabapentin [Neurontin] 300 mg PO TID 08/30/17 02/07/18 GlipiZIDE [Glucotrol] 10 mg PO BID 08/30/17 02/07/18 Metoprolol Tartrate [Lopressor] 25 mg PO BID 08/30/17 10/26/18 Mirtazapine [Remeron] 15 mg PO HS 08/30/17 10/26/18 Multivitamin [Honey Bears] 1 tab PO DAILY 08/30/17 10/26/18 Zolpidem [Ambien] 10 mg pe PO HS 08/30/17 10/26/18 ALPRAZolam [Xanax] 0.25 mg PO HS 02/07/18 02/07/18 Lisinopril [Zestril] 10 mg PO DAILY 02/07/18 10/26/18 Review of Systems - Review of Systems Constitutional: absent: Weight Change, Fevers Eyes: absent: Vision Changes ENT: absent: Hearing Changes, Tinnitus Respiratory: absent: SOB, Cough Cardiovascular: absent: Chest Pain, Palpitations, Edema Gastrointestinal: Nausea, Vomiting. absent: Abdominal Pain, Constipation, Diarrhea Musculoskeletal: Back Pain (chronic) Skin: absent: Rash, Pruritis, Skin Lesions Neurological: absent: Headache, Dizziness, Focal Weakness Endocrine: absent: Diaphoresis Hemo/Lymphatic: absent: Adenopathy Psychiatric: Anxiety <Honey Munoz - Last Filed: 12/04/18 23:21> Physical Exam Vital Signs Temp Pulse Resp Pulse Ox 12/04/18 19:08 97.5 F L 70 22 100 <Tommy Barretoyl - Last Filed: 12/04/18 20:13> Vital Signs Reviewed: Yes Vital Signs Temp Pulse Resp Pulse Ox 12/04/18 19:08 97.5 F L 70 22 100 Temperature: Afebrile Blood Pressure: Normal Pulse: Regular Respiratory Rate: Normal Appearance: Positive for: Non-Toxic, Comfortable Pain Distress: None Mental Status: Positive for: Alert and Oriented X 3 - Systems Exam Head: Present: Atraumatic, Normocephalic Pupils: Present: PERRL Extroacular Muscles: Present: EOMI Conjunctiva: Present: Normal Mouth: Present: Moist Mucous Membranes Respiratory/Chest: Present: Clear to Auscultation, Good Air Exchange Cardiovascular: Present: Regular Rate and Rhythm, Normal S1, S2 Abdomen: Present: Normal Bowel Sounds. No: Tenderness, Distention Upper Extremity: Present: Normal Inspection Lower Extremity: Present: Normal Inspection. No: Edema Neurological: Present: GCS=15, CN II-XII Intact, Speech Normal Skin: Present: Warm, Dry, Normal Color Lymphatic: No: Cervical Adenopathy Psychiatric: Present: Alert, Oriented x 3, Normal Insight, Normal Concentration, Normal Affect, Normal Mood <Ana Munozandra - Last Filed: 12/04/18 23:21> Medical Decision Making ED Course and Treatment: 12/04/18 20:10 Insulin SC ordered. Labs pending. Signout given to Dr. Stewart who will resume the patient's care. 12/04/18 20:14 FSG [id number]. Insulin canceled. - Lab Interpretations I have reviewed the lab results: Yes - RAD Interpretation Radiology Orders: 12/04/18 19:30 CHEST PORTABLE [RAD] Stat - Medication Orders Current Medication Orders: Sodium Chloride (Sodium Chloride 0.9%) 1,000 mls @ 75 mls/hr IV .[id number] DIANA Discontinued Medications Insulin Human Regular (Humulin R) 10 units SC ONCE ONE Stop: 12/04/18 20:10 Ondansetron HCl (Zofran Inj) 4 mg IVP STAT STA Stop: 12/04/18 19:22 Pantoprazole Sodium (Protonix Inj) 40 mg IVP STAT STA Stop: 12/04/18 19:22 <Reji Barreto - Last Filed: 12/04/18 20:13> ED Course and Treatment: 12/04/18 19:26 EKG, CXR Labs Zofran, Protonix 12/04/18 21:00 CT A/P 12/04/18 22:19 Re-evaluated patient. She states she has not had any more episodes of vomiting. Explained to patient regarding abnormal labs values. Patient is agreeable to be admitted. 12/04/18 23:19 Spoke to hospitalist who accepts patient for admission. Re-evaluation Time: 22:19 Reassessment Condition: Improving,but remains with symptoms - Lab Interpretations I have reviewed the lab results: Yes Interpretation: Abnormal lab values - RAD Interpretation Narrative RAD Interpretations (Text): 12/04/18 23:20 CXR- no active disease CT A/P- diverticulosis Radiology Orders: CT A/P Order Desk Clerk: ED Physician - EKG Interpretation EKG Interpretation (Text): 12/04/18 19:32 NSR (62 bpm) No ST elevations Interpreted by ED Physician: Yes Type: 12 lead EKG <Honey Munoz - Last Filed: 12/04/18 23:21> Disposition/Present on Arrival <Reji Barreto - Last Filed: 12/04/18 20:13> - Present on Arrival Any Indicators Present on Arrival: Yes History of DVT/PE: No History of Uncontrolled Diabetes: Yes Urinary Catheter: No History of Decub. Ulcer: No History Surgical Site Infection Following: None - Disposition Have Diagnosis and Disposition been Completed?: Yes Disposition Time: 23:20 Patient Plan: Admission, Telemetry <Honey Munoz - Last Filed: 12/04/18 23:21> - Disposition Diagnosis: Hyponatremia, Nausea and vomiting, Hyperkalemia Disposition: HOSPITALIZED Condition: FAIR Forms: [employer] ([place])
[2018-12-04] MEDS ORDERED: Sodium Chloride 0.9% 1,000 ML IV SCH (19:30)
[2018-12-04] MEDS ORDERED: Insulin Regular 1 UNITS/0.01 ML ML SC ONE (20:09)
[2018-12-04] MEDS ORDERED: Bacitracin 500 Units/gm Oint Foilpak UD ONE (20:22)
[2018-12-04] MEDS: Sodium Chloride 0.9% 1,000 ML IV SCH (20:27)
[2018-12-04 20:34] LABS: BASO # 0.03 K/mm3 (0.0-2.0); BASO % 0.3 % (0.0-3.0); EOS # 0.1 (0.0-0.7); EOS % 1.5 % (1.5-5.0); HEMOGLOBIN 11.9 g/dL (12.0-16.0); LYMPH # 2.4 (1.2-3.4); LYMPH % 28.1 % (22.0-35.0); MEAN CELL VOLUME 83.1 fl (80.0-105.0); MEAN CORPUSCULAR HEMOGLOBIN 27.5 pg (25.0-35.0); MEAN CORPUSCULAR HGB CONC 33.1 g/dl (31.0-37.0); MEAN PLATELET VOLUME 9.5 fl (7.0-11.0); MONO # 0.5 (0.1-0.6); MONO % 5.2 % (1.0-6.0); RBC 4.33 10^6/uL (3.5-6.1); RED CELL DISTRIBUTION WIDTH 13.8 % (11.5-14.5); WHITE BLOOD COUNT 8.7 10^3/uL (4.5-11.0)
[2018-12-04 20:36] LABS: VENOUS BLOOD GAS BASE EXCESS -2.6 mmol/L (0.0-2.0); VENOUS BLOOD GAS PO2 21 mm/Hg (30-55); VENOUS BLOOD PH 7.32 (7.32-7.43)
[2018-12-04 20:44] LABS: ALB/GLOB RATIO 1.3 (1.1-1.8); ALBUMIN 4.3 g/dL (3.0-4.8); ALT/SGPT 18 U/L (7-56); AST/SGOT 24 U/L (14-36); BLOOD UREA NITROGEN 18 mg/dL (7-21); CALCIUM 9.3 mg/dL (8.4-10.5); GFR NON-AFRICAN AMERICAN 48
[2018-12-04 20:54] LABS: TROPONIN I < 0.01 ng/mL
[2018-12-04] MEDS ORDERED: Iohexol 350 MG/100 ML VIAL ONE (21:41)
[2018-12-04 21:42] LABS: PH,URINE 6.5 (4.7-8.0); URINE BILIRUBIN NEGATIVE (NEGATIVE); URINE BLOOD NEGATIVE (NEGATIVE); URINE GLUCOSE (UA) 500 mg/dL (NEGATIVE); URINE LEUKOCYTE ESTERASE NEGATIVE Leu/uL (NEGATIVE); URINE PROTEIN 100 mg/dL (<30 mg/dL); URINE UROBILINOGEN 0.2 E.U./dL (<1 E.U./dL)
[2018-12-04 21:43] LABS: URINE APPEARANCE CLEAR (CLEAR)
--- NOTE | 2018-12-05 00:06 | CP.PCM.HP ---
<DimaMessi - Last Filed: 12/05/18 02:11> History of Present Illness - History of Present Illness History of Present Illness: Messi Ch, PGY1 H&P for Dr. Ndiaye cc: "nausea and vomiting for x1 day with decreased food intake" Patient is an 83 yo female with poorly controlled T2DM, HTN, GERD, CKD, hypothyroidism, iron deficiency anemia, anxiety, essential tremor, and chronic back pain who presents with nausea and vomiting for one day duration with associated decreased food/water intake. Patient states that she started vomiting early this morning. She took her medications, but after that, she has not been able to keep anything down. Described vomit as bright yellow color. She denies b lood in vomit. In the ED, patient vomited multiple times. However, she felt better after receiving anti-emetics in the ED. No new foods, recent travel, sick contacts. She does not have any abdominal pain but she does say she gets bad acid reflux. Last time this happened was 2 months ago. She is not confused. She is AAOx3. However, in regards to her medical history patient is a poor historian. She denies headache, fever, chills, chest pain, SOB, palpitations, constipation/diarrhea. She mentions to commercial underwriter that her GI doctor is Dr. Pierce. At this time, she cannot recall her PMD's name. A full 12 point ROS was conducted and unremarkable except as stated above. PMD: unobtainable Pharm: [facility] ([place]); [address] PMHx: poorly controlled T2DM, HTN, GERD, CKD Stage III, hypothyroidism, iron deficiency anemia, anxiety, essential tremor, and chronic back pain PSHx: appendectomy, back surgery for r/t herniated disc in 1988 x 2 FH: brother [place], mom [place], dad - etoh/tobacco abuse, stomach cancer SH: live alone but [id number] and stepson live upstairs, who help sort her meds. Denies EtOH, smoking, illicit drug use. All: Naproxen-rash Med: see MAR Present on Admission - Present on Admission Any Indicators Present on Admission: No Review of Systems - Review of Systems All systems: reviewed and no additional remarkable complaints except (as per HPI) Past Patient History - Infectious Disease Hx of Infectious Diseases: None - Tetanus Immunizations Tetanus Immunization: Unknown - Past Social History Smoking Status: Former Smoker - CARDIAC Hx Cardiac Disorders: Yes Hx Hypertension: Yes - PULMONARY Hx Chronic Obstructive Pulmonary Disease (COPD): Yes - NEUROLOGICAL Hx Neurological Disorder: Yes (NEUROPATHY) Other/Comment: hand tremors - HEENT Hx HEENT Problems: Yes Hx Cataracts: Yes (WITH SURGERY) - RENAL Hx Renal Failure: Yes (CKD III) - ENDOCRINE/METABOLIC Hx Diabetes Mellitus Type 2: Yes - HEMATOLOGICAL/ONCOLOGICAL Hx Blood Disorders: Yes Hx Anemia: Yes - INTEGUMENTARY Hx Dermatological Problems: No - MUSCULOSKELETAL/RHEUMATOLOGICAL Hx Musculoskeletal Disorders: Yes (RADICULOPATHY) Hx Falls: Yes Hx Unsteady Gait: Yes - GASTROINTESTINAL Hx Gastrointestinal Disorders: Yes (gastroparesis/ constipation) Hx Gastroesophageal Reflux: Yes - GENITOURINARY/GYNECOLOGICAL Hx Genitourinary Disorders: Yes (HAS CYST IN RIGHT OVARY) Hx Urinary Tract Infection: Yes - PSYCHIATRIC Hx Psychophysiologic Disorder: Yes Hx Anxiety: Yes Hx Depression: No Hx Emotional Abuse: No Hx Physical Abuse: No Hx Substance Use: No - SURGICAL HISTORY Hx Appendectomy: Yes Hx Orthopedic Surgery: Yes (R/T HERNIATED DISC) - ANESTHESIA Hx Anesthesia: Yes Hx Anesthesia Reactions: No Hx Malignant Hyperthermia: No Meds Allergies/Adverse Reactions: Allergies Allergy/AdvReac Type Severity Reaction Status Date / Time naproxen Allergy RASH Verified 11/14/18 11:17 Physical Exam - Constitutional Appears: No Acute Distress - Head Exam Head Exam: ATRAUMATIC, NORMAL INSPECTION, NORMOCEPHALIC - Eye Exam Eye Exam: EOMI, Normal appearance - ENT Exam ENT Exam: Mucous Membranes Dry - Respiratory Exam Respiratory Exam: Clear to Auscultation Bilateral. absent: Chest Wall Tenderness, Rales, Rhonchi, Wheezes, Respiratory Distress - Cardiovascular Exam Cardiovascular Exam: RRR, +S1, +S2 - GI/Abdominal Exam GI & Abdominal Exam: Normal Bowel Sounds, Soft. absent: Firm, Guarding, Rebound, Rigid, Tenderness - Extremities Exam Extremities exam: Positive for: full ROM, normal capillary refill, normal inspection, pedal pulses present. Negative for: calf tenderness, joint swelling, pedal edema, tenderness - Back Exam Back exam: NORMAL INSPECTION - Neurological Exam Neurological exam: Alert, CN II-XII Intact, Oriented x3 - Psychiatric Exam Psychiatric exam: Normal Affect, Normal Mood - Skin Skin Exam: Dry, Intact, Normal Color, Warm Results - Vital Signs Recent Vital Signs: Last Vital Signs Temp 97.5 F L 12/04/18 19:08 Pulse 70 12/04/18 19:08 Resp 22 12/04/18 19:08 BP Pulse Ox 100 12/04/18 19:08 - Labs Result Diagrams: 12/04/18 20:15 12/04/18 20:15 Labs: Laboratory Results - last 24 hr 12/04/18 12/04/18 12/04/18 20:09 20:15 20:15 WBC 8.7 D RBC 4.33 Hgb 11.9 L Hct 36.0 MCV 83.1 D MCH 27.5 MCHC 33.1 RDW 13.8 Plt Count 304 MPV 9.5 Neut % (Auto) 64.9 Lymph % (Auto) 28.1 [place] % (Auto) 5.2 Eos % (Auto) 1.5 Baso % (Auto) 0.3 Lymph # (Auto) 2.4 [place] # (Auto) 0.5 Eos # (Auto) 0.1 Baso # (Auto) 0.03 Absolute Neuts (auto) 5.62 pO2 VBG pH VBG pCO2 VBG HCO3 VBG Total CO2 VBG O2 Sat (Calc) VBG Base Excess VBG Potassium Glucose Lactate FiO2 Crit Value Called To Crit Value Called By Blood Gas Notified Time Sodium 124 L Potassium 5.2 H Chloride 90 L Carbon Dioxide 20 L Anion Gap 19 BUN 18 Creatinine 1.1 Est GFR ( Amer) 58 Est GFR (Non-Af Amer) 48 POC Glucose (mg/dL) 278 H Random Glucose 293 H Calcium 9.3 Phosphorus 4.0 Magnesium 1.6 L Total Bilirubin 0.4 AST 24 ALT 18 Alkaline Phosphatase 96 Lactate Dehydrogenase 468 Total Creatine Kinase < 20 L Troponin I < 0.01 Total Protein 7.7 Albumin 4.3 Globulin 3.3 Albumin/Globulin Ratio 1.3 Venous Blood Potassium Urine Color Urine Appearance Urine pH Ur Specific Rowe Urine Protein Urine Glucose (UA) Urine Ketones Urine Blood Urine Nitrate Urine Bilirubin Urine Urobilinogen Ur Leukocyte Esterase Urine RBC Urine WBC Ur Epithelial Cells 12/04/18 12/04/18 20:25 21:15 WBC RBC Hgb Hct MCV MCH MCHC RDW Plt Count MPV Neut % (Auto) Lymph % (Auto) [place] % (Auto) Eos % (Auto) Baso % (Auto) Lymph # (Auto) [place] # (Auto) Eos # (Auto) Baso # (Auto) Absolute Neuts (auto) pO2 21 L VBG pH 7.32 VBG pCO2 46.0 VBG HCO3 23.7 VBG Total CO2 25.1 VBG O2 Sat (Calc) 30.6 L VBG Base Excess -2.6 L VBG Potassium 5.4 H Glucose 299 H Lactate 2.4 H FiO2 21.0 Crit Value Called To Stephen collins Crit Value Called By Rs Blood Gas Notified Time 2035 Sodium 124.0 L Potassium Chloride 89.0 L Carbon Dioxide Anion Gap BUN Creatinine Est GFR ( Amer) Est GFR (Non-Af Amer) POC Glucose (mg/dL) Random Glucose Calcium Phosphorus Magnesium Total Bilirubin AST ALT Alkaline Phosphatase Lactate Dehydrogenase Total Creatine Kinase Troponin I Total Protein Albumin Globulin Albumin/Globulin Ratio Venous Blood Potassium 5.4 H Urine Color yellow Urine Appearance Clear Urine pH 6.5 Ur Specific Row[place] 1.020 Urine Protein 100 H Urine Glucose (UA) 500 H Urine Ketones Trace H Urine Blood Negative Urine Nitrate Negative Urine Bilirubin Negative Urine Urobilinogen 0.2 Ur Leukocyte Esterase Negative Urine RBC 5 - 10 H Urine WBC 2 - 5 Ur Epithelial Cells 6 - 8 H Assessment & Plan - Assessment and Plan (Free Text) Assessment: Patient is an 83 yo female with poorly controlled T2DM, HTN, GERD, CKD, hypothyroidism, iron deficiency anemia, anxiety, essential tremor, and chronic back pain who presents with nausea and vomiting for one day duration with associated decreased food/water intake. Plan: Hypovolemic Hyponatremia 2/2 Vomiting - urine sodium, serum osmolality, urine osmolality - Na was 124 on admission - IVF NS @ 75 cc/hr - BMP q8 x3 to monitor sodium correction - zofran prn for nausea/vomiting - TSH - NPO - Urine drug screen - CT A/P: diverticulosis and mild constipation Hyperkalemia - K 5.2 in ED; monitor and replete as needed - Kayexalate given x1 EKG: NSR, no acute ST/T wave changes GERD - PTX 40mg IVP Anemia - Hgb 11.9 (baseline) - Hx iron deficiency anemia DM II, uncontrolled - Accuchecks q6h - ISS (med) - Hgb A1c ordered; last Hgb A1c 12.8% - resume Neurontin home med for DM neuropathy CKD Stage III - BUN/Cr stable at this time HTN - resume ASA 81mg daily - resume Lisinopril and Metroprolol home meds with holding parameters Hypothyroidism - resume home med synthroid Anxiety/Essential Tremor - resume home med xanax and remeron ppx: - scd - ptx Diet: NPO Dispo: Will admit patient to remote tele for hyponatremia. Case was discussed and reviewed with Attending Physician, Dr. Ndiaye <Adriana Ndiaye - Last Filed: 12/06/18 06:51> Results - Vital Signs Recent Vital Signs: Last Vital Signs Temp 97.8 F 12/06/18 00:01 Pulse 65 12/06/18 00:01 Resp 20 12/06/18 00:01 BP 144/61 12/06/18 00:01 Pulse Ox 95 12/06/18 00:01 - Labs Result Diagrams: 12/05/18 06:30 12/05/18 18:00 Labs: Laboratory Results - last 24 hr 12/05/18 12/05/18 12/05/18 06:30 06:30 06:30 WBC 9.0 RBC 4.33 Hgb 11.8 L Hct 35.9 L MCV 82.9 MCH 27.3 MCHC 32.9 RDW 14.0 Plt Count 350 MPV 9.7 pO2 47 VBG pH 7.24 L VBG pCO2 47.0 VBG HCO3 20.1 L VBG Total CO2 21.5 L VBG O2 Sat (Calc) 78.2 H VBG Base Excess -7.3 L VBG Potassium 4.5 Sodium 126.0 L 129 L Chloride 91.0 L 92 L Glucose 309 H Lactate 1.6 FiO2 21.0 Crit Value Called To Jimena tavarez Crit Value Called By Marta Blood Gas Notified Time 656 Potassium 4.8 Carbon Dioxide 20 L Anion Gap 22 H BUN 16 Creatinine 1.1 Est GFR ( Amer) 58 Est GFR (Non-Af Amer) 48 POC Glucose (mg/dL) Random Glucose 290 H Hemoglobin A1c Serum Osmolality Calcium 9.2 Total Bilirubin 0.6 AST 22 ALT 22 Alkaline Phosphatase 102 Total Protein 7.9 Albumin 4.4 Globulin 3.5 Albumin/Globulin Ratio 1.3 Lipase 71 TSH 3rd Generation Venous Blood Potassium 4.5 12/05/18 12/05/1812/05/19 06:30 06:30 11:48 WBC RBC Hgb Hct MCV MCH MCHC RDW Plt Count MPV pO2 VBG pH VBG pCO2 VBG HCO3 VBG Total CO2 VBG O2 Sat (Calc) VBG Base Excess VBG Potassium Sodium Chloride Glucose Lactate FiO2 Crit Value Called To Crit Value Called By Blood Gas Notified Time Potassium Carbon Dioxide Anion Gap BUN Creatinine Est GFR ( Amer) Est GFR (Non-Af Amer) POC Glucose (mg/dL) 228 H Random Glucose Hemoglobin A1c 14.0 H Serum Osmolality 282 Calcium Total Bilirubin AST ALT Alkaline Phosphatase Total Protein Albumin Globulin Albumin/Globulin Ratio Lipase [facility] 3rd Generation 2.25 Venous Blood Potassium 12/05/18 12/05/18 12/05/18 13:01 13:25 14:09 WBC RBC Hgb Hct MCV MCH MCHC RDW Plt Count MPV pO2 VBG pH VBG pCO2 VBG HCO3 VBG Total CO2 VBG O2 Sat (Calc) VBG Base Excess VBG Potassium Sodium 129 L Chloride 95 L Glucose Lactate FiO2 Crit Value Called To Crit Value Called By Blood Gas Notified Time Potassium 4.8 Carbon Dioxide 20 L Anion Gap 20 BUN 16 Creatinine 1.1 Est GFR ( Amer) 58 Est GFR (Non-Af Amer) 48 POC Glucose (mg/dL) 215 H 168 H Random Glucose 218 H Hemoglobin A1c Serum Osmolality Calcium 8.8 Total Bilirubin AST ALT Alkaline Phosphatase Total Protein Albumin Globulin Albumin/Globulin Ratio Lipase [facility] 3rd Generation Venous Blood Potassium 12/05/18 12/05/18 12/05/18 16:30 18:00 19:43 WBC RBC Hgb Hct MCV MCH MCHC RDW Plt Count MPV pO2 VBG pH VBG pCO2 VBG HCO3 VBG Total CO2 VBG O2 Sat (Calc) VBG Base Excess VBG Potassium Sodium 134 Chloride 106 Glucose Lactate FiO2 Crit Value Called To Crit Value Called By Blood Gas Notified Time Potassium 3.8 Carbon Dioxide 22 Anion Gap 11 BUN 13 Creatinine 1.1 Est GFR ( Amer) 58 Est GFR (Non-Af Amer) 48 POC Glucose (mg/dL) 78 213 H Random Glucose 62 L Hemoglobin A1c Serum Osmolality Calcium 8.4 Total Bilirubin AST ALT Alkaline Phosphatase Total Protein Albumin Globulin Albumin/Globulin Ratio Lipase [facility] 3rd Generation Venous Blood Potassium 12/05/18 21:17 WBC RBC Hgb Hct MCV MCH MCHC RDW Plt Count MPV pO2 VBG pH VBG pCO2 VBG HCO3 VBG Total CO2 VBG O2 Sat (Calc) VBG Base Excess VBG Potassium Sodium Chloride Glucose Lactate FiO2 Crit Value Called To Crit Value Called By Blood Gas Notified Time Potassium Carbon Dioxide Anion Gap BUN Creatinine Est GFR ( Amer) Est GFR (Non-Af Amer) POC Glucose (mg/dL) 254 H Random Glucose Hemoglobin A1c Serum Osmolality Calcium Total Bilirubin AST ALT Alkaline Phosphatase Total Protein Albumin Globulin Albumin/Globulin Ratio Lipase TSH 3rd Generation Venous Blood Potassium Attending/Attestation - Attestation I have personally seen and examined this patient.: Yes I have fully participated in the care of the patient.: Yes I have reviewed all pertinent clinical information: Yes Notes (Text): 12/06/18 06:51 Seen and examined. Discussed with resident. A&P as above
[2018-12-05] MEDS ORDERED: Insulin Lispro (humaLOG) LOW Coverage SC SCH ×2 (01:15→07:30)
[2018-12-05] MEDS ORDERED: Insulin Lispro (humaLOG) MEDIUM Coverage SC SCH ×2 (01:15→04:38)
[2018-12-05 03:29] VITALS: BMI 20.5
[2018-12-05] MEDS: Levothyroxine 100 MCG TAB PO SCH (05:21)
[2018-12-05 06:58] LABS: VENOUS BLOOD GAS BASE EXCESS -7.3 mmol/L (0.0-2.0); VENOUS BLOOD GAS PO2 47 mm/Hg (30-55); VENOUS BLOOD PH 7.24 (7.32-7.43)
[2018-12-05 07:05] LABS: HEMOGLOBIN 11.8 g/dL (12.0-16.0); MEAN CELL VOLUME 82.9 fl (80.0-105.0); MEAN CORPUSCULAR HEMOGLOBIN 27.3 pg (25.0-35.0); MEAN CORPUSCULAR HGB CONC 32.9 g/dl (31.0-37.0); MEAN PLATELET VOLUME 9.7 fl (7.0-11.0); RBC 4.33 10^6/uL (3.5-6.1)
[2018-12-05 07:38] LABS: ALB/GLOB RATIO 1.3 (1.1-1.8); ALBUMIN 4.4 g/dL (3.0-4.8); CALCIUM 9.2 mg/dL (8.4-10.5)
[2018-12-05] MEDS ORDERED: Magnesium Sulfate 2 gm/50 ml 2 GM/50 ML BAG IVPB ONE (09:10)
--- NOTE | 2018-12-05 09:22 | CT ---
Date of service: 12/04/2018 PROCEDURE: CT Abdomen and Pelvis with contrast HISTORY: upper abdominal tenderness COMPARISON: 07/31/2016. TECHNIQUE: CT scan of the abdomen and pelvis was performed after administration of intravenous contrast. Oral contrast was not administered. Coronal and sagittal reformatted images were obtained. Contrast dose: Radiation dose: Total exam DLP = 257.9 mGy-cm. This CT exam was performed using one or more of the following dose reduction techniques: Automated exposure control, adjustment of the mA and/or kV according to patient size, and/or use of iterative reconstruction technique. FINDINGS: LOWER THORAX: The visualized lungs are clear. LIVER: Normal in size with homogeneous enhancement. Diffuse fatty liver. No gross lesion or ductal dilatation. GALLBLADDER AND BILE DUCTS: Well distended. No calcified gallstones, wall thickening or pericholecystic fluid. PANCREAS: Normal in size with homogeneous enhancement. No gross lesion or ductal dilatation. SPLEEN: Normal in size and appearance. ADRENALS: No discrete nodule. KIDNEYS AND URETERS: Normal in size with homogeneous enhancement. No hydronephrosis. No solid mass. VASCULATURE: No aortic aneurysm. There are advanced aortic atherosclerotic calcifications present. BOWEL: Evaluation of the bowel is limited in the absence of oral contrast. There is fecalization of small bowel contents. There is fluid in the ascending and transverse colon. There is apparent mild circumferential mural thickening in the left hemicolon. There is left colonic diverticulosis without CT evidence for acute diverticulitis. No evidence for bowel obstruction. APPENDIX: No inflammatory changes in the right lower quadrant. PERITONEUM: No free fluid. No free air. LYMPH NODES: No enlarged lymph nodes. BLADDER: Well distended and normal in appearance. REPRODUCTIVE: The uterus is normal in size. BONES: No acute fracture. There is diffuse bone demineralization and multilevel degenerative changes in the spine. OTHER FINDINGS: None. IMPRESSION: Fluid in the ascending and transverse colon an apparent mild circumferential mural thickening in the left hemicolon could represent nonspecific acute infectious/inflammatory colitis in the appropriate clinical setting. No evidence for bowel obstruction. Left colonic diverticulosis without CT evidence for acute diverticulitis. A preliminary report was provided by [facility]. The final report is tagged to the PA review folder.
[2018-12-05] MEDS: Sodium Chloride 0.9% 1,000 ML IV SCH ×2 (09:54→17:00)
[2018-12-05] MEDS ORDERED: cefTRIAXone 1 gm 1 GM/100 ML BAG IVPB SCH (10:45)
--- NOTE | 2018-12-05 10:52 | RAD ---
Date of service: 12/04/2018 HISTORY: nausea/vomiting COMPARISON: 08/28/2016 FINDINGS: LUNGS: Limited portable examination. There is patient rotation to the right. The lungs are well inflated and clear. PLEURA: No pleural effusions or pneumothorax. CARDIOVASCULAR: The heart is normal in size. No aortic atherosclerotic calcifications present. OSSEOUS STRUCTURES: Within normal limits for the patient's age. VISUALIZED UPPER ABDOMEN: Normal. OTHER FINDINGS: None. IMPRESSION: No active pulmonary disease.
[2018-12-05] MEDS ORDERED: Sodium Chloride 0.9% 1,000 ML IV STA (11:10)
[2018-12-05] MEDS ORDERED: Insulin Regular 1 UNITS/0.01 ML ML SC ONE ×2 (11:11→14:05)
[2018-12-05] MEDS ORDERED: Insulin Reg-HIGH-Coverage SC SCH (11:30)
--- NOTE | 2018-12-05 11:47 | CARD ---
APPROVED REPORT Date of service: 12/04/2018 EKG Measurement Heart [id number] <Conclusion> Normal sinus rhythm Inferior infarct, age undetermined Abnormal ECG
--- NOTE | 2018-12-05 12:07 | CP.PCM.CON ---
History of Present Illness - History of Present Illness History of Present Illness: MICU CONSULT HPI Patient is 83yo female with PMhx of uncontrolled DMII, HTN, GERD, CKD baseline Cr ~1, presented with nausea vomiting, and poor po intake. Pt states she has not eaten for 2-3 days, unable to keep anything down. Pt noted to have hyperglycemia, with mild AG 14, given 1L IVF, and Insulin 6u x 2 SQ, started on IVF NS continuous. Pt currently denies fever, chills, cough, CP, SOB, abd pain. Labs, imaging, chart reviewed. Pt to receive 2L NS bolus, with sliding scale coverage. PMHx: poorly controlled T2DM, HTN, GERD, CKD Stage III, hypothyroidism PSHx: appendectomy, back surgery FH: DM, stomach cancer SH: Denies EtOH, smoking, illicit drug use. All: Naproxen Med: as per EMR Review of Systems - Review of Systems Review of Systems: as per HPI Past Patient History - Infectious Disease Hx of Infectious Diseases: None - Tetanus Immunizations Tetanus Immunization: Unknown - Past Social History Smoking Status: Former Smoker - CARDIAC Hx Cardiac Disorders: Yes Hx Hypercholesterolemia: Yes Hx Hypertension: Yes Hx Peripheral Edema: Yes - PULMONARY Hx Respiratory Disorders: Yes Hx Chronic Obstructive Pulmonary Disease (COPD): Yes - NEUROLOGICAL Hx Neurological Disorder: Yes (NEUROPATHY) Other/Comment: hand tremors - HEENT Hx HEENT Problems: Yes Hx Cataracts: Yes (WITH SURGERY) - RENAL Hx Chronic Kidney Disease: Yes Hx Renal Failure: Yes (CKD III) - ENDOCRINE/METABOLIC Hx Endocrine Disorders: Yes Hx Diabetes Mellitus Type 2: Yes Hx Hypothyroidism: Yes - HEMATOLOGICAL/ONCOLOGICAL Hx Blood Disorders: Yes Hx Anemia: Yes - INTEGUMENTARY Hx Dermatological Problems: Yes - MUSCULOSKELETAL/RHEUMATOLOGICAL Hx Musculoskeletal Disorders: Yes (RADICULOPATHY) Hx Falls: Yes Hx Herniated Disk: Yes Hx Spinal Stenosis: Yes Hx Unsteady Gait: Yes - GASTROINTESTINAL Hx Gastrointestinal Disorders: Yes (gastroparesis/ constipation) Hx Gastroesophageal Reflux: Yes - GENITOURINARY/GYNECOLOGICAL Hx Genitourinary Disorders: Yes (right ovarian cyst) Hx Urinary Tract Infection: Yes - PSYCHIATRIC Hx Psychophysiologic Disorder: Yes Hx Anxiety: Yes Hx Substance Use: No (denies) - SURGICAL HISTORY Hx Surgeries: Yes Hx Appendectomy: Yes Hx Orthopedic Surgery: Yes (R/T HERNIATED DISC) - ANESTHESIA Hx Anesthesia: Yes Hx Anesthesia Reactions: No Hx Malignant Hyperthermia: No Meds Allergies/Adverse Reactions: Allergies Allergy/AdvReac Type Severity Reaction Status Date / Time naproxen Allergy RASH Verified 11/14/18 11:17 - Medications Medications: Current Medications Acetaminophen (Tylenol 325mg Tab) 650 mg PO Q6H PRN PRN Reason: Pain, Mild (1-3) Alprazolam (Xanax) 0.25 mg PO BID PRN; Protocol PRN Reason: Anxiety Stop: 12/12/18 01:14 Last Admin: 12/05/18 04:08 Dose: 0.25 mg Aspirin (Aspirin Chewable) 81 mg PO DAILY [facility] Last Admin: 12/05/18 10:20 Dose: 81 mg Gabapentin (Neurontin) 300 mg PO TID [facility]; Protocol Last Admin: 12/05/18 09:59 Dose: 300 mg Sodium Chloride (Sodium Chloride 0.9%) 1,000 mls @ 75 mls/hr IV .[id number] [facility] Last Admin: 12/05/18 09:54 Dose: Not Given Sodium Chloride (Sodium Chloride 0.9%) 1,000 mls @ 999 mls/hr IV .Q1H1M STA Stop: 12/05/18 12:10 Last Admin: 12/05/18 11:26 Dose: 999 mls/hr Sodium Chloride (Sodium Chloride 0.9%) 1,000 mls @ 999 mls/hr IV .Q1H1M ONE Stop: 12/05/18 13:10 Insulin Human Regular (Humulin R High) 0 units SC ACHS [facility]; Protocol Levothyroxine Sodium (Synthroid) 100 mcg PO 0600 [facility] Last Admin: 12/05/18 05:21 Dose: 100 mcg Lisinopril (Zestril) 10 mg PO DAILY [facility] Last Admin: 12/05/18 10:20 Dose: 10 mg Metoclopramide HCl (Reglan) 5 mg IVP ACHS [facility] Metoprolol Tartrate (Lopressor) 25 mg PO BID [facility] Last Admin: 12/05/18 10:21 Dose: 25 mg Mirtazapine (Remeron) 15 mg PO HS [facility] Ondansetron HCl (Zofran Inj) 4 mg IVP Q4H PRN PRN Reason: Nausea/Vomiting Last Admin: 12/05/18 04:08 Dose: 4 mg Pantoprazole Sodium (Protonix Inj) 40 mg IVP DAILY [facility] Last Admin: 12/05/18 09:59 Dose: 40 mg Physical Exam - Constitutional Appears: Non-toxic, No Acute Distress - Head Exam Head Exam: NORMAL INSPECTION - Eye Exam Eye Exam: Normal appearance - ENT Exam ENT Exam: Mucous Membranes Moist - Neck Exam Neck exam: Positive for: Full Rom - Respiratory Exam Respiratory Exam: Clear to Auscultation Bilateral, NORMAL BREATHING PATTERN - Cardiovascular Exam Cardiovascular Exam: REGULAR RHYTHM, +S1, +S2 - GI/Abdominal Exam GI & Abdominal Exam: Normal Bowel Sounds, Soft - Extremities Exam Extremities exam: Positive for: normal inspection - Neurological Exam Neurological exam: Alert, Oriented x3 - Psychiatric Exam Psychiatric exam: Normal Affect, Normal Mood - Skin Skin Exam: Normal Color, Warm Results - Vital Signs Recent Vital Signs: Last Vital Signs Temp 98.1 F 12/05/18 06:00 Pulse 96 H 12/05/18 10:21 Resp 20 12/05/18 06:00 BP 136/67 12/05/18 10:21 Pulse Ox 98 12/05/18 06:00 - Labs Result Diagrams: 12/05/18 06:30 12/05/18 06:30 Labs: Laboratory Results - last 24 hr 12/04/18 12/04/18 12/04/18 20:09 20:15 20:15 WBC 8.7 D RBC 4.33 Hgb 11.9 L Hct 36.0 MCV 83.1 D MCH 27.5 MCHC 33.1 RDW 13.8 Plt Count 304 MPV 9.5 Neut % (Auto) 64.9 Lymph % (Auto) 28.1 [place] % (Auto) 5.2 Eos % (Auto) 1.5 Baso % (Auto) 0.3 Lymph # (Auto) 2.4 [place] # (Auto) 0.5 Eos # (Auto) 0.1 Baso # (Auto) 0.03 Absolute Neuts (auto) 5.62 pO2 VBG pH VBG pCO2 VBG HCO3 VBG Total CO2 VBG O2 Sat (Calc) VBG Base Excess VBG Potassium Glucose Lactate FiO2 Crit Value Called To Crit Value Called By Blood Gas Notified Time Sodium 124 L Potassium 5.2 H Chloride 90 L Carbon Dioxide 20 L Anion Gap 19 BUN 18 Creatinine 1.1 Est GFR ( Amer) 58 Est GFR (Non-Af Amer) 48 POC Glucose (mg/dL) 278 H Random Glucose 293 H Serum Osmolality Calcium 9.3 Phosphorus 4.0 Magnesium 1.6 L Total Bilirubin 0.4 AST 24 ALT 18 Alkaline Phosphatase 96 Lactate Dehydrogenase 468 Total Creatine Kinase < 20 L Troponin I < 0.01 Total Protein 7.7 Albumin 4.3 Globulin 3.3 Albumin/Globulin Ratio 1.3 Lipase TSH 3rd Generation Venous Blood Potassium Urine Color Urine Appearance Urine pH Ur Specific [place] Urine Protein Urine Glucose (UA) Urine Ketones Urine Blood Urine Nitrate Urine Bilirubin Urine Urobilinogen Ur Leukocyte Esterase Urine RBC Urine WBC Ur Epithelial Cells 12/04/18 12/04/18 12/05/18 20:25 21:15 06:19 WBC RBC Hgb Hct MCV MCH MCHC RDW Plt Count MPV Neut % (Auto) Lymph % (Auto) [place] % (Auto) Eos % (Auto) Baso % (Auto) Lymph # (Auto) [place] # (Auto) Eos # (Auto) Baso # (Auto) Absolute Neuts (auto) pO2 21 L VBG pH 7.32 VBG pCO2 46.0 VBG HCO3 23.7 VBG Total CO2 25.1 VBG O2 Sat (Calc) 30.6 L VBG Base Excess -2.6 L VBG Potassium 5.4 H Glucose 299 H Lactate 2.4 H FiO2 21.0 Crit Value Called To Stephen collins Crit Value Called By Rs Blood Gas Notified Time 2035 Sodium 124.0 L Potassium Chloride 89.0 L Carbon Dioxide Anion Gap BUN Creatinine Est GFR ( Amer) Est GFR (Non-Af Amer) POC Glucose (mg/dL) 291 H Random Glucose Serum Osmolality Calcium Phosphorus Magnesium Total Bilirubin AST ALT Alkaline Phosphatase Lactate Dehydrogenase Total Creatine Kinase Troponin I Total Protein Albumin Globulin Albumin/Globulin Ratio Lipase TSH 3rd Generation Venous Blood Potassium 5.4 H Urine Color yellow Urine Appearance Clear Urine pH 6.5 Ur Specific [place] 1.020 Urine Protein 100 H Urine Glucose (UA) 500 H Urine Ketones Trace H Urine Blood Negative Urine Nitrate Negative Urine Bilirubin Negative Urine Urobilinogen 0.2 Ur Leukocyte Esterase Negative Urine RBC 5 - 10 H Urine WBC 2 - 5 Ur Epithelial Cells 6 - 8 H 12/05/18 12/05/18 12/05/18 06:30 06:30 06:30 WBC 9.0 RBC 4.33 Hgb 11.8 L Hct 35.9 L MCV 82.9 MCH 27.3 MCHC 32.9 RDW 14.0 Plt Count 350 MPV 9.7 Neut % (Auto) Lymph % (Auto) [place] % (Auto) Eos % (Auto) Baso % (Auto) Lymph # (Auto) [place] # (Auto) Eos # (Auto) Baso # (Auto) Absolute Neuts (auto) pO2 47 VBG pH 7.24 L VBG pCO2 47.0 VBG HCO3 20.1 L VBG Total CO2 21.5 L VBG O2 Sat (Calc) 78.2 H VBG Base Excess -7.3 L VBG Potassium 4.5 Glucose 309 H Lactate 1.6 FiO2 21.0 Crit Value Called To Jimena tavarez Crit Value Called By Marta Blood Gas Notified Time 656 Sodium 126.0 L 129 L Potassium 4.8 Chloride 91.0 L 92 L Carbon Dioxide 20 L Anion Gap 22 H BUN 16 Creatinine 1.1 Est GFR ( Amer) 58 Est GFR (Non-Af Amer) 48 POC Glucose (mg/dL) Random Glucose 290 H Serum Osmolality Calcium 9.2 Phosphorus Magnesium Total Bilirubin 0.6 AST 22 ALT 22 Alkaline Phosphatase 102 Lactate Dehydrogenase Total Creatine Kinase Troponin I Total Protein 7.9 Albumin 4.4 Globulin 3.5 Albumin/Globulin Ratio 1.3 Lipase 71 TSH 3rd Generation Venous Blood Potassium 4.5 Urine Color Urine Appearance Urine pH Ur Specific [place] Urine Protein Urine Glucose (UA) Urine Ketones Urine Blood Urine Nitrate Urine Bilirubin Urine Urobilinogen Ur Leukocyte Esterase Urine RBC Urine WBC Ur Epithelial Cells 12/05/18 06:30 WBC RBC Hgb Hct MCV MCH MCHC RDW Plt Count MPV Neut % (Auto) Lymph % (Auto) [place] % (Auto) Eos % (Auto) Baso % (Auto) Lymph # (Auto) [place] # (Auto) Eos # (Auto) Baso # (Auto) Absolute Neuts (auto) pO2 VBG pH VBG pCO2 VBG HCO3 VBG Total CO2 VBG O2 Sat (Calc) VBG Base Excess VBG Potassium Glucose Lactate FiO2 Crit Value Called To Crit Value Called By Blood Gas Notified Time Sodium Potassium Chloride Carbon Dioxide Anion Gap BUN Creatinine Est GFR ( Amer) Est GFR (Non-Af Amer) POC Glucose (mg/dL) Random Glucose Serum Osmolality 282 Calcium Phosphorus Magnesium Total Bilirubin AST ALT Alkaline Phosphatase Lactate Dehydrogenase Total Creatine Kinase Troponin I Total Protein Albumin Globulin Albumin/Globulin Ratio Lipase TSH 3rd Generation 2.25 Venous Blood Potassium Urine Color Urine Appearance Urine pH Ur Specific [place] Urine Protein Urine Glucose (UA) Urine Ketones Urine Blood Urine Nitrate Urine Bilirubin Urine Urobilinogen Ur Leukocyte Esterase Urine RBC Urine WBC Ur Epithelial Cells - Imaging and Cardiology Chest x-ray Status: Image reviewed by me, Report reviewed by me Assessment & Plan - Assessment and Plan (Free Text) Assessment: 83yo female with AG, and hyperglycemia Hyperglycemia Mild DKA Dehydration CKD HTN - currently afebrile, HD stable, comfortable in NAD - labs, imaging, chart reviewed - Labs with TRACE ketones, and Bicarb=20, AG=17, Cl 92, s/p 1L NS, and NS 75cc/hr Recommend: - IVF bolus, 2L, NS - high dose sliding scale, would give 6u SQ Lispro Insulin STAT - Reglan PRN IV - NPO for now - repeat BMP in 3-4 hours, if no improvement will need insulin drip - GI ppx - DVT ppx Disposition to be determined, pending IVF, insulin and repeat lab work PCCM will follow up
[2018-12-05] MEDS ORDERED: Sodium Chloride 0.9% 1,000 ML IV ONE (12:10)
--- NOTE | 2018-12-05 12:51 | CP.PCM.PCO ---
Physician Communication Note - Physician Communication Note Physician Communication Note: DKA continue IVF, fingersticks and Insulin coverage
[2018-12-05 13:39] LABS: CALCIUM 8.8 mg/dL (8.4-10.5)
[2018-12-05] MEDS ORDERED: metroNIDAZOLE IV 500 mg/100 ml 500 MG/100 ML BAG IVPB SCH (14:00)
[2018-12-05] MEDS ORDERED: Dextrose 50% SYRINGE Inj (50 ml) IV PRN (14:04)
[2018-12-05] MEDS: Insulin Lispro (humaLOG) LOW Coverage SC SCH ×2 (16:42→21:28)
[2018-12-05 18:35] LABS: CALCIUM 8.4 mg/dL (8.4-10.5)
--- NOTE | 2018-12-05 18:55 | CON ---
DATE OF CONSULTATION: 12/05/2018 GASTROENTEROLOGY CONSULTATION REQUESTING PHYSICIAN: Dr. Salvador. REASON FOR CONSULTATION: I have been asked to see this 83-year-old female, poorly controlled diabetic, well-known to me with history of chronic kidney disease, hypertension, GERD, diverticulosis, type 2 diabetes mellitus, hypothyroidism, chronic anemia, chronic back pain, anxiety, who comes to the hospital with a 1-day history of worsening nausea and vomiting. The patient was nauseous to the point where she could not take anything by mouth. She had multiple episodes of nonbloody vomiting. She denies any abdominal pain, rectal bleeding, diarrhea, or melena. She denies any fevers or chills. She denies any ingestion of unusual foods. She denies any recent travel. PAST MEDICAL HISTORY: As above. Again, she has a history of poorly controlled diabetes mellitus, chronic kidney disease, hypertension, GERD, hypothyroidism, chronic anemia, chronic back pain, anxiety disorder. PAST SURGICAL HISTORY: Notable for appendectomy and disk surgery about 20 years ago. FAMILY HISTORY: Notable for mother with diabetes mellitus. Father with stomach cancer. Brother with coronary artery disease. SOCIAL HISTORY: The patient denies recent cigarette smoking or alcohol use. She is a former heavy cigarette smoker between one to two packs a day for over 20 years. She lives alone at home. REVIEW OF SYSTEMS: Fourteen-point review of systems is notable for nausea and vomiting. MEDICATIONS: Medications at home include Ambien, omeprazole, Remeron, Zestril, Synthroid, Glucotrol, Neurontin, Lopressor, baby aspirin, and Xanax. PHYSICAL EXAMINATION: GENERAL: Elderly female, laying in bed, in no acute distress. VITAL SIGNS: Reveal a temperature of 98.1, blood pressure 136/67, heart rate 96. HEENT: Revealed sclerae to be white. Conjunctivae pink. Oral mucosa is dry. NECK: Supple. CHEST: Revealed lungs to be clear. HEART: Reveals regular rate and rhythm. ABDOMEN: Soft, nontender. No mass. EXTREMITIES: Show no edema. LABORATORY DATA: Revealed sodium 129, bicarb 20, blood sugar of 290. AST, ALT, and alk phos were all normal. CBC reveals white blood cell count 9, hemoglobin 11.8. Blood gas reveals a venous blood gas of 7.24 pH. Urinalysis is positive for ketones and high glucose levels. CT scan of the abdomen and pelvis reveals left-sided diverticulosis. I increased stool throughout the colon. I did not see any significant mural thickening in the colon. IMPRESSION: An 83-year-old female with 1 day of intractable nausea and vomiting, poor oral intake with laboratory data consistent with diabetic ketoacidosis. I suspect that the DKA is the cause of her nausea and vomiting. The patient denies any diarrhea. Clinically, she does not have colitis. Her hemoglobin is at baseline. She has chronic anemia. RECOMMENDATIONS: 1. Consider insulin drip for DKA. 2. We will start the patient on diabetic clear liquids. I have discussed this case with the attending, Dr. Salvador, and the medical team. Lucho Pierce MD
--- NOTE | 2018-12-05 19:54 | CON ---
DATE OF CONSULTATION: 12/05/2018 ENDOCRINOLOGY CONSULTATION HISTORY OF PRESENT ILLNESS: This is an 83-year-old female with known history of type 2 diabetes and hypertension, presenting here with intractable vomiting with nausea, dyspepsia, and diffuse upper abdominal pain, and is now being referred for diabetic evaluation and management. PAST MEDICAL HISTORY: As mentioned above, history of type 2 diabetes on glipizide taken as 10 mg b.i.d., history of hypertension and dyslipidemia, history of chronic anemia, chronic iron-deficiency anemia, history of diabetic retinopathy, polyneuropathy, and nephropathy with underlying chronic kidney disease, history of GERD with chronic gastritis, history of generalized anxiety and insomnia and disruptive sleep patterns, history also of chronic low back pain and has had diffuse osteoarthritis and lumbar disk disease, history of essential tremors as noted. FAMILY HISTORY: Positive for hypertension and heart disease. SOCIAL HISTORY: The patient has supportive family. No known substance use. REVIEW OF SYSTEMS: As mentioned above, admits to generalized body weakness with episodic bouts of dizziness and lightheadedness, worse on the day of admission. No chest pains, but admits to episodic shortness of breath, especially on exertion. Her oral intake has been variable with nausea, dyspepsia, and diffuse upper abdominal pains with supervening intractable vomiting episodes. Also admits to persistent polyuria and nocturia with habitual constipation. PHYSICAL EXAMINATION: GENERAL: This is an average built female, in no apparent distress. VITAL SIGNS: Blood pressure of 140/80, pulse of 100 beats per minute, regular, temperature 98, respirations 20, height is 5 feet, weight is 118 pounds. HEENT: Head, normocephalic. Eyes, anicteric with pink conjunctivae. Fundoscopy not possible at this time. Ears, nose and throat otherwise normal. NECK: Supple. Thyroid gland is normal in size. No carotid bruits or any cervical adenopathy. CARDIOPULMONARY: Some adynamic precordium. S1, S2 are rapid and regular. LUNGS: Clear to auscultation. ABDOMEN: Flat, soft with positive bowel sounds. EXTREMITIES: No peripheral edema. Pulses are +2 bilaterally. LABORATORY DATA: Her chemistries showed a BUN of 16, sodium 129, potassium 4.8, chloride 95, CO2 is 20, glucose is 218, and creatinine is 1.1. Her A1c is extremely elevated at 14%. Her glucose values have ranged from 168-215 and 228 mg/dL. Her TSH is 2.25. ASSESSMENT: This is an 83-year-old female with recent uncontrolled type 2 insulin-requiring diabetes, presenting here with intractable vomiting and diffuse upper abdominal pain and is now undergoing gastrointestinal workup at this time and is currently on a liquid diet as noted. PLAN OF MANAGEMENT: We will add basal insulin, add Levemir at 10 units subcu at bedtime daily to start tonight. As the patient is only on a liquid diet, then we will hold off the initiation of prandial insulin at this time and observe her glycemic fluctuations otherwise. We will modify her oral hypoglycemic drug therapy given in combination to hopefully keep her only on basal insulin with oral hypoglycemic therapy given in combination for daytime hyperglycemic accelerations. We will obtain serial chemistries and supplement accordingly as needed. We will also continue her IV hydration as ordered, especially to improve her prerenal azotemia and spurious hyponatremia as noted. We will follow this. Nita Arguelles MD
[2018-12-05] MEDS: Insulin Detemir 100 units/ml Vial (Levemir) SC SCH (21:37)
[2018-12-06] MEDS: Levothyroxine 100 MCG TAB PO SCH (06:18)
[2018-12-06] MEDS: Sodium Chloride 0.9% 1,000 ML IV SCH ×3 (07:06→17:27)
[2018-12-06] MEDS: Insulin Lispro (humaLOG) LOW Coverage SC SCH ×4 (07:50→21:39)
[2018-12-06 08:32] LABS: HEMOGLOBIN 10.2 g/dL (12.0-16.0); MEAN CELL VOLUME 84.2 fl (80.0-105.0); MEAN CORPUSCULAR HEMOGLOBIN 27.3 pg (25.0-35.0); MEAN CORPUSCULAR HGB CONC 32.4 g/dl (31.0-37.0); MEAN PLATELET VOLUME 9.2 fl (7.0-11.0); RBC 3.74 10^6/uL (3.5-6.1); RED CELL DISTRIBUTION WIDTH 14.6 % (11.5-14.5); WHITE BLOOD COUNT 5.6 10^3/uL (4.5-11.0)
[2018-12-06 08:39] LABS: ALB/GLOB RATIO 1.1 (1.1-1.8); ALBUMIN 3.3 g/dL (3.0-4.8); CALCIUM 8.9 mg/dL (8.4-10.5)
--- NOTE | 2018-12-06 13:10 | PN ---
DATE: 12/06/2018 ENDOCRINOLOGY FOLLOWUP NOTE LOCATION: In room 276. SUBJECTIVE: This is an 83-year-old female with recent uncontrolled type 2 diabetes, presenting here with nausea, dyspepsia and intractable vomiting, and is now being followed closely for metabolic management. Her glycemic levels are fluctuating, but much improved as noted overnight and the glucose levels have ranged from 134-254 mg/dL. LABORATORY DATA: Her chemistry showed a BUN of 11, sodium 138, potassium 4.1, chloride 107, CO2 of 25, glucose 108, and creatinine 1.2. Her TSH is 0.81 with a T4 of 8.3. ASSESSMENT: This is an 83-year-old female with uncontrolled type 2 insulin-requiring diabetes with transient hyperglycemic accelerations and presenting here with dyspepsia and intractable vomiting and is undergoing gastroenterology workup at this time. PLAN OF MANAGEMENT: We will continue the basal insulin given as Levemir at 10 units subcu at bedtime daily as given as her oral intake is advanced starting today, then we will expect hyperglycemic accelerations postprandially and we will resume the oral hypoglycemic drug therapy as indicated. We will obtain serial chemistries and supplement accordingly as needed. We will also continue the IV hydration as given. We will follow and advise accordingly. Nita Arguelles MD
[2018-12-06 14:14] LABS: BENZODIAZEPINES, UR NEGATIVE (NEGATIVE)
[2018-12-06 14:34] LABS: BARBITURATES, UR NEGATIVE (NEGATIVE); OPIATES, UR NEGATIVE (NEGATIVE); PHENCYCLIDINE, UR NEGATIVE (NEGATIVE)
--- NOTE | 2018-12-06 14:56 | CP.PCM.PN ---
<Jin Kim - Last Filed: 12/06/18 15:58> Subjective - Date & Time of Evaluation Date of Evaluation: 12/06/18 Time of Evaluation: 08:10 - Subjective Subjective: Jin Kim DO PGY1 Hospitalist Progress Note for Dr Patel Patient seen and examined at bedside. He reports no complaints. Her nausea/vomiting improved. Tolerating her liquid diet. No acute events overnight. Objective - Vital Signs/Intake and Output Vital Signs (last 24 hours): Temp Pulse Resp BP Pulse Ox 98.0 F 63 19 166/52 H 95 12/06/18 12:00 12/06/18 12:00 12/06/18 12:00 12/06/18 12:00 12/06/18 00:01 Intake and Output: 12/06/18 12/06/18 06:59 18:59 Intake Total 600 Output Total 3 Balance 597 - Medications Medications: Current Medications Acetaminophen (Tylenol 325mg Tab) 650 mg PO Q6H PRN PRN Reason: Pain, Mild (1-3) Last Admin: 12/06/18 06:18 Dose: 650 mg Alprazolam (Xanax) 0.25 mg PO BID PRN; Protocol PRN Reason: Anxiety Stop: 12/12/18 01:14 Last Admin: 12/05/18 04:08 Dose: 0.25 mg Aspirin (Aspirin Chewable) 81 mg PO DAILY [facility] Last Admin: 12/06/18 10:23 Dose: 81 mg Dextrose (Dextrose 50% Inj) 0 ml IV STAT PRN; Protocol PRN Reason: Hypoglycemia Protocol Gabapentin (Neurontin) 300 mg PO TID [facility]; Protocol Last Admin: 12/06/18 13:18 Dose: 300 mg Dextrose (Dextrose 5% In Water 1000 Ml) 1,000 mls @ 0 mls/hr IV .Q0M PRN; Protocol PRN Reason: Hypoglycemia Protocol Sodium Chloride (Sodium Chloride 0.9%) 1,000 mls @ 100 mls/hr IV .Q10H [facility] Last Admin: 12/06/18 13:03 Dose: Not Given Insulin Detemir (Levemir) 10 unit SC HS [facility] Last Admin: 12/05/18 21:37 Dose: 10 units Insulin Human Lispro (Humalog Low) 0 units SC ACHS [facility]; Protocol Last Admin: 12/06/18 11:33 Dose: Not Given Levothyroxine Sodium (Synthroid) 100 mcg PO 0600 [facility] Last Admin: 12/06/18 06:18 Dose: 100 mcg Lisinopril (Zestril) 10 mg PO DAILY [facility] Last Admin: 12/06/18 10:23 Dose: 10 mg Metoclopramide HCl (Reglan) 5 mg IVP ACHS [facility] Last Admin: 12/06/18 12:05 Dose: 5 mg Metoprolol Tartrate (Lopressor) 25 mg PO BID [facility] Last Admin: 12/06/18 10:23 Dose: 25 mg Mirtazapine (Remeron) 15 mg PO HS [facility] Last Admin: 12/05/18 21:37 Dose: 15 mg Ondansetron HCl (Zofran Inj) 4 mg IVP Q4H PRN PRN Reason: Nausea/Vomiting Last Admin: 12/06/18 10:22 Dose: 4 mg Pantoprazole Sodium (Protonix Inj) 40 mg IVP DAILY [facility] Last Admin: 12/06/18 10:22 Dose: 40 mg - Labs Labs: 12/06/18 08:00 12/06/18 08:00 - Constitutional Appears: Well, Non-toxic - Head Exam Head Exam: ATRAUMATIC, NORMAL INSPECTION, NORMOCEPHALIC - Eye Exam Eye Exam: EOMI, Normal appearance, PERRL Pupil Exam: NORMAL ACCOMODATION, PERRL - ENT Exam ENT Exam: Mucous Membranes Moist, Normal Exam - Neck Exam Neck Exam: Normal Inspection - Respiratory Exam Respiratory Exam: Clear to Ausculation Bilateral, NORMAL BREATHING PATTERN - Cardiovascular Exam Cardiovascular Exam: REGULAR RHYTHM, +S1, +S2. absent: JVD, RRR, Murmur - GI/Abdominal Exam GI & Abdominal Exam: Soft, Normal Bowel Sounds. absent: Tenderness - Extremities Exam Extremities Exam: Full ROM, Normal Capillary Refill, Normal Inspection. absent: Joint Swelling, Pedal Edema - Back Exam Back Exam: NORMAL INSPECTION - Neurological Exam Neurological Exam: Alert, Awake, CN II-XII Intact, Oriented x3 - Psychiatric Exam Psychiatric exam: Normal Affect, Normal Mood - Skin Skin Exam: Dry, Intact, Normal Color, Warm Assessment and Plan - Assessment and Plan (Free Text) Assessment: 83 yo female with PMH of uncontrolled DM2, HTN, CKD, hypothyroidism, iron deficiency anemia, anxiety, essential tremor, chronic back pain presented with nausea and vomiting. Found to have hyponatremia and hyperglycemia Plan: Uncontrolled DM2: -BG ranges between 134-296 for the last 24 hr -continue levemir 10 HS -ISS-L -accucheck -A1C 14 -patient can't adminster insulin because of hand tremors -diabetic education -endo following Dr Arguelles Resolved nausea/vomiting: -patient tolerates solid diet, asymptomatic -CT A/P:diverticulosis and mild constipation -UDS negative -continue reglan ACHS CKD Stage III -BUN/Cr -U Na, serum osmolality, -low U osmolality HTN -continue home med asa, lisinopril, metroprolol Resolved Hyperglycemia: -metabolic acidosis with AG, bicarb 20 -responded to IVF and insulin lispro -repeat BMP revealed AG closed Diabetic neuropathy: -resume home med neurontin Hypothyroidism: -resume home med synthroid Chronic back pain: -tylenol prn Anxiety: -continue home med mirtazipine, xanax PPX: -DVT: lovenx, SCD -GI: protonix -HHD -continue PT -social media intern referral Case reviewed and plan discussed with attending Dr Jorge Kim, <Flor Patel - Last Filed: 12/07/18 07:01> Objective - Vital Signs/Intake and Output Vital Signs (last 24 hours): Temp Pulse Resp BP Pulse Ox 98.3 F 96 H 20 165/74 H 96 12/07/18 00:01 12/07/18 02:00 12/07/18 00:01 12/07/18 00:01 12/07/18 00:01 Intake and Output: 12/06/18 12/07/18 18:59 06:59 Intake Total 1200 480 Output Total 1300 Balance 1200 -820 - Medications Medications: Current Medications Acetaminophen (Tylenol 325mg Tab) 650 mg PO Q6H PRN PRN Reason: Pain, Mild (1-3) Last Admin: 12/07/18 05:30 Dose: 650 mg Alprazolam (Xanax) 0.25 mg PO BID PRN; Protocol PRN Reason: Anxiety Stop: 12/12/18 01:14 Last Admin: 12/07/18 01:12 Dose: 0.25 mg Aspirin (Aspirin Chewable) 81 mg PO DAILY [facility] Last Admin: 12/06/18 10:23 Dose: 81 mg Dextrose (Dextrose 50% Inj) 0 ml IV STAT PRN; Protocol PRN Reason: Hypoglycemia Protocol Enoxaparin Sodium (Lovenox) 30 mg SC DAILY [facility]; Protocol Last Admin: 12/06/18 17:25 Dose: 30 mg Gabapentin (Neurontin) 300 mg PO TID [facility]; Protocol Last Admin: 12/06/18 17:24 Dose: 300 mg Glipizide (Glucotrol) 10 mg PO 0730,1630 [facility] Last Admin: 12/06/18 17:24 Dose: 10 mg Dextrose (Dextrose 5% In Water 1000 Ml) 1,000 mls @ 0 mls/hr IV .Q0M PRN; Protocol PRN Reason: Hypoglycemia Protocol Sodium Chloride (Sodium Chloride 0.9%) 1,000 mls @ 100 mls/hr IV .Q10H [facility] Last Admin: 12/06/18 17:27 Dose: 100 mls/hr Insulin Human Lispro (Humalog Low) 0 units SC [facility]; Protocol Last Admin: 12/06/18 21:39 Dose: Not Given Levothyroxine Sodium (Synthroid) 100 mcg PO 0600 [facility] Last Admin: 12/07/18 05:02 Dose: 100 mcg Lisinopril (Zestril) 10 mg PO DAILY [facility] Last Admin: 12/06/18 10:23 Dose: 10 mg Metoclopramide HCl (Reglan) 5 mg IVP ACHS [facility] Last Admin: 12/06/18 21:43 Dose: 5 mg Metoprolol Tartrate (Lopressor) 25 mg PO BID [facility] Last Admin: 12/06/18 17:24 Dose: 25 mg Mirtazapine (Remeron) 15 mg PO HS [facility] Last Admin: 12/06/18 21:43 Dose: 15 mg Ondansetron HCl (Zofran Inj) 4 mg IVP Q4H PRN PRN Reason: Nausea/Vomiting Last Admin: 12/06/18 10:22 Dose: 4 mg Pantoprazole Sodium (Protonix Inj) 40 mg IVP DAILY [facility] Last Admin: 12/06/18 10:22 Dose: 40 mg - Labs Labs: 12/06/18 08:00 12/06/18 08:00 Attending/Attestation - Attestation I have personally seen and examined this patient.: Yes I have fully participated in the care of the patient.: Yes I have reviewed all pertinent clinical information, including history, physical exam and plan: Yes Notes (Text): 12/06/18 83 year old female with past medical history of diabetes, hypertension, hypothyroidism, anxiety, and essential tremor who presented with nausea and vomiting. She was found to have uncontrolled diabetes with early DKA and hyponatremia. Symptoms improved with insulin and iv fluids. GI and endoc rinology evaluations were appreciated. Will continue to advance diet as tolerated. Hemoglobin A1c is 14. Patient is started on levemir. Discussed with patient regarding started long acting insulin; patient is agreeable. Diabetic education and self insulin administration education is requested. Hyponatremia has resolved. PT evaluation was requested. Flor Patel MD Hospitalist.
[2018-12-06] MEDS: Enoxaparin 30 mg Syringe SC SCH (17:25)
[2018-12-06] MEDS: Insulin Detemir 100 units/ml Vial (Levemir) SC SCH (21:40)
[2018-12-07] MEDS: Levothyroxine 100 MCG TAB PO SCH (05:02)
[2018-12-07] MEDS: Insulin Lispro (humaLOG) LOW Coverage SC SCH ×4 (07:48→21:52)
[2018-12-07] MEDS ORDERED: Insulin Detemir 100 units/ml Vial (Levemir) SC STA (08:38)
[2018-12-07] MEDS: Sodium Chloride 0.9% 1,000 ML IV SCH ×2 (08:39→09:49)
[2018-12-07 09:34] LABS: HEMOGLOBIN 10.3 g/dL (12.0-16.0); MEAN CELL VOLUME 86.2 fl (80.0-105.0); MEAN CORPUSCULAR HEMOGLOBIN 27.3 pg (25.0-35.0); MEAN CORPUSCULAR HGB CONC 31.7 g/dl (31.0-37.0); MEAN PLATELET VOLUME 9.1 fl (7.0-11.0); RBC 3.77 10^6/uL (3.5-6.1); RED CELL DISTRIBUTION WIDTH 14.7 % (11.5-14.5); WHITE BLOOD COUNT 4.4 10^3/uL (4.5-11.0)
[2018-12-07] MEDS: Enoxaparin 30 mg Syringe SC SCH (09:43)
[2018-12-07 10:07] LABS: ALB/GLOB RATIO 1.2 (1.1-1.8); ALBUMIN 3.5 g/dL (3.0-4.8); CALCIUM 8.8 mg/dL (8.4-10.5)
[2018-12-07] MEDS ORDERED: Insulin Regular 1 UNITS/0.01 ML ML IV ONE (10:24)
--- NOTE | 2018-12-07 17:08 | PN ---
DATE: 12/06/2017 In room 276. SUBJECTIVE: This is an 83-year-old female with recent uncontrolled type 2 insulin-requiring diabetes with extreme sub-glycemic values fluctuations and is now being followed closely for metabolic management. Her oral intake remains quite variable as per the nursing staff with low normal glycemic values last night of 76 mg/dL. However, this morning. Her glucose levels were 249 and 458 mg/dL. Her chemistry shows a BUN of 11, sodium 137, potassium 4.4, chloride 105, CO2 of 20, glucose 413, and creatinine 1.1. ASSESSMENT: This is an 83-year-old female with recent uncontrolled type 2 insulin-requiring diabetes, now being followed closely for metabolic management. She also now has extremes of glycemic fluctuations depending on the variability after oral intake as noted thereof. PLAN OF MANAGEMENT: We will continue the added oral hypoglycemic therapy with glipizide given as 10 mg twice a day before meals as ordered to start today. We will also restart a lower dose of the basal insulin given as Levemir at 80 units subcu at bedtime daily to start tonight as given. We will continue the low-dose correction scale using Humalog insulin as ordered. We will obtain serial chemistries and supplement accordingly needed. We will follow. Nita Arguelles MD
--- NOTE | 2018-12-07 19:24 | CP.PCM.PN ---
<Jin Kim - Last Filed: 12/07/18 22:25> Subjective - Date & Time of Evaluation Date of Evaluation: 12/07/18 Time of Evaluation: 08:20 - Subjective Subjective: Jin Kim DO PGY1 Hospitalist Progress Note for Dr Patel Patient seen and examined at bedside. Tolerating her regular diet. She reports no complaints. Her nausea/vomiting improved. No acute events overnight. Objective - Vital Signs/Intake and Output Vital Signs (last 24 hours): Temp Pulse Resp BP Pulse Ox 98.5 F 95 H 19 178/76 H 98 12/07/18 18:00 12/07/18 18:00 12/07/18 18:00 12/07/18 18:00 12/07/18 18:00 Intake and Output: 12/07/18 12/08/18 18:59 06:59 Intake Total 1200 Balance 1200 - Medications Medications: Current Medications Acetaminophen (Tylenol 325mg Tab) 650 mg PO Q6H PRN PRN Reason: Pain, Mild (1-3) Last Admin: 12/07/18 05:30 Dose: 650 mg Alprazolam (Xanax) 0.25 mg PO BID PRN; Protocol PRN Reason: Anxiety Stop: 12/12/18 01:14 Last Admin: 12/07/18 01:12 Dose: 0.25 mg Aspirin (Aspirin Chewable) 81 mg PO DAILY [facility] Last Admin: 12/07/18 09:43 Dose: 81 mg Dextrose (Dextrose 50% Inj) 0 ml IV STAT PRN; Protocol PRN Reason: Hypoglycemia Protocol Enoxaparin Sodium (Lovenox) 30 mg SC DAILY [facility]; Protocol Last Admin: 12/07/18 09:43 Dose: 30 mg Gabapentin (Neurontin) 300 mg PO TID [facility]; Protocol Last Admin: 12/07/18 18:14 Dose: 300 mg Glipizide (Glucotrol) 10 mg PO 0730,1630 [facility] Last Admin: 12/07/18 16:23 Dose: 10 mg Dextrose (Dextrose 5% In Water 1000 Ml) 1,000 mls @ 0 mls/hr IV .Q0M PRN; Protocol PRN Reason: Hypoglycemia Protocol Insulin Detemir (Levemir) 8 unit SC [facility] Insulin Human Lispro (Humalog Low) 0 units SC [facility]; Protocol Last Admin: 12/07/18 16:19 Dose: Not Given Levothyroxine Sodium (Synthroid) 100 mcg PO 0600 [facility] Last Admin: 12/07/18 05:02 Dose: 100 mcg Lisinopril (Zestril) 10 mg PO DAILY [facility] Last Admin: 12/07/18 09:43 Dose: 10 mg Metoclopramide HCl (Reglan) 5 mg IVP ACHS [facility] Last Admin: 12/07/18 16:23 Dose: 5 mg Metoprolol Tartrate (Lopressor) 25 mg PO BID [facility] Last Admin: 12/07/18 17:31 Dose: Not Given Mirtazapine (Remeron) 15 mg PO HS [facility] Last Admin: 12/06/18 21:43 Dose: 15 mg Ondansetron HCl (Zofran Inj) 4 mg IVP Q4H PRN PRN Reason: Nausea/Vomiting Last Admin: 12/06/18 10:22 Dose: 4 mg Pantoprazole Sodium (Protonix Inj) 40 mg IVP DAILY [facility] Last Admin: 12/07/18 09:42 Dose: 40 mg - Labs Labs: 12/07/18 09:30 12/07/18 09:30 - Additional Findings Additional findings: - Constitutional Appears: Well, Non-toxic - Head Exam Head Exam: ATRAUMATIC, NORMAL INSPECTION, NORMOCEPHALIC - Eye Exam Eye Exam: EOMI, Normal appearance, PERRL Pupil Exam: NORMAL ACCOMODATION, PERRL - ENT Exam ENT Exam: Mucous Membranes Moist, Normal Exam - Neck Exam Neck Exam: Normal Inspection - Respiratory Exam Respiratory Exam: Clear to Ausculation Bilateral, NORMAL BREATHING PATTERN - Cardiovascular Exam Cardiovascular Exam: REGULAR RHYTHM, +S1, +S2. absent: JVD, RRR, Murmur - GI/Abdominal Exam GI & Abdominal Exam: Soft, Normal Bowel Sounds. absent: Tenderness - Extremities Exam Extremities Exam: Full ROM, Normal Capillary Refill, Normal Inspection. absent: Joint Swelling, Pedal Edema - Back Exam Back Exam: NORMAL INSPECTION - Neurological Exam Neurological Exam: Alert, Awake, CN II-XII Intact, Oriented x3 - Psychiatric Exam Psychiatric exam: Normal Affect, Normal Mood - Skin Skin Exam: Dry, Intact, Normal Color, Warm Assessment and Plan - Assessment and Plan (Free Text) Assessment: 83 yo female with PMH of uncontrolled DM2, HTN, CKD, hypothyroidism, iron deficiency anemia, anxiety, essential tremor, chronic back pain presented with nausea and vomiting. Found to have hyponatremia and hyperglycemia Plan: Uncontrolled DM2: -BG ranges between 244-4450 for the last 24 hr -oral hypoglycemic added by endo: januvia 25 qd, glipizide 10 bid -levemir adjusted to 8 HS -ISS-L -accucheck -A1C 14 -patient can't adminster insulin because of hand tremors -diabetic education -endo following Dr Arguelles Resolved nausea/vomiting: -patient tolerates solid diet, asymptomatic -CT A/P:diverticulosis and mild constipation -UDS negative -continue reglan ACHS CKD Stage III -BUN/Cr 05/08.1 has been stable -low U osmolality HTN -continue home med asa, lisinopril, metroprolol Resolved Hyperglycemia: -metabolic acidosis with AG, bicarb 20 -responded to IVF and insulin lispro -repeat BMP revealed AG closed Diabetic neuropathy: -resume home med neurontin Hypothyroidism: -resume home med synthroid Chronic back pain: -tylenol prn Anxiety: -continue home med mirtazipine, xanax Essential tremors: -patient reports inability to self-inject insulin due to hand tremors PPX: -DVT: lovenx, SCD -GI: protonix -HHD -PT recommended TCU -aids social worker referral -d/c tele Case reviewed and plan discussed with attending Dr Jorge Kim DO <Flor Patel - Last Filed: 12/08/18 07:23> Objective - Vital Signs/Intake and Output Vital Signs (last 24 hours): Temp Pulse Resp BP Pulse Ox 98.0 F 88 19 157/70 H 95 12/08/18 06:00 12/08/18 06:00 12/08/18 06:00 12/08/18 06:00 12/08/18 06:00 Intake and Output: 12/08/18 12/08/18 06:59 18:59 Intake Total 300 Output Total 500 Balance -200 - Medications Medications: Current Medications Acetaminophen (Tylenol 325mg Tab) 650 mg PO Q6H PRN PRN Reason: Pain, Mild (1-3) Last Admin: 12/07/18 05:30 Dose: 650 mg Alprazolam (Xanax) 0.25 mg PO BID PRN; Protocol PRN Reason: Anxiety Stop: 12/12/18 01:14 Last Admin: 12/07/18 01:12 Dose: 0.25 mg Aspirin (Aspirin Chewable) 81 mg PO DAILY [facility] Last Admin: 12/07/18 09:43 Dose: 81 mg Dextrose (Dextrose 50% Inj) 0 ml IV STAT PRN; Protocol PRN Reason: Hypoglycemia Protocol Enoxaparin Sodium (Lovenox) 30 mg SC DAILY [facility]; Protocol Last Admin: 12/07/18 09:43 Dose: 30 mg Gabapentin (Neurontin) 300 mg PO TID [facility]; Protocol Last Admin: 12/07/18 18:14 Dose: 300 mg Glipizide (Glucotrol) 10 mg PO 0730,1630 [facility] Last Admin: 12/07/18 16:23 Dose: 10 mg Dextrose (Dextrose 5% In Water 1000 Ml) 1,000 mls @ 0 mls/hr IV .Q0M PRN; Protocol PRN Reason: Hypoglycemia Protocol Insulin Detemir (Levemir) 8 unit SC [facility] Last Admin: 12/07/18 21:53 Dose: 8 units Insulin Human Lispro (Humalog Low) 0 units SC [facility]; Protocol Last Admin: 12/07/18 21:52 Dose: 2 units Levothyroxine Sodium (Synthroid) 100 mcg PO 0600 [facility] Last Admin: 12/08/18 05:45 Dose: 100 mcg Lisinopril (Zestril) 10 mg PO DAILY [facility] Last Admin: 12/07/18 09:43 Dose: 10 mg Metoclopramide HCl (Reglan) 5 mg IVP [facility] Last Admin: 12/07/18 21:54 Dose: 5 mg Metoprolol Tartrate (Lopressor) 25 mg PO BID [facility] Last Admin: 12/07/18 17:31 Dose: Not Given Mirtazapine (Remeron) 15 mg PO [facility] Last Admin: 12/07/18 21:54 Dose: 15 mg Ondansetron HCl (Zofran Inj) 4 mg IVP Q4H PRN PRN Reason: Nausea/Vomiting Last Admin: 12/06/18 10:22 Dose: 4 mg Pantoprazole Sodium (Protonix Inj) 40 mg IVP DAILY [facility] Last Admin: 12/07/18 09:42 Dose: 40 mg Sitagliptin Phosphate (Januvia) 25 mg PO DAILY [facility] - Labs Labs: 12/08/18 06:45 12/07/18 09:30 Attending/Attestation - Attestation I have personally seen and examined this patient.: Yes I have fully participated in the care of the patient.: Yes I have reviewed all pertinent clinical information, including history, physical exam and plan: Yes Notes (Text): 12/07/18 83 year old female with past medical history of diabetes, hypertension, hypothyroidism, anxiety, and essential tremor who presented with nausea and vomiting. She was found to have uncontrolled diabetes with early DKA and hyponatremia. Symptoms improved with insulin and iv fluids. GI and endocrinology evaluations were appreciated. N/V have resolved and patient is tolerating diet. Hemoglobin A1c is 14. Patient is on glipizide and started on levemir and januvia. However history of essential tremor may be limiting factor for patient to self administer levemir upon discharge. Will discuss with border guard. Diabetic education requested. Hyponatremia has resolved. PT evaluation was appreciated who recommended TCU. Flor Patel MD Hospitalist.
[2018-12-07] MEDS ORDERED: Insulin Detemir 100 units/ml Vial (Levemir) SC SCH (22:00)
[2018-12-08] MEDS: Levothyroxine 100 MCG TAB PO SCH (05:45)
[2018-12-08 06:59] LABS: BASO # 0.02 K/mm3 (0.0-2.0); BASO % 0.4 % (0.0-3.0); EOS # 0.2 (0.0-0.7); EOS % 3.7 % (1.5-5.0); HEMOGLOBIN 9.7 g/dL (12.0-16.0); LYMPH # 1.6 (1.2-3.4); LYMPH % 31.5 % (22.0-35.0); MEAN CELL VOLUME 86.4 fl (80.0-105.0); MEAN CORPUSCULAR HGB CONC 31.3 g/dl (31.0-37.0); MEAN PLATELET VOLUME 9.4 fl (7.0-11.0); MONO # 0.5 (0.1-0.6); MONO % 8.8 % (1.0-6.0); RBC 3.59 10^6/uL (3.5-6.1); RED CELL DISTRIBUTION WIDTH 14.9 % (11.5-14.5); WHITE BLOOD COUNT 5.1 10^3/uL (4.5-11.0)
[2018-12-08 07:29] LABS: ALB/GLOB RATIO 1.1 (1.1-1.8); ALBUMIN 3.3 g/dL (3.0-4.8)
[2018-12-08] MEDS: Insulin Lispro (humaLOG) LOW Coverage SC SCH ×2 (07:44→12:32)
[2018-12-08] MEDS ORDERED: Magnesium Sulfate 1 gm in D5W 1 GM/100 ML BAG IVPB ONE (07:53)
[2018-12-08] MEDS: Enoxaparin 30 mg Syringe SC SCH (09:34)
[2018-12-08] MEDS ORDERED: POLYETHYLENE GLYCOL 3350 17 GM/Dose PACKET PO SCH (11:30)
--- NOTE | 2018-12-08 11:34 | CP.PCM.PCO ---
Physician Communication Note - Physician Communication Note Physician Communication Note: per patient request spoke to daughter in law tony who agrees to TCU Additional Comments - Additional Comments Additional Comments: pt with recs for tcu per p.magdaleno zamora, pt wanted her daughter in law to advise and asked me to call her - spoke to daughter in law who agrees with TCU tx, info relayed to RN, will await eval
--- NOTE | 2018-12-08 11:52 | CP.PCM.PN ---
<Jerry Mina - Last Filed: 12/08/18 12:21> Subjective - Date & Time of Evaluation Date of Evaluation: 12/08/18 Time of Evaluation: 06:00 - Subjective Subjective: Jerry Mina PGY2 Progress Note for Hospitalist Patient seen and evaluated bedside in AM. No acute issues overnight. Patient denies any acute issues, no headaches, nausea, vomiting, abdominal pain, chets pain, SOB, fever, chills. Objective - Vital Signs/Intake and Output Vital Signs (last 24 hours): Temp Pulse Resp BP Pulse Ox 98.0 F 89 19 143/83 95 12/08/18 06:00 12/08/18 09:36 12/08/18 06:00 12/08/18 09:36 12/08/18 06:00 Intake and Output: 12/08/18 12/08/18 06:59 18:59 Intake Total 300 Output Total 500 Balance -200 - Medications Medications: Current Medications Acetaminophen (Tylenol 325mg Tab) 650 mg PO Q6H PRN PRN Reason: Pain, Mild (1-3) Last Admin: 12/07/18 05:30 Dose: 650 mg Alprazolam (Xanax) 0.25 mg PO BID PRN; Protocol PRN Reason: Anxiety Stop: 12/12/18 01:14 Last Admin: 12/08/18 09:34 Dose: 0.25 mg Aspirin (Aspirin Chewable) 81 mg PO DAILY [facility] Last Admin: 12/08/18 09:35 Dose: 81 mg Dextrose (Dextrose 50% Inj) 0 ml IV STAT PRN; Protocol PRN Reason: Hypoglycemia Protocol Enoxaparin Sodium (Lovenox) 30 mg SC DAILY [facility]; Protocol Last Admin: 12/08/18 09:34 Dose: 30 mg Gabapentin (Neurontin) 300 mg PO TID [facility]; Protocol Last Admin: 12/08/18 09:35 Dose: 300 mg Glipizide (Glucotrol) 10 mg PO 0730,1630 [facility] Last Admin: 12/08/18 08:19 Dose: 10 mg Dextrose (Dextrose 5% In Water 1000 Ml) 1,000 mls @ 0 mls/hr IV .Q0M PRN; Protocol PRN Reason: Hypoglycemia Protocol Insulin Detemir (Levemir) 8 unit SC [facility] Last Admin: 12/07/18 21:53 Dose: 8 units Insulin Human Lispro (Humalog Low) 0 units SC ACHS [facility]; Protocol Last Admin: 12/08/18 07:44 Dose: Not Given Levothyroxine Sodium (Synthroid) 100 mcg PO 0600 [facility] Last Admin: 12/08/18 05:45 Dose: 100 mcg Lisinopril (Zestril) 10 mg PO DAILY [facility] Last Admin: 12/08/18 09:35 Dose: 10 mg Metoclopramide HCl (Reglan) 5 mg PO [facility] Metoprolol Tartrate (Lopressor) 25 mg PO BID [facility] Last Admin: 12/08/18 09:36 Dose: 25 mg Mirtazapine (Remeron) 15 mg PO HS [facility] Last Admin: 12/07/18 21:54 Dose: 15 mg Ondansetron HCl (Zofran Inj) 4 mg IVP Q4H PRN PRN Reason: Nausea/Vomiting Last Admin: 12/06/18 10:22 Dose: 4 mg Pantoprazole Sodium (Protonix Ec Tab) 40 mg PO ACB [facility] Polyethylene Glycol (Miralax) 17 gm PO BID [facility] Sitagliptin Phosphate (Januvia) 25 mg PO DAILY [facility] Last Admin: 12/08/18 09:35 Dose: 25 mg - Labs Labs: 12/08/18 06:45 12/08/18 06:45 - Constitutional Appears: No Acute Distress - Head Exam Head Exam: ATRAUMATIC, NORMAL INSPECTION, NORMOCEPHALIC - Eye Exam Eye Exam: Normal appearance - ENT Exam ENT Exam: Mucous Membranes Moist - Respiratory Exam Respiratory Exam: Clear to Ausculation Bilateral, NORMAL BREATHING PATTERN - Cardiovascular Exam Cardiovascular Exam: REGULAR RHYTHM, +S1, +S2 - GI/Abdominal Exam GI & Abdominal Exam: Soft. absent: Tenderness - Extremities Exam Extremities Exam: absent: Pedal Edema, Tenderness - Neurological Exam Neurological Exam: Alert, Awake, Oriented x3 Assessment and Plan - Assessment and Plan (Free Text) Assessment: 83 yo female with PMH of uncontrolled DM2, HTN, CKD, hypothyroidism, iron defici ency anemia, anxiety, essential tremor, chronic back pain presented with nausea and vomiting, found to have hyponatremia and hyperglycemia. Plan: Uncontrolled DM2 with Hyperglycemia -A1C 14 -BG ranges between 242 -started on januvia 25 qd, continue glipizide 10 bid -levemir 8 HS -ISS-L -accucheck -patient can't administer insulin due to hand tremors -diabetic education -endo following Dr Arguelles, follow recs Nausea/vomiting -resolved -patient tolerating diet -D/C reglan Hypomagnesia -Mg 1.6 -repleted, follow HTN -continue home meds Diabetic neuropathy -continue home neurontin Hypothyroidism -continue home synthroid Chronic back pain -tylenol prn Anxiety -continue home med mirtazipine, xanax PPX: -DVT: SCD -GI: protonix -HHD -PT will be admitted to TCU <Flor Patel - Last Filed: 12/08/18 12:41> Objective - Vital Signs/Intake and Output Vital Signs (last 24 hours): Temp Pulse Resp BP Pulse Ox 97.5 F L 65 16 149/69 97 12/08/18 11:00 12/08/18 11:00 12/08/18 11:00 12/08/18 11:00 12/08/18 11:00 Intake and Output: 12/08/18 12/08/18 06:59 18:59 Intake Total 300 Output Total 500 Balance -200 - Medications Medications: Current Medications Acetaminophen (Tylenol 325mg Tab) 650 mg PO Q6H PRN PRN Reason: Pain, Mild (1-3) Last Admin: 12/07/18 05:30 Dose: 650 mg Alprazolam (Xanax) 0.25 mg PO BID PRN; Protocol PRN Reason: Anxiety Stop: 12/12/18 01:14 Last Admin: 12/08/18 09:34 Dose: 0.25 mg Aspirin (Aspirin Chewable) 81 mg PO DAILY [facility] Last Admin: 12/08/18 09:35 Dose: 81 mg Dextrose (Dextrose 50% Inj) 0 ml IV STAT PRN; Protocol PRN Reason: Hypoglycemia Protocol Enoxaparin Sodium (Lovenox) 30 mg SC DAILY [facility]; Protocol Last Admin: 12/08/18 09:34 Dose: 30 mg Gabapentin (Neurontin) 300 mg PO TID [facility]; Protocol Last Admin: 12/08/18 09:35 Dose: 300 mg Glipizide (Glucotrol) 10 mg PO 0730,1630 [facility] Last Admin: 12/08/18 08:19 Dose: 10 mg Dextrose (Dextrose 5% In Water 1000 Ml) 1,000 mls @ 0 mls/hr IV .Q0M PRN; Protocol PRN Reason: Hypoglycemia Protocol Insulin Detemir (Levemir) 8 unit SC [facility] Last Admin: 12/07/18 21:53 Dose: 8 units Insulin Human Lispro (Humalog Low) 0 units SC ACHS [facility]; Protocol Last Admin: 12/08/18 12:32 Dose: 2 units Levothyroxine Sodium (Synthroid) 100 mcg PO 0600 [facility] Last Admin: 12/08/18 05:45 Dose: 100 mcg Lisinopril (Zestril) 10 mg PO DAILY [facility] Last Admin: 12/08/18 09:35 Dose: 10 mg Metoprolol Tartrate (Lopressor) 25 mg PO BID [facility] Last Admin: 12/08/18 09:36 Dose: 25 mg Mirtazapine (Remeron) 15 mg PO [facility] Last Admin: 12/07/18 21:54 Dose: 15 mg Ondansetron HCl (Zofran Inj) 4 mg IVP Q4H PRN PRN Reason: Nausea/Vomiting Last Admin: 12/06/18 10:22 Dose: 4 mg Pantoprazole Sodium (Protonix Ec Tab) 40 mg PO ACB [facility] Polyethylene Glycol (Miralax) 17 gm PO BID [facility] Last Admin: 12/08/18 12:32 Dose: 17 gm Sitagliptin Phosphate (Januvia) 25 mg PO DAILY [facility] Last Admin: 12/08/18 09:35 Dose: 25 mg - Labs Labs: 12/08/18 06:45 12/08/18 06:45 Attending/Attestation - Attestation I have personally seen and examined this patient.: Yes I have fully participated in the care of the patient.: Yes I have reviewed all pertinent clinical information, including history, physical exam and plan: Yes Notes (Text): 12/08/18 12:39 83 year old female with past medical history of diabetes, hypertension, hypothyroidism, anxiety, and essential tremor who presented with nausea and vomiting. She was found to have uncontrolled diabetes with early DKA and hyponatremia. Symptoms improved with insulin and iv fluids. GI and endocr inology evaluations were appreciated. N/V have resolved and patient is tolerating diet. Will discontinue her reglan. Hemoglobin A1c is 14. Patient is on glipizide and started on levemir and januvia. However history of essential tremor may be limiting factor for patient to self administer levemir upon discharge. Will discuss with gasket notcher. She was seen by the personal development educator this morning. Hyponatremia has resolved. Will replete and repeat magnesium. PT evaluation was appreciated who recommended TCU. D/c planning to TCU today if patient is agreeable and accepted. Flor Patel MD Hospitalist.
[2018-12-08 12:03] VITALS: BP 149/69; PULSE 65; RESP 16; TEMP 97.5; O2SAT 97
--- NOTE | 2018-12-08 12:42 | CP.PCM.DIS ---
<Jerry Mina - Last Filed: 12/08/18 13:31> Provider - Provider Date of Admission: 12/04/18 23:37 Attending physician: Flor Patel MD Consults: 12/05/18 02:44 Social Work Referral Routine Comment: flo score 14 Physician Instructions: Reason For Exam: admission assessment protocol 12/05/18 07:28 Gastroenterology Consult Routine Comment: Consulting Provider: Lucho Pierce Consulting Physician: Lucho Pierce Reason for Consult: nausea, vomiting 12/05/18 13:23 Endocrinology Consult Routine Comment: Consulting Provider: Nita Arguelles Consulting Physician: Nita Arguelles Reason for Consult: uncontrolled DM 12/05/18 13:26 Physician Consult Routine Comment: Consulting Provider: Jose Rodriguez Consulting Physician: Jose Rodriguez Reason for Consult: nausea, vomiting, high agap 12/06/18 08:57 Diabetic Education Referral Routine Comment: Physician Instructions: Reason For Exam: Patient starting insulin new 12/08/18 06:05 TCU [Evaluation for TRCU] Routine Comment: Physician Instructions: Reason For Exam: eval Time Spent in preparation of Discharge (in minutes): 35 Hospital Course - Lab Results Lab Results: Micro Results 12/04/18 21:15 Urine,Clean Catch Urine Culture - Final 50-100,000 CFU/ML. MULTIPLE SPECIES. SUGGEST REPEAT SPECIMEN. Most Recent Lab Values WBC 5.1 10^3/uL (4.5-11.0) 12/08/18 06:45 RBC 3.59 10^6/uL (3.5-6.1) 12/08/18 06:45 Hgb 9.7 g/dL (12.0-16.0) L 12/08/18 06:45 Hct 31.0 % (36.0-48.0) L 12/08/18 06:45 MCV 86.4 fl (80.0-105.0) 12/08/18 06:45 MCH 27.0 pg (25.0-35.0) 12/08/18 06:45 MCHC 31.3 g/dl (31.0-37.0) 12/08/18 06:45 RDW 14.9 % (11.5-14.5) H 12/08/18 06:45 Plt Count 230 10^3/uL (120.0-450.0) 12/08/18 06:45 MPV 9.4 fl (7.0-11.0) 12/08/18 06:45 Neut % (Auto) 55.6 % (50.0-68.0) 12/08/18 06:45 Lymph % (Auto) 31.5 % (22.0-35.0) 12/08/18 06:45 [place] % (Auto) 8.8 % (1.0-6.0) H 12/08/18 06:45 Eos % (Auto) 3.7 % (1.5-5.0) 12/08/18 06:45 Baso % (Auto) 0.4 % (0.0-3.0) 12/08/18 06:45 Lymph # (Auto) 1.6 (1.2-3.4) 12/08/18 06:45 [place] # (Auto) 0.5 (0.1-0.6) 12/08/18 06:45 Eos # (Auto) 0.2 (0.0-0.7) 12/08/18 06:45 Baso # (Auto) 0.02 K/mm3 (0.0-2.0) 12/08/18 06:45 Absolute Neuts (auto) 2.86 (1.4-6.5) 12/08/18 06:45 pO2 47 mm/Hg (30-55) 12/05/18 06:30 VBG pH 7.24 (7.32-7.43) L 12/05/18 06:30 VBG pCO2 47.0 (40-60) 12/05/18 06:30 VBG HCO3 20.1 mmol/l (21-28) L 12/05/18 06:30 VBG Total CO2 21.5 mmol.L (22-28) L 12/05/18 06:30 VBG O2 Sat (Calc) 78.2 % (40-65) H 12/05/18 06:30 VBG Base Excess -7.3 mmol/L (0.0-2.0) L 12/05/18 06:30 VBG Potassium 4.5 mmol/L (3.6-5.2) 12/05/18 06:30 Sodium 126.0 mmol/L (132-148) L 12/05/18 06:30 Chloride 91.0 mmol/L (98-107) L 12/05/18 06:30 Glucose 309 mg/dl (65-105) H 12/05/18 06:30 Lactate 1.6 mmol/L (0.7-2.1) 12/05/18 06:30 FiO2 21.0 % 12/05/18 06:30 Crit Value Called To Jimena tavarez 12/05/18 06:30 Crit Value Called By Marta 12/05/18 06:30 Blood Gas Notified Time 656 12/05/18 06:30 Sodium 137 mmol/L (132-148) 12/08/18 06:45 Potassium 4.3 mmol/L (3.6-5.0) 12/08/18 06:45 Chloride 107 mmol/L (98-107) 12/08/18 06:45 Carbon Dioxide 24 mmol/L (21-33) 12/08/18 06:45 Anion Gap 10 (10-20) 12/08/18 06:45 BUN 12 mg/dL (7-21) 12/08/18 06:45 Creatinine 1.2 mg/dl (0.7-1.2) 12/08/18 06:45 Est GFR ( Amer) 52 12/08/18 06:45 Est GFR (Non-Af Amer) 43 12/08/18 06:45 POC Glucose (mg/dL) 376 mg/dL (65-110) H 12/08/18 11:28 Random Glucose 242 mg/dL (70-110) H 12/08/18 06:45 Hemoglobin A1c 14.0 % (4.2-6.5) H 12/05/18 06:30 Serum Osmolality 282 mosm/kg (272-300) 12/05/18 06:30 Calcium 9.0 mg/dL (8.4-10.5) 12/08/18 06:45 Phosphorus 4.0 mg/dL (2.5-4.5) 12/04/18 20:15 Magnesium 1.6 mg/dL (1.7-2.2) L 12/08/18 06:45 Total Bilirubin 0.2 mg/dL (0.2-1.3) 12/08/18 06:45 AST 29 U/L (14-36) 12/08/18 06:45 ALT 15 U/L (7-56) 12/08/18 06:45 Alkaline Phosphatase 100 U/L (38-126) 12/08/18 06:45 Lactate Dehydrogenase 468 U/L (333-699) 12/04/18 20:15 Total Creatine Kinase < 20 U/L (35-230) L 12/04/18 20:15 Troponin I < 0.01 ng/mL 12/04/18 20:15 Total Protein 6.3 g/dL (5.8-8.3) 12/08/18 06:45 Albumin 3.3 g/dL (3.0-4.8) 12/08/18 06:45 Globulin 3.1 gm/dL 12/08/18 06:45 Albumin/Globulin Ratio 1.1 (1.1-1.8) 12/08/18 06:45 Lipase 71 U/L (23-300) 12/05/18 06:30 Thyroxine (T4) 8.3 ug/dL (5.5-11.0) 12/06/18 08:00 TSH 3rd Generation 0.81 mIU/mL (0.46-4.68) 12/06/18 08:00 Venous Blood Potassium 4.5 mmol/L (3.6-5.2) 12/05/18 06:30 Urine Color yellow (YELLOW) 12/04/18 21:15 Urine Appearance Clear (CLEAR) 12/04/18 21:15 Urine pH 6.5 (4.7-8.0) 12/04/18 21:15 Ur Specific [place] 1.020 (1.005-1.035) 12/04/18 21:15 Urine Protein 100 mg/dL (<30 mg/dL) H 12/04/18 21:15 Urine Glucose (UA) 500 mg/dL (NEGATIVE) H 12/04/18 21:15 Urine Ketones Trace mg/dL (NEGATIVE) H 12/04/18 21:15 Urine Blood Negative (NEGATIVE) 12/04/18 21:15 Urine Nitrate Negative (NEGATIVE) 12/04/18 21:15 Urine Bilirubin Negative (NEGATIVE) 12/04/18 21:15 Urine Urobilinogen 0.2 E.U./dL (<1 E.U./dL) 12/04/18 21:15 Ur Leukocyte Esterase Negative Tracey/uL (NEGATIVE) 12/04/18 21:15 Urine RBC 5 - 10 /hpf (0-2) H 12/04/18 21:15 Urine WBC 2 - 5 /hpf (0-6) 12/04/18 21:15 Ur Epithelial Cells 6 - 8 /hpf (0-5) H 12/04/18 21:15 Urine Osmolality 289 mosm/kg (300-1000) L 12/06/18 11:30 Ur Random Sodium 82 meq/L 12/06/18 11:30 Urine Opiates Screen Negative (NEGATIVE) 12/06/18 11:30 Urine Methadone Screen Negative (NEGATIVE) 12/06/18 11:30 Ur Barbiturates Screen Negative (NEGATIVE) 12/06/18 11:30 Ur Phencyclidine Scrn Negative (NEGATIVE) 12/06/18 11:30 Ur Amphetamines Screen Negative (NEGATIVE) 12/06/18 11:30 U Benzodiazepines Scrn Negative (NEGATIVE) 12/06/18 11:30 U Oth Cocaine Metabols Negative (NEGATIVE) 12/06/18 11:30 U Cannabinoids Screen Negative (NEGATIVE) 12/06/18 11:30 - Hospital Course Hospital Course: 83 year old female with past medical history of diabetes, hypertension, hypothyroidism, anxiety, and essential tremor presented with nausea and vomiting. She was initially found to have uncontrolled diabetes with early DKA and hyponatremia. Hemoglobin A1c is was found to be 14. Patient was given insulin and started on IV fluids. GI was consulted and she was started on reglan. CT Abdomen Pelvis was done and showed possible diverticulosis. During the course of her stay her nausea and vomiting resolved and she tolerated a diet. Patient was started on glipizide, levemir and januvia. Diabetic education was given. Physical therapy was consulted and TCU was recommended. TCU evaluation was accepted and patient will be in TCU for rehab. Discharge Exam - Head Exam Head Exam: ATRAUMATIC, NORMAL INSPECTION, NORMOCEPHALIC - Eye Exam Eye Exam: Normal appearance - Respiratory Exam Respiratory Exam: Clear to PA & Lateral, NORMAL BREATHING PATTERN - Cardiovascular Exam Cardiovascular Exam: REGULAR RHYTHM, +S1, +S2 - GI/Abdominal Exam GI & Abdominal Exam: Normal Bowel Sounds, Soft - Neurological Exam Neurological exam: Alert, Oriented x3 - Skin Skin Exam: Normal Color, Warm Discharge Plan - Follow Up Plan Condition: FAIR Disposition: REHAB FACILITY/REHAB UNIT Instructions: Insulin Injection Additional Instructions: Discharge to TCU continue all orders <Flor Patel - Last Filed: 12/08/18 13:45> Provider - Provider Date of Admission: 12/04/18 23:37 Attending physician: Flor Patel MD Consults: 12/05/18 02:44 Social Work Referral Routine Comment: flo score 14 Physician Instructions: Reason For Exam: admission assessment protocol 12/05/18 07:28 Gastroenterology Consult Routine Comment: Consulting Provider: Lucho Pierce Consulting Physician: Lucho Pierce Reason for Consult: nausea, vomiting 12/05/18 13:23 Endocrinology Consult Routine Comment: Consulting Provider: Nita Arguelles Consulting Physician: Nita Arguelles Reason for Consult: uncontrolled DM 12/05/18 13:26 Physician Consult Routine Comment: Consulting Provider: Jose Rodriguez Consulting Physician: Jose Rodriguez Reason for Consult: nausea, vomiting, high agap 12/06/18 08:57 Diabetic Education Referral Routine Comment: Physician Instructions: Reason For Exam: Patient starting insulin new 12/08/18 06:05 TCU [Evaluation for TRCU] Routine Comment: Physician Instructions: Reason For Exam: [facility] Hospital Course - Lab Results Lab Results: Micro Results 12/04/18 21:15 Urine,Clean Catch Urine Culture - Final 50-100,000 CFU/ML. MULTIPLE SPECIES. SUGGEST REPEAT SPECIMEN. Most Recent Lab Values WBC 5.1 10^3/uL (4.5-11.0) 12/08/18 06:45 RBC 3.59 10^6/uL (3.5-6.1) 12/08/18 06:45 Hgb 9.7 g/dL (12.0-16.0) L 12/08/18 06:45 Hct 31.0 % (36.0-48.0) L 12/08/18 06:45 MCV 86.4 fl (80.0-105.0) 12/08/18 06:45 MCH 27.0 pg (25.0-35.0) 12/08/18 06:45 MCHC 31.3 g/dl (31.0-37.0) 12/08/18 06:45 RDW 14.9 % (11.5-14.5) H 12/08/18 06:45 Plt Count 230 10^3/uL (120.0-450.0) 12/08/18 06:45 MPV 9.4 fl (7.0-11.0) 12/08/18 06:45 Neut % (Auto) 55.6 % (50.0-68.0) 12/08/18 06:45 Lymph % (Auto) 31.5 % (22.0-35.0) 12/08/18 06:45 [place] % (Auto) 8.8 % (1.0-6.0) H 12/08/18 06:45 Eos % (Auto) 3.7 % (1.5-5.0) 12/08/18 06:45 Baso % (Auto) 0.4 % (0.0-3.0) 12/08/18 06:45 Lymph # (Auto) 1.6 (1.2-3.4) 12/08/18 06:45 [place] # (Auto) 0.5 (0.1-0.6) 12/08/18 06:45 Eos # (Auto) 0.2 (0.0-0.7) 12/08/18 06:45 Baso # (Auto) 0.02 K/mm3 (0.0-2.0) 12/08/18 06:45 Absolute Neuts (auto) 2.86 (1.4-6.5) 12/08/18 06:45 pO2 47 mm/Hg (30-55) 12/05/18 06:30 VBG pH 7.24 (7.32-7.43) L 12/05/18 06:30 VBG pCO2 47.0 (40-60) 12/05/18 06:30 VBG HCO3 20.1 mmol/l (21-28) L 12/05/18 06:30 VBG Total CO2 21.5 mmol.L (22-28) L 12/05/18 06:30 VBG O2 Sat (Calc) 78.2 % (40-65) H 12/05/18 06:30 VBG Base Excess -7.3 mmol/L (0.0-2.0) L 12/05/18 06:30 VBG Potassium 4.5 mmol/L (3.6-5.2) 12/05/18 06:30 Sodium 126.0 mmol/L (132-148) L 12/05/18 06:30 Chloride 91.0 mmol/L (98-107) L 12/05/18 06:30 Glucose 309 mg/dl (65-105) H 12/05/18 06:30 Lactate 1.6 mmol/L (0.7-2.1) 12/05/18 06:30 FiO2 21.0 % 12/05/18 06:30 Crit Value Called To Jimena tavarez 12/05/18 06:30 Crit Value Called By Marta 12/05/18 06:30 Blood Gas Notified Time 656 12/05/18 06:30 Sodium 137 mmol/L (132-148) 12/08/18 06:45 Potassium 4.3 mmol/L (3.6-5.0) 12/08/18 06:45 Chloride 107 mmol/L (98-107) 12/08/18 06:45 Carbon Dioxide 24 mmol/L (21-33) 12/08/18 06:45 Anion Gap 10 (10-20) 12/08/18 06:45 BUN 12 mg/dL (7-21) 12/08/18 06:45 Creatinine 1.2 mg/dl (0.7-1.2) 12/08/18 06:45 Est GFR ( Amer) 52 12/08/18 06:45 Est GFR (Non-Af Amer) 43 12/08/18 06:45 POC Glucose (mg/dL) 376 mg/dL (65-110) H 12/08/18 11:28 Random Glucose 242 mg/dL (70-110) H 12/08/18 06:45 Hemoglobin A1c 14.0 % (4.2-6.5) H 12/05/18 06:30 Serum Osmolality 282 mosm/kg (272-300) 12/05/18 06:30 Calcium 9.0 mg/dL (8.4-10.5) 12/08/18 06:45 Phosphorus 4.0 mg/dL (2.5-4.5) 12/04/18 20:15 Magnesium 1.6 mg/dL (1.7-2.2) L 12/08/18 06:45 Total Bilirubin 0.2 mg/dL (0.2-1.3) 12/08/18 06:45 AST 29 U/L (14-36) 12/08/18 06:45 ALT 15 U/L (7-56) 12/08/18 06:45 Alkaline Phosphatase 100 U/L (38-126) 12/08/18 06:45 Lactate Dehydrogenase 468 U/L (333-699) 12/04/18 20:15 Total Creatine Kinase < 20 U/L (35-230) L 12/04/18 20:15 Troponin I < 0.01 ng/mL 12/04/18 20:15 Total Protein 6.3 g/dL (5.8-8.3) 12/08/18 06:45 Albumin 3.3 g/dL (3.0-4.8) 12/08/18 06:45 Globulin 3.1 gm/dL 12/08/18 06:45 Albumin/Globulin Ratio 1.1 (1.1-1.8) 12/08/18 06:45 Lipase 71 U/L (23-300) 12/05/18 06:30 Thyroxine (T4) 8.3 ug/dL (5.5-11.0) 12/06/18 08:00 TSH 3rd Generation 0.81 mIU/mL (0.46-4.68) 12/06/18 08:00 Venous Blood Potassium 4.5 mmol/L (3.6-5.2) 12/05/18 06:30 Urine Color yellow (YELLOW) 12/04/18 21:15 Urine Appearance Clear (CLEAR) 12/04/18 21:15 Urine pH 6.5 (4.7-8.0) 12/04/18 21:15 Ur Specific [place] 1.020 (1.005-1.035) 12/04/18 21:15 Urine Protein 100 mg/dL (<30 mg/dL) H 12/04/18 21:15 Urine Glucose (UA) 500 mg/dL (NEGATIVE) H 12/04/18 21:15 Urine Ketones Trace mg/dL (NEGATIVE) H 12/04/18 21:15 Urine Blood Negative (NEGATIVE) 12/04/18 21:15 Urine Nitrate Negative (NEGATIVE) 12/04/18 21:15 Urine Bilirubin Negative (NEGATIVE) 12/04/18 21:15 Urine Urobilinogen 0.2 E.U./dL (<1 E.U./dL) 12/04/18 21:15 Ur Leukocyte Esterase Negative [place]acey/uL (NEGATIVE) 12/04/18 21:15 Urine RBC 5 - 10 /hpf (0-2) H 12/04/18 21:15 Urine WBC 2 - 5 /hpf (0-6) 12/04/18 21:15 Ur Epithelial Cells 6 - 8 /hpf (0-5) H 12/04/18 21:15 Urine Osmolality 289 mosm/kg (300-1000) L 12/06/18 11:30 Ur Random Sodium 82 meq/L 12/06/18 11:30 Urine Opiates Screen Negative (NEGATIVE) 12/06/18 11:30 Urine Methadone Screen Negative (NEGATIVE) 12/06/18 11:30 Ur Barbiturates Screen Negative (NEGATIVE) 12/06/18 11:30 Ur Phencyclidine Scrn Negative (NEGATIVE) 12/06/18 11:30 Ur Amphetamines Screen Negative (NEGATIVE) 12/06/18 11:30 U Benzodiazepines Scrn Negative (NEGATIVE) 12/06/18 11:30 U Oth Cocaine Metabols Negative (NEGATIVE) 12/06/18 11:30 U Cannabinoids Screen Negative (NEGATIVE) 12/06/18 11:30 Attending/Attestation - Attestation I have personally seen and examined this patient.: Yes I have fully participated in the care of the patient.: Yes I have reviewed all pertinent clinical information, including history, physical exam and plan: Yes Notes (Text): 12/08/18 13:43 83 year old female with past medical history of diabetes, hypertension, hypothyroidism, anxiety, and essential tremor who presented with nausea and vomiting. She was found to have uncontrolled diabetes with early DKA and hyponatremia. Symptoms improved with insulin and iv fluids. She was seen by GI and also had endocrinology evaluation. N/V have resolved after starting reglan. Patient is tolerating diet. Hemoglobin A1c is 14. Patient is on glipizide and started on levemir and januvia. However history of essential tremor may be limiting factor for patient to self administer levemir upon discharge. Will discuss with set builder. She was seen by the advertising coordinator this morning. Hyponatremia has resolved. Patient is agreeable to go to TCU. Will follow up while in TCU. Flor Patel MD Hospitalist.
--- NOTE | 2018-12-08 16:51 | PN ---
DATE: 12/08/2018 SUBJECTIVE: The patient is sitting up in bed. She was just transferred from telemetry unit. She was admitted with 1-day history of nausea and vomiting, felt secondary to DKA. Her serum bicarbonate this morning is normal. She has not had any further nausea or vomiting. She is tolerating solid foods. She states that she has not had a bowel movement in 3 days. PHYSICAL EXAMINATION: VITAL SIGNS: Revealed temperature 98, blood pressure 143/83, and heart rate of 89. HEENT: Reveal sclerae to be white. Conjunctivae pink. NECK: Supple. CHEST: Lungs are clear. HEART: Reveals regular rate and rhythm. ABDOMEN: Soft, nontender. No mass. EXTREMITIES: Show no edema. LABORATORY DATA: Reveal white blood cell count 5.1, hemoglobin 9.7. Chemistries reveal BUN 12, creatinine 1.2, bicarb this morning is 24, anion gap is 10, and blood sugar this morning 367. IMPRESSION: An 83-year-old female with multiple comorbidities including poorly-controlled diabetes mellitus, chronic anemia, admitted to the hospital with 24 hours of nausea and vomiting, found to be in diabetic ketoacidosis. The patient has been started on insulin. Her nausea and vomiting resolved fairly quickly. She is not tolerating solid food. She has not had a bowel movement in 3 days. RECOMMENDATIONS: We will start the patient on MiraLax 17 g twice a day. She is stable from GI. Lucho Pierce MD
--- NOTE | 2018-12-08 20:18 | PN ---
DATE: 12/08/2018 ENDOCRINOLOGY FOLLOWUP NOTE LOCATION: Room 368. SUBJECTIVE: This is an 83-year-old female with recent uncontrolled type 2 insulin-requiring diabetes, presenting here with intractable vomiting and supervening upper abdominal pain with nausea and dyspepsia and has now improved clinically and metabolically as noted thereof. However, her glycemic fluctuations have persisted with the hyperglycemic accelerations overnight and glucose levels have ranged from 367-376 mg/dL. It was 192 at 1:00 this morning but 353 at bedtime last night. LABORATORY DATA: Her chemistry showed a BUN of 12, sodium 137, potassium 4.3, chloride 107, CO2 of 24, glucose 242 and creatinine 1.2. ASSESSMENT: This is an 83-year-old female with recent uncontrolled type 2 insulin-requiring diabetes, presenting here with intractable vomiting and upper abdominal pain with nausea and dyspepsia since then improved clinically and metabolically as noted thereof. However, her glycemic levels are fluctuating with supervening hyperglycemic accelerations despite the insulin dose adjustments as undertaken thereof. PLAN OF MANAGEMENT: We will modify her current oral hypoglycemic therapy and increase the Januvia to 50 mg once daily to start tomorrow morning as ordered. We will continue the glipizide given as 10 mg b.i.d. before meals as ordered. We will also titrate her basal insulin and increase the Levemir to 10 units subcutaneously at bedtime daily to start tonight. Should the patient is extremely sensitive to insulin prudently titrate her dose regimen only once on every few days as indicated. We will obtain serial chemistries and supplement accordingly needed. We will follow. Nita Arguelles MD
[2018-12-08] MEDS ORDERED: Insulin Detemir 100 units/ml Vial (Levemir) SC SCH (22:00)
[2018-12-09] MEDS ORDERED: Pantoprazole 40 mg EC Tab PO SCH (07:30)
== END 2018-12-08 15:41 | DRG 638 ==
LOC: ED 18:33 → ERH 23:37 → 2RSO 12-05 01:53 → 3RNO 12-08 11:30
PROVIDERS: ADMIT Internal Medicine; ATTEND Internal Medicine
DX: E11.10 Type 2 diabetes mellitus with ketoacidosis without coma (principal); E87.1 Hypo-osmolality and hyponatremia; E11.43 Type 2 diabetes mellitus with diabetic autonomic (poly)neuropathy; K31.84 Gastroparesis; K21.9 Gastro-esophageal reflux disease without esophagitis; I12.9 Hypertensive chronic kidney disease with stage 1 through stage 4 chronic kidney disease, or unspecified chronic kidney disease; N18.3 Chronic kidney disease, stage 3 (moderate); G89.29 Other chronic pain; G25.0 Essential tremor; F41.9 Anxiety disorder, unspecified; E11.22 Type 2 diabetes mellitus with diabetic chronic kidney disease; E03.9 Hypothyroidism, unspecified; D50.9 Iron deficiency anemia, unspecified; M54.9 Dorsalgia, unspecified; Z79.890 Hormone replacement therapy; Z79.899 Other long term (current) drug therapy; Z79.84 Long term (current) use of oral hypoglycemic drugs; E87.5 Hyperkalemia; K59.00 Constipation, unspecified; K57.30 Diverticulosis of large intestine without perforation or abscess without bleeding; Z80.0 Family history of malignant neoplasm of digestive organs; Z83.3 Family history of diabetes mellitus; E11.319 Type 2 diabetes mellitus with unspecified diabetic retinopathy without macular edema; E78.00 Pure hypercholesterolemia, unspecified; E78.5 Hyperlipidemia, unspecified; E86.0 Dehydration; F41.1 Generalized anxiety disorder; J44.9 Chronic obstructive pulmonary disease, unspecified; Z79.4 Long term (current) use of insulin; Z82.49 Family history of ischemic heart disease and other diseases of the circulatory system; Z87.440 Personal history of urinary (tract) infections; Z87.891 Personal history of nicotine dependence; Z90.49 Acquired absence of other specified parts of digestive tract